=== PATIENT | female | born 1930 | race Caucasian/White ===

== ENCOUNTER 2016-09-30 22:09 | Inpatient (IN) | payer MEDICARE ==
--- NOTE | 2016-09-30 22:26 | ER Document Report ---
ED Fall - General Mode of Arrival: Medic Information source: Relative, Emergency Med Personnel Cannot obtain history due to: Dementia TRAVEL OUTSIDE OF THE [place] IN LAST 30 DAYS: No - HPI Occurred: Just prior to arrival Where: Home Context: Tripped Severity: Severe <LUTHER MADDEN - Last Filed: 09/30/16 22:44> <MANNYJODY - Last Filed: 10/24/16 11:04> - General Stated Complaint: FALL/CHEST AND HIP PAIN Notes: Patient is an 86-year-old female that presents to the emergency department today secondary to a fall that occurred at home. According to EMS and the at bedside, the patient tripped while getting up from the kitchen table falling on her left side. states the patient hit her head, landing on her left hip and left chest. Patient is severely demented which is baseline according to at bedside. EMS reports an oxygen saturation 85% on arrival which raised to 96% on 4L oxygen via nasal cannula. Patient is not on home oxygen according to . states the patient did not lose consciousness during the fall. Patient is on plavix. (LUTHER MADDEN) - Related data Allergies/Adverse Reactions: adhesive tape [Adhesive Tape] Allergy (Verified 09/30/16 23:24) alatrofloxacin mesylate [From Trovan] Allergy (Verified 09/30/16 23:24) aspirin [Aspirin] Allergy (Verified 09/30/16 23:24) codeine [Codeine] Allergy (Verified 09/30/16 23:24) diazepam [From Valium] Allergy (Verified 09/30/16 23:24) morphine [Morphine] Allergy (Verified 09/30/16 23:24) oxycodone [Oxycodone] Allergy (Verified 09/30/16 23:24) Shellfish * [Shellfish] Allergy (Verified 09/30/16 23:24) trovafloxacin mesylate [From Trovan] Allergy (Verified 09/30/16 23:24) darvel Allergy (Uncoded 09/30/16 23:24) dust Allergy (Uncoded 09/30/16 23:24) mold Allergy (Uncoded 09/30/16 23:24) steroids Allergy (Uncoded 09/30/16 23:24) Past Medical History - General Information source: [facility] Records Cannot obtain history due to: Dementia - Social History Smoking Status: Unknown if Ever Smoked Cigarette use (# per day): No Frequency of alcohol use: None Drug Abuse: None Lives with: Spouse/Significant other Family History: Reviewed & Not Pertinent - Past Medical History Cardiac Medical History: Reports: Hx Congestive Heart Failure, Hx Coronary Artery Disease, Hx Hypertension Endocrine Medical History: Reports: Hx Diabetes Mellitus Type 2 GI Medical History: Reports: Hx Gastroesophageal Reflux Disease, Hx Hiatal Hernia Past Surgical History: Reports: Hx Appendectomy, Hx Cardiac Surgery - Cardiac stent placed, Hx Section, Hx Coronary Stent, Hx Orthopedic Surgery - Immunizations Hx Diphtheria, Pertussis, Tetanus Vaccination: Yes <LUTHER MADDEN - Last Filed: 09/30/16 22:44> Review of Systems - Review of Systems -: Yes ROS unobtainable due to patient's medical condition - demented <LUTHER MADDEN - Last Filed: 09/30/16 22:44> Physical Exam <LUTHER MADDEN - Last Filed: 09/30/16 22:44> <JODY BRYANT - Last Filed: 10/24/16 11:04> - Vital signs Vitals: Temp Resp BP Pulse Ox 97.9 F 38 H 170/72 H 100 09/30/16 22:33 09/30/16 22:33 09/30/16 22:33 09/30/16 22:33 - Notes Notes: Physical Exam: General: Alert, confused at baseline according to at bedside. HEENT: Abrasion over left temporal area with surrounding hematoma. PERRL. Extraocular movements intact. Oropharynx clear. Neck: Supple. Non-tender. Respiratory: Tachypneic, equal breath sounds bilaterally. Left sided chest wall tenderness with palpation. Cardiovascular: Regular rate and rhythm. Abdominal: Normal Inspection. Non-tender. No distension. Normal Bowel Sounds. Back: Non-tender. No deformity or step off. Upper extremities: Skin tear over left elbow, bandage in place, bleeding controlled. Lower extremities: Left leg is shortened and externally rotated. Neurological: demented at baseline according to at bedside Psychological: unable to assess secondary to mental status Skin: Hematoma over left temporal area. (LUTHER MADDEN) Course <LUTHER MADDEN - Last Filed: 09/30/16 22:44> - Laboratory Result Diagrams: 10/05/16 04:32 10/05/16 04:32 <JODY BRYANT - Last Filed: 10/24/16 11:04> - Re-evaluation Re-evalutation: 10/01/16 04:39 Patient presents emergency department after fall. states she has a history of dementia medications include thyroid arthritis gastroesophageal reflux disease high blood pressure and jox-yphherl-ytsbdwxtg diabetes she is also on Plavix but he is not sure why. He says that her feet got tangled up she doesn't walk well. He states her foot got caught up underneath the dinner table and she fell onto her left side. On ED arrival the patient is dementia swinging at me unable to get a full history which she says is her baseline. Initially her O2 sat was 85% on room air. I sent her for a CT of the head and cervical spine portable chest x-ray CT of the thoracic spine CT of the chest x-ray of pelvis bilateral hips. She has a left femoral neck fracture as well as a left second third fourth fifth rib fracture. Multiple reassessments she is actually sleeping in no acute respiratory distress not requiring any oxygen. I contacted Dr. Felipe who is on for orthopedics who said he would be on consultation for her. I contacted surgery Dr. Duff for consultation in regards to the rib fractures and concerns for development in the future of ARDS pleural effusion. I then called Dr. Mills the hospitalist who agreed to admit the patient to the hospital full admit telemetry. Updated the . Right now the patient is sleeping she is not in any respiratory distress she is not hypoxic not requiring any pain medication. She's got good pulses and perfusion. Patient also with coincidental urinary tract infection which I gave her Rocephin for. 10/01/16 04:53 10/01/16 04:54 (JODY BRYANT) - Vital Signs Vital signs: Temp Pulse Resp BP Pulse Ox 97.7 F 87 10 L 134/60 H 99 10/06/16 16:00 10/06/16 16:00 10/06/16 16:00 10/06/16 16:00 10/06/16 16:29 - Laboratory Laboratory results interpreted by me: 09/30/16 10/01/16 10/01/16 23:47 01:02 01:02 WBC 19.7 H RBC 3.67 L Hgb 10.6 L Hct 32.4 L Seg Neuts % (Manual) 93 H Lymphocytes % (Manual) 5 L Monocytes % (Manual) 2 L Abs Neuts (Manual) 18.3 H BUN 22 H Glucose 258 H Direct Bilirubin TSH Free T4 Urine Glucose (UA) 50 H Urine Ketones TRACE H Urine Blood MODERATE H Urine Urobilinogen 2.0 H Ur Leukocyte Esterase TRACE H 10/01/16 10/01/16 10/01/16 01:02 01:02 01:02 WBC RBC Hgb Hct Seg Neuts % (Manual) Lymphocytes % (Manual) Monocytes % (Manual) Abs Neuts (Manual) BUN Glucose Direct Bilirubin 0.5 H TSH 0.03 L Free T4 2.33 H Urine Glucose (UA) Urine Ketones Urine Blood Urine Urobilinogen Ur Leukocyte Esterase Discharge <LUTHER MADDEN - Last Filed: 09/30/16 22:44> <JODY BRYANT - Last Filed: 10/24/16 11:04> - Discharge Clinical Impression: acute left femoral neck fracture, multiple left-sided rib fractures, acute urinary tract infection Disposition: ADMITTED INPATIENT Scribe Documentation - Scribe Written by Merarye:: Melanie Westbrook, [id number] 09/30/2016 acting as scribe for :: Manny <LUTHER MADDEN - Last Filed: 09/30/16 22:44>
[2016-10-01 00:44] LABS: APPEARANCE,URINE SLIGHTLY-CLOUDY; BILIRUBIN,URINE NEGATIVE (NEGATIVE); GLUCOSE, URINE 50 mg/dL (NEGATIVE); KETONES,URINE TRACE mg/dL (NEGATIVE); LEUKOCYTE ESTERASE,URINE TRACE (NEGATIVE); NITRITE,URINE NEGATIVE (NEGATIVE); PROTEIN,URINE NEGATIVE (NEGATIVE); URINE SPECIFIC GRAVITY 1.016
[2016-10-01 01:34] LABS: ANION GAP 14 (5-19); BLOOD UREA NITROGEN 22 mg/dL (7-20); CALCIUM 9.9 mg/dL (8.4-10.2); CARBON DIOXIDE 24 mmol/L (22-30); CHLORIDE 104 mmol/L (98-107); CREATINE KINASE 46 U/L (30-135); CREATININE RESULT 0.87 mg/dL (0.52-1.25); GLUCOSE 258 mg/dL (75-110); POTASSIUM 3.9 mmol/L (3.6-5.0); SODIUM 142.3 mmol/L (137-145)
[2016-10-01 01:39] LABS: HEMATOCRIT 32.4 % (36.0-47.0); HEMOGLOBIN 10.6 g/dL (12.0-15.5); HGB HCT DIFFERENCE -0.6; MEAN CORPUSCULAR HEMOGLOBIN 28.9 pg (27.0-33.4); MEAN CORPUSCULAR HGB CONC 32.7 g/dL (32.0-36.0); MEAN CORPUSCULAR VOLUME 88 fl (80-97); RED BLOOD COUNT 3.67 10^6/uL (3.72-5.28); RED CELL DISTRIBUTION WIDTH 12.8 % (11.5-14.0); WHITE BLOOD COUNT 19.7 10^3/uL (4.0-10.5)
[2016-10-01 01:59] LABS: BASOPHILS % (MANUAL) 0 % (0-2); EOSINOPHILS % (MANUAL) 0 % (0-6); LYMPHOCYTES % (MANUAL) 5 % (13-45); TOTAL CELLS COUNTED 100
[2016-10-01 02:00] LABS: ANISOCYTOSIS SLIGHT; BURR CELLS SLIGHT; OVALOCYTES 1+; POIKILOCYTOSIS 1+; TOXIC GRANULATION 1+
[2016-10-01] MEDS ORDERED: CEFTRIAXONE INJ 1000 MG VIAL IM ONE (03:09)
[2016-10-01] MEDS ORDERED: LIDOCAINE 1% INJ-PF (10 MG/ML) 30 ML SDV ONE (05:03)
[2016-10-01] MEDS ORDERED: DEXTROSE 40% GEL 15 GM TUBE PO PRN ×2 (07:37)
[2016-10-01] MEDS ORDERED: DEXTROSE 50%-WATER 25 GM/50 ML DISP.SYRIN IV PRN ×2 (07:37)
[2016-10-01] MEDS ORDERED: GLUCAGON,HUMAN RECOMB 1 MG INJ IM PRN (07:37)
[2016-10-01] MEDS ORDERED: NORMAL SALINE 1000 ML 1,000 ML IV PRN ×2 (07:39→14:49)
[2016-10-01] MEDS ORDERED: ACETAMINOPHEN 650 MG SUPP.RECT PR PRN (07:39)
--- NOTE | 2016-10-01 07:53 | PDOC CONSULTATION ---
Consultation Consult Date: 10/01/16 Attending physician:: JODY BRYANT Consult reason:: Hip fracture History of Present Illness Admission Date/PCP: 10/01/16 05:01 SORAIDA ALANIZ MD History of Present Illness: MINESH TROTTER is a 86 year old female who was a household ambulator with a walker who fell on the day of admission and sustained a left hip fracture as well as rib fractures. She is admitted to the hospital service and orthopedics is consult it for management of the hip fracture. Past Medical History Cardiac Medical History: Reports: Congestive Heart Failure, Coronary Artery Disease, Hypertension Endocrine Medical History: Reports: Diabetes Mellitus Type 2 GI Medical History: Reports: Gastroesophageal Reflux Disease, Hiatal Hernia Psychiatric Medical History: Reports: Dementia Past Surgical History Past Surgical History: Reports: Appendectomy, Section, Coronary Stent, Orthopedic Surgery Denies: Cholecystectomy Social History Lives with: Family, Spouse/Significant other Smoking Status: Unknown if Ever Smoked - Advance Directive Resuscitation Status: Full Code Family History Family History: Reviewed & Not Pertinent Parental Family History Reviewed: No Children Family History Reviewed: No Sibling(s) Family History Reviewed.: No Medication/Allergy Home Medications: Atorvastatin Calcium [Lipitor 40 mg Tablet] 40 mg PO QHS 05/21/13 Clopidogrel Bisulfate [Plavix 75 mg Tablet] 75 mg PO DAILY 05/21/13 Folic Acid/Multivit-Min/Lutein [Centrum Silver Chewable Tablet] 1 each PO DAILY 05/21/13 Isosorbide Dinitrate 60 mg PO DAILY 05/21/13 Levothyroxine Sodium 150 mcg PO DAILY 05/21/13 Memantine HCl [Namenda 10 mg Tablet] 10 mg PO BID 05/21/13 Cholecalciferol (Vitamin D3) [Vitamin D3] 1,000 unit PO DAILY 04/02/15 Metoprolol Tartrate [Lopressor 25 mg Tablet] 12.5 mg pe PO BID 04/02/15 Valsartan/Hydrochlorothiazide [Diovan Hct 160-12.5 mg Tab] 1 each PO DAILY 04/02 Ranitidine HCl [Zantac 75 mg Tablet] 75 mg PO BID #20 tablet 01/28/16 Glyburide [Glyburide] 10/01/16 Meloxicam [Meloxicam] 10/01/16 Omeprazole [Omeprazole] 10/01/16 Solifenacin Succinate [Vesicare] 10/01/16 Tramadol HCl [Tramadol HCl] 50 mg PO 10/01/16 Allergies/Adverse Reactions: adhesive tape [Adhesive Tape] Allergy (Verified 09/30/16 23:24) alatrofloxacin mesylate [From Trovan] Allergy (Verified 09/30/16 23:24) aspirin [Aspirin] Allergy (Verified 09/30/16 23:24) codeine [Codeine] Allergy (Verified 09/30/16 23:24) diazepam [From Valium] Allergy (Verified 09/30/16 23:24) morphine [Morphine] Allergy (Verified 09/30/16 23:24) oxycodone [Oxycodone] Allergy (Verified 09/30/16 23:24) Shellfish * [Shellfish] Allergy (Verified 09/30/16 23:24) trovafloxacin mesylate [From Trovan] Allergy (Verified 09/30/16 23:24) darvel Allergy (Uncoded 09/30/16 23:24) dust Allergy (Uncoded 09/30/16 23:24) mold Allergy (Uncoded 09/30/16 23:24) steroids Allergy (Uncoded 09/30/16 23:24) Review of Systems All systems: as per PMH Physical Exam Vital Signs: Temp Pulse Resp BP Pulse Ox 36.6 C 18 142/59 H 98 09/30/16 22:33 10/01/16 06:01 10/01/16 06:53 10/01/16 06:53 General appearance: PRESENT: no acute distress, thin Head exam: PRESENT: normocephalic Respiratory exam: PRESENT: unlabored Pulses: PRESENT: +1 pedal pulses bilateral Vascular exam: PRESENT: normal capillary refill GI/Abdominal exam: PRESENT: soft Rectal exam: PRESENT: deferred Extremities exam: PRESENT: other - Left lower extremity rotated and shortened Skin exam: PRESENT: dry, intact, warm. ABSENT: cyanosis, rash Results Impressions: Cervical Spine CT 10/01/16 00:00 IMPRESSION: No acute findings. Chest CT 10/01/16 00:00 IMPRESSION: Mildly displaced left 2nd, 3rd, 4th, and 5th rib fractures. Chest X-Ray 10/01/16 00:00 IMPRESSION: No acute cardiopulmonary findings. Head CT 10/01/16 00:00 IMPRESSION: NORMAL BRAIN CT WITHOUT CONTRAST. Hip X-Ray 10/01/16 00:00 IMPRESSION: Impaction deformity/fracture of the left femoral neck. Lumbar Spine X-Ray 10/01/16 00:00 IMPRESSION: No acute findings. Status: Imported from PACS Assessment & Plan - Diagnosis (1) Closed left hip fracture Is this a current diagnosis for this admission?: YesPlan: 86-year-old white female who is a household ambulator prior to a fall in which she sustained a left displaced femoral neck fracture. Tentative plan will be to proceed with a left proximal femoral hemiarthroplasty under choice anesthesia on an inpatient basis pending medical clearance and or availability. Usual last approximately 30 minutes involved 100 mL of blood loss - Time Time Spent: 50 to 70 Minutes Anticipated discharge: SNF Within: Other
--- NOTE | 2016-10-01 07:53 | EKG REPORT ---
SEVERITY:- ABNORMAL ECG - SINUS RHYTHM FIRST DEGREE AV BLOCK PROBABLE ANTEROSEPTAL INFARCT, AGE INDETERM : Confirmed by: Caleb Max MD 01-Oct-2016 07:52:28
--- NOTE | 2016-10-01 08:16 | PDOC H&P ---
History of Present Illness Admission Date/PCP: 10/01/16 05:01 SORAIDA ALANIZ MD Patient complains of: FALL WITH LEFT SIDED PAIN History of Present Illness: MINESH TROTTER is a 86 year old Caucasion female with underlying severe dementia, Along with hypertension, hypothyroidism, qva-fumjdxq-gtrwbliez diabetes mellitus, hyperlipidemia, and known coronary artery disease, status post stent implant, who presents to the emergency room for evaluation of above complaints. Patient has been discussed with emergency room physician who evaluated the patient. Patient is somnolent and is able to provide no history whatsoever in terms of acute or chronic events, review of systems, personal habits, family history, etc. Marekvictor hugoc is present at her side, and while somewhat informative, is not the best historian himself. Old inpatient records are reviewed. While walking in her kitchen, she tripped over the foot of her kitchen table, landing on her left side. Struck her head, but did not lose consciousness. Oxygen saturation of 85% upon EMS arrival, with increase in 96% on 4 L oxygen per nasal cannula. Normally not on home oxygen, according to . Prior to the above events, she was in her usual state of health, with no nausea vomiting, fever chills, headache chest or abdominal pain. Patient was quite agitated upon initial ER arrival, but now is sleeping quietly. No further information available this point in time. . Prior to my being called, emergency room physician did speak with on-call orthopedics and general surgery, who have agreed to see the patient in consultation. Laboratory results are listed in [facility] [employer] and are reviewed. X-ray summary results are listed below, with full report(s) reviewed. . EKG reviewed. And compared to a prior tracing from January 27 of last year. Social history/personal habits: Subsequent information is obtained from history and physical exam from 04/01/2015, when she was admitted for chest pain. Document is reviewed. . 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 Allergies/adverse reactions are listed in [employer] and are reviewed. Home medications Home medications initially autopopulated into [employer] may not accurately reflect patient's true medications, dosages, and/or frequencies. mix technician to reconcile medications. Unfortunately, patient not able to provide any information related to her medications/dosages/frequencies. REVIEW OF SYSTEMS: See history and present illness.No further information available this point in time. PHYSICAL EXAMINATION: 5 feet 8 inches tall. 53.3 kg. 17.9 kg/m BMI. Blood pressure 169/79. Pulse 79 and regular. 93% saturation on room air. Respirations are 17 and unlabored. Patient maintaining her airway nicely. Thin frail elderly female appearing approximately her stated age. Asleep. Does not respond to name. Maintaining airway well. is present at her side. Skin is warm and dry. No grossly obvious evidence of rash in areas of skin examined. No subcutaneous nodules palpated. ENT: Hearing can't be adequately evaluated due to her current status. No Gonzalez sign. Eyes: No scleral icterus. Pupils equal and reactive to light at 4 mm. [place] conjunctivae. No raccoon eyes. Neck is nontender to palpation. Midline trachea. No palpable thyroid nodule mass enlargement or tenderness. Lymphatic: No palpable cervical or clavicular nodes. Neck and lymphatic exams limited by patient body habitus. Psychiatric: Not able to be adequately evaluated due to her current status. See History and Present Illness. Lungs: Auscultation reveals clear and equal breath sounds bilaterally. No use of accessory respiratory muscles. Cardiovascular: Heart regular rate and rhythm, without gallop murmur or rub. No carotid or abdominal aortic bruits. No ankle or pedal edema. palpable dorsalis pedis pulses. Abdomen: soft, , slightly distended nontender with positive bowel sounds. Unable to adequately evaluate abdomen for masses or organomegaly due to her distention. Extremities: Feet are warm and dry. No calf tenderness to compression. No grossly obvious visual evidence of calf swelling. Gentle manipulation of right lower extremity fails to reveal any obvious evidence of injury or instability to knee hip or ankle. Left lower extremity slightly shorter than right; no manipulation, deu to her injury. Neurologic: Right Patellar reflex absent; not checked on left due to her injury. Absent right Babinski; not checked on left due to her injury. Light touch can't be adequately evaluated due to her current status.. Past Medical History Cardiac Medical History: Reports: Congestive Heart Failure, Coronary Artery Disease, Hyperlipidema, Hypertension Denies: DVT, Myocardial Infarction, Pulmonary Embolism Pulmonary Medical History: Denies: Asthma, Chronic Obstructive Pulmonary Disease (COPD), Sleep Apnea EENT Medical History: Reports: Eyes - Glasses Denies: Ears, Throat Neurological Medical History: Denies: Hemorrhagic CVA, Ischemic CVA, Seizures Endocrine Medical History: Reports: Diabetes Mellitus Type 2, Hypothyroidism Denies: Hyperthyroidism Renal/ Medical History: Reports: None Malignancy Medical History: Reports: Skin Cancer - Excised from forehead. GI Medical History: Reports: Gastroesophageal Reflux Disease, Hiatal Hernia Denies: Cirrhosis, Hepatitis, Peptic Ulcer Disease Musculoskeltal Medical History: Reports: Arthritis Psychiatric Medical History: Reports: Dementia, Depression - History of Denies: Alcohol Dependency, Substance Abuse, Tobacco Dependency Hematology: Reports: Other - Easy bruising Infectious Medical History: Denies: Hepatitis B, Hepatitis C Past Surgical History Past Surgical History: Reports: Appendectomy, Section, Coronary Stent, Orthopedic Surgery Denies: Cholecystectomy Social History Information Source: Relative - , Emergency Med Personnel, [facility] Records Lives with: Spouse/Significant other Smoking Status: Unknown if Ever Smoked Frequency of Alcohol Use: None Drugs: None - Advance Directive Resuscitation Status: Full Code Surrogate healthcare decision maker:: Family History Family History: Reviewed & Not Pertinent, Malignancy Parental Family History Reviewed: Yes - father of cancer. Mother of multiple sclerosis. Children Family History Reviewed: Yes - Healthy Sibling(s) Family History Reviewed.: Yes - Healthy Medication/Allergy Home Medications: Atorvastatin Calcium [Lipitor 40 mg Tablet] 40 mg PO QHS 05/21/13 Clopidogrel Bisulfate [Plavix 75 mg Tablet] 75 mg PO Q2D 05/21/13 Folic Acid/Multivit-Min/Lutein [Centrum Silver Chewable Tablet] 1 each PO DAILY 05/21/13 Isosorbide Dinitrate 60 mg PO DAILY 05/21/13 Levothyroxine Sodium 150 mcg PO DAILY 05/21/13 Memantine HCl [Namenda 10 mg Tablet] 10 mg PO BID 05/21/13 Cholecalciferol (Vitamin D3) [Vitamin D3] 1,000 unit PO DAILY 04/02/15 Metoprolol Tartrate [Lopressor 25 mg Tablet] 12.5 mg PO BID 04/02/15 Valsartan/Hydrochlorothiazide [Diovan Hct 160-12.5 mg Tab] 1 each PO DAILY 04/02 Ranitidine HCl [Zantac 75 mg Tablet] 75 mg PO BID #20 tablet 01/28/16 Glipizide [Glipizide ER] 5 mg PO DAILY 10/01/16 Ranitidine HCl [Zantac 75 mg Tablet] 75 mg PO BID 10/01/16 Tramadol HCl [Ultram 50 mg Tablet] 50 mg PO QID 10/01/16 Allergies/Adverse Reactions: adhesive tape [Adhesive Tape] Allergy (Verified 09/30/16 23:24) alatrofloxacin mesylate [From Trovan] Allergy (Verified 09/30/16 23:24) aspirin [Aspirin] Allergy (Verified 09/30/16 23:24) codeine [Codeine] Allergy (Verified 09/30/16 23:24) diazepam [From Valium] Allergy (Verified 09/30/16 23:24) morphine [Morphine] Allergy (Verified 09/30/16 23:24) oxycodone [Oxycodone] Allergy (Verified 09/30/16 23:24) Shellfish * [Shellfish] Allergy (Verified 09/30/16 23:24) trovafloxacin mesylate [From Trovan] Allergy (Verified 09/30/16 23:24) darvel Allergy (Uncoded 09/30/16 23:24) dust Allergy (Uncoded 09/30/16 23:24) mold Allergy (Uncoded 09/30/16 23:24) steroids Allergy (Uncoded 09/30/16 23:24) Physical Exam Vital Signs: Temp Pulse Resp BP Pulse Ox 97.9 F 18 142/59 H 98 09/30/16 22:33 10/01/16 06:01 10/01/16 06:53 10/01/16 06:53 Results Impressions: Cervical Spine CT 10/01/16 00:00 IMPRESSION: No acute findings. Chest CT 10/01/16 00:00 IMPRESSION: Mildly displaced left 2nd, 3rd, 4th, and 5th rib fractures. Chest X-Ray 10/01/16 00:00 IMPRESSION: No acute cardiopulmonary findings. Head CT 10/01/16 00:00 IMPRESSION: NORMAL BRAIN CT WITHOUT CONTRAST. Hip X-Ray 10/01/16 00:00 IMPRESSION: Impaction deformity/fracture of the left femoral neck. Lumbar Spine X-Ray 10/01/16 00:00 IMPRESSION: No acute findings. Assessment & Plan - Diagnosis (1) Abnormal urinalysis Is this a current diagnosis for this admission?: YesPlan: Urine culture. Will forego further antibiotics at this point in time. (2) Closed left hip fracture Qualifiers: Encounter type: initial encounter Qualified Code(s): S72.002A - Fracture of unspecified part of neck of left femur, initial encounter for closed fracture Is this a current diagnosis for this admission?: YesPlan: Has been seen by Dr. Felipe of orthopedics, who will manage her injury. Knee high SCDs for DVT prophylaxis; medical prophylaxis per orthopedics, per usual protocol Impression and plans were discussed with , who concurs. Time spent in evaluation and management of patient: 61 minutes. (3) Fall Is this a current diagnosis for this admission?: Yes (4) Multiple fractures of ribs of left side Qualifiers: Encounter type: initial encounter Fracture type: closed Qualified Code(s): S22.42XA - Multiple fractures of ribs, left side, initial encounter for closed fracture Is this a current diagnosis for this admission?: YesPlan: General surgery aware of consult. (5) CAD (coronary artery disease) Qualifiers: Coronary Disease-Associated Artery/Lesion type: [place] artery [place] vs. transplanted heart: [place] heart Associated angina: without angina Qualified Code(s): I25.10 - Atherosclerotic heart disease of [place] coronary artery without angina pectoris Is this a current diagnosis for this admission?: YesPlan: Resume home medications as appropriate once these have been determined and reviewed. (6) Dementia Qualifiers: Dementia type: unspecified type Dementia behavioral disturbance: with behavioral disturbance Qualified Code(s): F03.91 - Unspecified dementia with behavioral disturbance; F10.97 - Alcohol use, unspecified with alcohol- induced persisting dementia Is this a current diagnosis for this admission?: YesPlan: Resume home medications as appropriate once these have been determined and reviewed. (7) Diabetes mellitus type 2 in nonobese Is this a current diagnosis for this admission?: YesPlan: Accu-Cheks with appropriate sliding scale coverage. Resume home medications as appropriate once these have been determined and reviewed. (8) Hyperlipidemia Qualifiers: Hyperlipidemia type: unspecified Qualified Code(s): E78.5 - Hyperlipidemia, unspecified Is this a current diagnosis for this admission?: YesPlan: Resume home medications as appropriate once these have been determined and reviewed. (9) Hypothyroid Qualifiers: Hypothyroidism type: unspecified Qualified Code(s): E03.9 - Hypothyroidism, unspecified Is this a current diagnosis for this admission?: YesPlan: Resume home medications as appropriate once these have been determined and reviewed. - Inpatient Certification Based on my medical assessment, after consideration of the patient's comorbidities, presenting symptoms, or acuity I expect that the services needed warrant INPATIENT care.: Yes I certify that my determination is in accordance with my understanding of Medicare's requirements for reasonable and necessary INPATIENT services [42 CFR 412.3e].: Yes Medical Necessity: Need Close Monitoring Due to Risk of Patient Decompensation, Need For IV Fluids, Need for Pain Control, Need for Surgery, Risk of Diagnosis Which Will Require Inpatient Eval/Care/Monitoring Post Hospital Care: D/C or Transfer Summary
[2016-10-01 08:32] LABS: ADD ON TESTING BLD IN LAB ACKNOWLEDGE
[2016-10-01 08:49] LABS: ALANINE AMINOTRANSFERASE 34 U/L (9-52); ALBUMIN 3.6 g/dL (3.5-5.0); ALKALINE PHOSPHATASE 118 U/L (38-126); ASPARTATE AMINO TRANSFERASE 26 U/L (14-36); BILIRUBIN,DIRECT 0.5 mg/dL (0.0-0.4); BILIRUBIN,TOTAL 0.8 mg/dL (0.2-1.3); MAGNESIUM 1.8 mg/dL (1.6-2.3); TOTAL PROTEIN 6.8 g/dL (6.3-8.2)
[2016-10-01] MEDS ORDERED: METOPROLOL TARTRATE 25 MG TABLET PO SCH (10:00)
[2016-10-01] MEDS ORDERED: (PENDING PHARMACY ID) (Cholecalciferol (Vitamin D3) [Vitamin D3] 1,000 UNIT) PO SCH (10:00)
[2016-10-01] MEDS ORDERED: LEVOTHYROXINE SODIUM 0.075 MG TABLET PO SCH (10:00)
[2016-10-01] MEDS ORDERED: LEVOTHYROXINE SODIUM 0.05 MG TABLET PO SCH (10:00)
[2016-10-01] MEDS ORDERED: (PENDING PHARMACY ID) (Folic Acid/Multivit-Min/Lutein [Centrum Silver Chewable Tablet] 1 E PO SCH (10:00)
--- NOTE | 2016-10-01 11:38 | CONSULTATION REPORT E ---
Consultation Report NAME: MINESH TROTTER : 1930 AGE: 86Y DATE: 10/01/2016 ROOM: [id number] A TO: MARIO HERNANDEZ M.D. FROM: YARIEL HARTMAN M.D. Requesting Physician REASON FOR CONSULTATION: This is a consultation note from hospitalist for evaluation and management of some pain in the left side of the chest area from a fractured ribs. HISTORY OF PRESENT ILLNESS: The patient is an 86-year-old female patient with a history of dementia. She fell, sustained injuries, fell apparently at home, injured from the kitchen table, sustained a laceration and bruising on the left side of the face and then subsequent imaging studies revealed a left upper rib 3rd, 4th, 5th rib area fractures on x-ray analysis. She has a history of also sustaining a fracture of the left femoral neck. For these multiple injuries, she is being admitted to the hospitalist service for pain management and also orthopedic management. Surgical consultation is for the rib fractures. The patient admitted to the hospital, no neurological event. The patient apparently has not had any shortness of breath, complaining of minimal pain. PAST MEDICAL HISTORY: Per past medical problems are multiple includin. A history of congestive cardiac failure. 2. Coronary artery disease. 3. Hyperlipidemia. 4. Hypertension. PAST SURGICAL HISTORY 1. She has a history of appendectomy. 2. section. 3. Coronary artery stent. REVIEW OF SYSTEMS: Review of further symptoms as per examination. PHYSICAL EXAMINATION: GENERAL: Elderly female patient. At this point, she is awake, alert, arousable, appears to not be in any distress, afebrile. HEENT: On the left side of the face, there is some bruising, but no lacerations. No scalp lacerations. No deformities on the scalp. Normocephalic. No ecchymosis in the eyes. NECK: Soft. Spine nontender. No deformities of the C spine. CHEST: Both lungs - good air entry. Bilateral equal air entry in both lungs. There is mild tenderness in the left side upper chest area. ABDOMEN: Examination soft and nontender. PELVIC: Pelvis is stable. EXTREMITIES: Warm and perfused. DIAGNOSTIC DATA: Reviewing imaging studies. CT of the head revealed no evidence of any neurological trauma or brain injuries. X-rays of the hip area: Left femoral fracture. Chest imaging: Chest CT revealed fractures of the left 2nd, 3rd, 4th, and 5th ribs with mild displacement, but no significant pulmonary contusion or hemo- or pneumothorax. CT of the C spine: No acute findings. IMPRESSION AND PLAN: Overall, fall on the kitchen table area and sustained a fracture of the left hip and for that, she is being managed with orthopedics. Fractures of the left ribs, no pulmonary contusion signs, no pneumo or hemothorax. Mainly for that, pain management and incentive spirometry. No other surgical intervention required as of this moment. Thank you for allowing us to participate in the care of this pleasant patient. DICTATING PHYSICIAN: MARIO HERNANDEZ M.D. [id number] PHY#: [id number] ID: [id number] JOB#: [id number] ACCT: [id number] cc:MARIO HERNANDEZ M.D. >
[2016-10-01] MEDS: MEMANTINE HCL 10 MG TABLET PO SCH ×2 (11:39→17:09)
[2016-10-01] MEDS: METOPROLOL TARTRATE 25 MG TABLET PO SCH ×2 (11:39→20:34)
[2016-10-01] MEDS: CHOLECALCIFEROL (D3) 1,000 UNIT TABLET PO SCH (11:39)
[2016-10-01] MEDS: TRAMADOL HCL 50 MG TABLET PO PRN ×2 (14:25→20:33)
--- NOTE | 2016-10-01 15:08 | PDOC PROGRESS REPORT ---
Subjective Progress Note for:: 10/01/16 - . Subjective:: The patient was seen earlier today on rounds. The patient was asleep when making rounds but did awaken to stimuli. The patient is unable to provide any history. Patient's is present at the bedside and active in the patient' s care however he is significantly hard of hearing. There have been no reported episodes of vomiting nor diarrhea. The patient has remained afebrile. Blood pressures have been in a good range. When prompted the patient voices no other concerns at this time. Discussed CODE STATUS with the patient's . Given the patient's multiple comorbidities as well as her dementia would like to proceed with DO NOT RESUSCITATE DO NOT INTUBATE status. Physical Exam Vital Signs: Temp Pulse Resp BP Pulse Ox 98.0 F 65 20 147/59 H 100 10/01/16 11:55 10/01/16 11:55 10/01/16 11:55 10/01/16 11:55 10/01/16 11:55 Intake & Output 09/29/16 09/30/16 10/01/16 23:59 23:59 23:59 Weight 52.3 kg General appearance: PRESENT: no acute distress, thin Exam: Frail-appearing Head exam: PRESENT: atraumatic, normocephalic Eye exam: PRESENT: conjunctiva pink, EOMI, PERRLA. ABSENT: scleral icterus Ear exam: PRESENT: normal external ear exam Mouth exam: PRESENT: moist, tongue midline Neck exam: ABSENT: carotid bruit, JVD, lymphadenopathy, thyromegaly, tracheal deviation Respiratory exam: PRESENT: clear to auscultation george, symmetrical, unlabored, other - Tenderness noted on both lateral chest estes.. ABSENT: rales, rhonchi, tachypnea, wheezes Cardiovascular exam: PRESENT: RRR. ABSENT: diastolic murmur, rubs, systolic murmur Pulses: PRESENT: normal dorsalis pedis pul Vascular exam: PRESENT: pallor GI/Abdominal exam: PRESENT: normal bowel sounds, soft. ABSENT: distended, guarding, mass, organolmegaly, rebound, tenderness Rectal exam: PRESENT: deferred Extremities exam: PRESENT: full ROM. ABSENT: calf tenderness, clubbing, pedal edema Neurological exam: PRESENT: alert, awake, oriented to person. ABSENT: motor sensory deficit, normal gait Psychiatric exam: PRESENT: flat affect Skin exam: PRESENT: dry, intact, pallor, warm. ABSENT: cyanosis, rash Results Laboratory Results: Labs- Last Values WBC 19.7 10^3/uL (4.0-10.5) H 10/01/16 01:02 RBC 3.67 10^6/uL (3.72-5.28) L 10/01/16 01:02 Hgb 10.6 g/dL (12.0-15.5) L 10/01/16 01:02 Hct 32.4 % (36.0-47.0) L 10/01/16 01:02 MCV 88 fl (80-97) 10/01/16 01:02 MCH 28.9 pg (27.0-33.4) 10/01/16 01:02 MCHC 32.7 g/dL (32.0-36.0) 10/01/16 01:02 RDW 12.8 % (11.5-14.0) 10/01/16 01:02 Plt Count 330 10^3/uL (150-450) 10/01/16 01:02 Total Counted 100 10/01/16 01:02 Seg Neutrophils % Not Reportable 10/01/16 01:02 Seg Neuts % (Manual) 93 % (42-78) H 10/01/16 01:02 Lymphocytes % Not Reportable 10/01/16 01:02 Lymphocytes % (Manual) 5 % (13-45) L 10/01/16 01:02 Monocytes % Not Reportable 10/01/16 01:02 Monocytes % (Manual) 2 % (3-13) L 10/01/16 01:02 Eosinophils % Not Reportable 10/01/16 01:02 Eosinophils % (Manual) 0 % (0-6) 10/01/16 01:02 Basophils % Not Reportable 10/01/16 01:02 Basophils % (Manual) 0 % (0-2) 10/01/16 01:02 Absolute Neutrophils Not Reportable 10/01/16 01:02 Abs Neuts (Manual) 18.3 10^3/uL (1.7-8.2) H 10/01/16 01:02 Absolute Lymphocytes Not Reportable 10/01/16 01:02 Abs Lymphs (Manual) 1.0 10^3/uL (0.5-4.7) 10/01/16 01:02 Absolute Monocytes Not Reportable 10/01/16 01:02 Abs Monocytes (Manual) 0.4 10^3/uL (0.1-1.4) 10/01/16 01:02 Absolute Eosinophils Not Reportable 10/01/16 01:02 Absolute Eos (Manual) 0.0 10^3/uL (0.0-0.6) 10/01/16 01:02 Absolute Basophils Not Reportable 10/01/16 01:02 Abs Basophils (Manual) 0.0 10^3/uL (0.0-0.2) 10/01/16 01:02 Toxic Granulation 1+ 10/01/16 01:02 Platelet Estimate Cancelled 09/30/16 23:15 Platelet Comment ADEQUATE 10/01/16 01:02 Poikilocytosis 1+ 10/01/16 01:02 Anisocytosis SLIGHT 10/01/16 01:02 Ovalocytes 1+ 10/01/16 01:02 Duyen Cells SLIGHT 10/01/16 01:02 Sodium 142.3 mmol/L (137-145) 10/01/16 01:02 Potassium 3.9 mmol/L (3.6-5.0) 10/01/16 01:02 Chloride 104 mmol/L (98-107) 10/01/16 01:02 Carbon Dioxide 24 mmol/L (22-30) 10/01/16 01:02 Anion Gap 14 (5-19) 10/01/16 01:02 BUN 22 mg/dL (7-20) H 10/01/16 01:02 Creatinine 0.87 mg/dL (0.52-1.25) 10/01/16 01:02 Est GFR ( Amer) > 60 (>60) 10/01/16 01:02 Est GFR (Non-Af Amer) > 60 (>60) 10/01/16 01:02 Glucose 258 mg/dL (75-110) H 10/01/16 01:02 POC Glucose 168 mg/dL (70-110) H 10/01/16 11:58 Calcium 9.9 mg/dL (8.4-10.2) 10/01/16 01:02 Magnesium 1.8 mg/dL (1.6-2.3) 10/01/16 01:02 Total Bilirubin 0.8 mg/dL (0.2-1.3) 10/01/16 01:02 Direct Bilirubin 0.5 mg/dL (0.0-0.4) H 10/01/16 01:02 Indirect Bilirubin Not Reportable 10/01/16 01:02 Neonat Total Bilirubin Not Reportable 10/01/16 01:02 AST 26 U/L (14-36) 10/01/16 01:02 ALT 34 U/L (9-52) 10/01/16 01:02 Alkaline Phosphatase 118 U/L (38-126) 10/01/16 01:02 Creatine Kinase 46 U/L (30-135) 10/01/16 01:02 Troponin I 0.013 ng/mL 10/01/16 00:09 Total Protein 6.8 g/dL (6.3-8.2) 10/01/16 01:02 Albumin 3.6 g/dL (3.5-5.0) 10/01/16 01:02 TSH 0.03 uIU/mL (0.47-4.68) L 10/01/16 01:02 Urine Color YELLOW 09/30/16 23:47 Urine Appearance SLIGHTLY-CLOUDY 09/30/16 23:47 Urine pH 5.0 (5.0-9.0) 09/30/16 23:47 Ur Specific [place] 1.016 09/30/16 23:47 Urine Protein NEGATIVE mg/dL (NEGATIVE) 09/30/16 23:47 Urine Glucose (UA) 50 mg/dL (NEGATIVE) H 09/30/16 23:47 Urine Ketones TRACE mg/dL (NEGATIVE) H 09/30/16 23:47 Urine Blood MODERATE (NEGATIVE) H 09/30/16 23:47 Urine Nitrite NEGATIVE (NEGATIVE) 09/30/16 23:47 Urine Bilirubin NEGATIVE (NEGATIVE) 09/30/16 23:47 Urine Urobilinogen 2.0 mg/dL (<2.0) H 09/30/16 23:47 Ur Leukocyte Esterase TRACE (NEGATIVE) H 09/30/16 23:47 Urine WBC (Auto) 7 /HPF 09/30/16 23:47 Urine RBC (Auto) 12 /HPF 09/30/16 23:47 Urine Mucus (Auto) RARE /LPF 09/30/16 23:47 Urine Ascorbic Acid NEGATIVE (NEGATIVE) 09/30/16 23:47 Slides for Path Review Cancelled 09/30/16 23:15 Impressions: Cervical Spine CT 10/01/16 00:00 IMPRESSION: No acute findings. Chest CT 10/01/16 00:00 IMPRESSION: Mildly displaced left 2nd, 3rd, 4th, and 5th rib fractures. Chest X-Ray 10/01/16 00:00 IMPRESSION: No acute cardiopulmonary findings. Head CT 10/01/16 00:00 IMPRESSION: NORMAL BRAIN CT WITHOUT CONTRAST. Hip X-Ray 10/01/16 00:00 IMPRESSION: Impaction deformity/fracture of the left femoral neck. Lumbar Spine X-Ray 10/01/16 00:00 IMPRESSION: No acute findings. Assessment & Plan - Diagnosis (1) Urinary tract infection Qualifiers: Urinary tract infection type: site unspecified Is this a current diagnosis for this admission?: YesPlan: Will continue antibiotic coverage and await culture and sensitivity. (2) Closed left hip fracture Qualifiers: Encounter type: initial encounter Qualified Code(s): S72.002A - Fracture of unspecified part of neck of left femur, initial encounter for closed fracture Is this a current diagnosis for this admission?: YesPlan: The patient is to go to the OR in the a.m. with Dr. Felipe. (3) Multiple fractures of ribs of left side Qualifiers: Encounter type: initial encounter Fracture type: closed Qualified Code(s): S22.42XA - Multiple fractures of ribs, left side, initial encounter for closed fracture Is this a current diagnosis for this admission?: YesPlan: Do appreciate surgical's input with this. Will encourage incentive spirometry. (4) CAD (coronary artery disease) Qualifiers: Coronary Disease-Associated Artery/Lesion type: [place] artery [place] vs. transplanted heart: [place] heart Associated angina: without angina Qualified Code(s): I25.10 - Atherosclerotic heart disease of [place] coronary artery without angina pectoris Is this a current diagnosis for this admission?: YesPlan: Will hold Plavix for the patient had OR. (5) Dementia Qualifiers: Dementia type: unspecified type Dementia behavioral disturbance: with behavioral disturbance Qualified Code(s): F03.91 - Unspecified dementia with behavioral disturbance; F10.97 - Alcohol use, unspecified with alcohol- induced persisting dementia Is this a current diagnosis for this admission?: Yes (6) Diabetes mellitus type 2 in nonobese Is this a current diagnosis for this admission?: YesPlan: Will continue sliding scale coverage (7) Hyperlipidemia Qualifiers: Hyperlipidemia type: unspecified Qualified Code(s): E78.5 - Hyperlipidemia, unspecified Is this a current diagnosis for this admission?: YesPlan: Will hold statin given the patient's recent fall. (8) Hypothyroid Qualifiers: Hypothyroidism type: unspecified Qualified Code(s): E03.9 - Hypothyroidism, unspecified Is this a current diagnosis for this admission?: YesPlan: TSH does appear low. Will obtain T4. - Time Time Spent with patient: on this visit including assessment, plan, physical examination, family meeting, specialty collaboration, and attempted patient education is 35 minutes. Time Spent with patient: 35 or more minutes Medications reviewed and adjusted accordingly: Yes Anticipated discharge: SNF Disposition: The patient is a DO NOT RESUSCITATE DO NOT INTUBATE. Pending patient's symptomatology and diagnostic findings will reevaluate as needed.
[2016-10-01] MEDS: INSULIN LISPRO 100 UNIT/ML 3 ML VIAL SUBCUT PRN (17:09)
[2016-10-01] MEDS: QUETIAPINE FUMARATE 25 MG TABLET PO SCH (20:33)
[2016-10-02 05:06] LABS: HEMATOCRIT 30.7 % (36.0-47.0); HEMOGLOBIN 10.3 g/dL (12.0-15.5); HGB HCT DIFFERENCE 0.2; MEAN CORPUSCULAR HEMOGLOBIN 29.1 pg (27.0-33.4); MEAN CORPUSCULAR HGB CONC 33.6 g/dL (32.0-36.0); MEAN CORPUSCULAR VOLUME 86 fl (80-97); RED BLOOD COUNT 3.55 10^6/uL (3.72-5.28); RED CELL DISTRIBUTION WIDTH 12.7 % (11.5-14.0); WHITE BLOOD COUNT 12.3 10^3/uL (4.0-10.5)
[2016-10-02 05:27] LABS: ANION GAP 12 (5-19); BLOOD UREA NITROGEN 20 mg/dL (7-20); CALCIUM 9.6 mg/dL (8.4-10.2); CARBON DIOXIDE 23 mmol/L (22-30); CHLORIDE 105 mmol/L (98-107); CREATININE RESULT 0.85 mg/dL (0.52-1.25); GLUCOSE 151 mg/dL (75-110); MAGNESIUM 1.8 mg/dL (1.6-2.3); POTASSIUM 3.6 mmol/L (3.6-5.0); SODIUM 140.3 mmol/L (137-145)
[2016-10-02] MEDS ORDERED: THROMBIN (BOVINE) TOPICAL 20000 UNIT VIAL ONE (07:30)
[2016-10-02] MEDS ORDERED: THROMBIN (BOVINE) 5000 UNIT EPITAXIS KIT ONE (07:30)
[2016-10-02] MEDS ORDERED: BUPIVACAINE INJ/PF LIPOSOME/PF 266 MG/20 ML SDV ONE (07:31)
[2016-10-02] MEDS ORDERED: MIDAZOLAM 2 MG/2 ML INJ ONE (07:33)
[2016-10-02] MEDS ORDERED: DEXMEDETOMIDINE INJ 80 MCG/20 ML VIAL IV ONE (07:33)
[2016-10-02] MEDS ORDERED: PROPOFOL INJ 200 MG/20 ML VIAL IV ONE (07:33)
[2016-10-02] MEDS ORDERED: CEFAZOLIN INJ 1 GM VIAL ONE (08:24)
[2016-10-02] MEDS ORDERED: MORPHINE SULFATE 10 MG/ML INJ IV PRN ×2 (08:59)
[2016-10-02] MEDS ORDERED: RINGERS SOLUTION,LACTATED 1,000 ML IV PRN (08:59)
[2016-10-02] MEDS ORDERED: MAG HYDROX/AL HYDROX/SIMETH SUSP 30 ML UDCUP PO PRN (08:59)
[2016-10-02] MEDS ORDERED: MORPHINE SULFATE 10 MG/ML INJ IM PRN (08:59)
[2016-10-02] MEDS ORDERED: ONDANSETRON HCL INJ/PF 4 MG/2 ML SDV IV PRN (08:59)
[2016-10-02] MEDS ORDERED: OXYCODONE HCL IR 5 MG TABLET PO PRN (08:59)
[2016-10-02] MEDS ORDERED: ONDANSETRON 4 MG TAB.RAPDIS PO PRN (08:59)
[2016-10-02] MEDS ORDERED: ACETAMINOPHEN 325 MG TABLET PO PRN (08:59)
[2016-10-02] MEDS ORDERED: ZOLPIDEM TARTRATE 5 MG TABLET PO PRN (08:59)
[2016-10-02] MEDS ORDERED: DIPHENHYDRAMINE HCL 50 MG/ML VIAL IV PRN ×2 (08:59→09:20)
[2016-10-02] MEDS ORDERED: CLOPIDOGREL BISULFATE 75 MG TABLET PO SCH (09:00)
--- NOTE | 2016-10-02 09:06 | Operative Report ---
Operative Report DATE OF SURGERY: 10/02/16 PREOPERATIVE DIAGNOSIS: Left femoral neck fracture OPERATION: Left hemiarthroplasty SURGEON: BONI TIERNEY ANESTHESIA: Spinal TISSUE REMOVED OR ALTERED: Femoral head to pathology ESTIMATED BLOOD LOSS: 25 PROCEDURE: With the patient in a right lateral decubitus position the left lower extremity hindquarter prepped and draped in a sterile fashion. A curvilinear incision made over the greater trochanter a posterior approach the hip was taken. The femur was retracted anteriorly and underlying femoral neck and head are retrieved using a corkscrew. The femoral head was measured and noted to be 46 millimeters. Attention is now turned to the femur. Access is gained to the femoral canal using a box osteotome to the piriformis fossa. The femur is then prepared using a series of tapered broaches until a number 5 broach is seated. A trial reduction was now performed using a 46 head and standard neck. Leg length was restored and there is excellent anterior posterior stability. A decision was made to proceed with this construct. All trial implants were removed. The final number 5 femoral stem is impacted into the canal. The standard neck is impacted onto the trunnion. Final unipolar head 46 millimeters is impacted onto the neck. The hip was reduced. The wound is copiously irrigated with pulsed lavage. A subsequent closed in layers using Vicryl and rubina. A sterile dressing is applied. The patient was returned to the recovery room in satisfactory condition. Implants used [place] accolade 2 #5 stem 46 mm unipolar head Standard neck
[2016-10-02] MEDS ORDERED: FENTANYL CITRATE INJ/PF 100 MCG/2 ML AMPUL IV PRN ×2 (09:20)
[2016-10-02] MEDS ORDERED: MEPERIDINE HCL/PF INJ 25 MG/1 ML DISP.SYRIN IV PRN (09:20)
[2016-10-02] MEDS ORDERED: TRANEXAMIC ACID INJ/PF 1,000 MG/10 ML SDV IV ONE (09:43)
[2016-10-02] MEDS ORDERED: ISOSORBIDE DINITRATE 60 MG PO SCH (10:00)
[2016-10-02] MEDS ORDERED: RANITIDINE HCL 75 MG PO SCH (10:00)
[2016-10-02] MEDS: MEMANTINE HCL 10 MG TABLET PO SCH ×2 (10:51→17:00)
[2016-10-02] MEDS: METOPROLOL TARTRATE 25 MG TABLET PO SCH ×2 (10:51→21:32)
[2016-10-02] MEDS: CHOLECALCIFEROL (D3) 1,000 UNIT TABLET PO SCH (10:51)
[2016-10-02] MEDS: MORPHINE SULFATE 10 MG/ML INJ IV PRN ×2 (13:03→23:23)
[2016-10-02] MEDS: GLIPIZIDE XL 5 MG TAB.ER.24 PO SCH (13:04)
[2016-10-02] MEDS: CLOPIDOGREL BISULFATE 75 MG TABLET PO SCH (13:04)
--- NOTE | 2016-10-02 13:36 | PDOC PROGRESS REPORT ---
Subjective Progress Note for:: 10/02/16 Subjective:: The patient was seen earlier today on rounds. The patient surrounded by her family. The patient is returned from the OR. Patient is unable to provide any history at this time. Patient is still groggy from anesthesia. Physical Exam Vital Signs: Temp Pulse Resp BP Pulse Ox 98.1 F 62 18 155/59 H 100 10/02/16 12:20 10/02/16 12:20 10/02/16 12:20 10/02/16 12:20 10/02/16 12:20 Intake & Output 09/30/16 10/01/16 10/02/16 23:59 23:59 23:59 Intake Total 1000 3000 Output Total 400 2325 Balance 600 675 Weight 52.3 kg neral appearance: PRESENT: no acute distress, thin Exam: Frail-appearing, postoperative Head exam: PRESENT: atraumatic, normocephalic Eye exam: PRESENT: conjunctiva pink, EOMI, PERRLA. ABSENT: scleral icterus Ear exam: PRESENT: normal external ear exam Mouth exam: PRESENT: moist, tongue midline Neck exam: ABSENT: carotid bruit, JVD, lymphadenopathy, thyromegaly, tracheal deviation Respiratory exam: PRESENT: clear to auscultation george, symmetrical, unlabored, other - Tenderness noted on both lateral chest estes.. ABSENT: rales, rhonchi, tachypnea, wheezes Cardiovascular exam: PRESENT: RRR. ABSENT: diastolic murmur, rubs, systolic murmur Pulses: PRESENT: normal dorsalis pedis pul Vascular exam: PRESENT: pallor GI/Abdominal exam: PRESENT: normal bowel sounds, soft. ABSENT: distended, guarding, mass, organolmegaly, rebound, tenderness Rectal exam: PRESENT: deferred Extremities exam: PRESENT: full ROM. ABSENT: calf tenderness, clubbing, pedal edema Neurological exam: PRESENT: Groggy. ABSENT: motor sensory deficit, normal gait Psychiatric exam: PRESENT: flat affect Skin exam: PRESENT: dry, intact, pallor, warm. ABSENT: cyanosis, rash Results Laboratory Results: 10/02/16 04:21 10/02/16 04:21 10/02/16 10/02/16 04:21 04:21 WBC 12.3 H RBC 3.55 L Hgb 10.3 L Hct 30.7 L MCV 86 MCH 29.1 MCHC 33.6 RDW 12.7 Plt Count 320 Sodium 140.3 Potassium 3.6 Chloride 105 Carbon Dioxide 23 Anion Gap 12 BUN 20 Creatinine 0.85 Est GFR ( Amer) > 60 Est GFR (Non-Af Amer) > 60 Glucose 151 H Calcium 9.6 Magnesium 1.8 Impressions: Cervical Spine CT 10/01/16 00:00 IMPRESSION: No acute findings. Chest CT 10/01/16 00:00 IMPRESSION: Mildly displaced left 2nd, 3rd, 4th, and 5th rib fractures. Chest X-Ray 10/01/16 00:00 IMPRESSION: No acute cardiopulmonary findings. Head CT 10/01/16 00:00 IMPRESSION: NORMAL BRAIN CT WITHOUT CONTRAST. Hip X-Ray 10/01/16 00:00 IMPRESSION: Impaction deformity/fracture of the left femoral neck. Lumbar Spine X-Ray 10/01/16 00:00 IMPRESSION: No acute findings. Pelvis X-Ray 10/02/16 09:01 IMPRESSION: SATISFACTORY POSTOPERATIVE PELVIS. Assessment & Plan - Diagnosis (1) Urinary tract infection Qualifiers: Urinary tract infection type: site unspecified Is this a current diagnosis for this admission?: YesPlan: Will continue antibiotic coverage and await culture and sensitivity. (2) Closed left hip fracture Qualifiers: Encounter type: initial encounter Qualified Code(s): S72.002A - Fracture of unspecified part of neck of left femur, initial encounter for closed fracture Is this a current diagnosis for this admission?: YesPlan: Postop. Do appreciate Dr. Felipe's input with this. (3) Multiple fractures of ribs of left side Qualifiers: Encounter type: initial encounter Fracture type: closed Qualified Code(s): S22.42XA - Multiple fractures of ribs, left side, initial encounter for closed fracture Is this a current diagnosis for this admission?: YesPlan: Do appreciate surgical's input with this. Will encourage incentive spirometry. (4) CAD (coronary artery disease) Qualifiers: Coronary Disease-Associated Artery/Lesion type: [place] artery [place] vs. transplanted heart: [place] heart Associated angina: without angina Qualified Code(s): I25.10 - Atherosclerotic heart disease of [place] coronary artery without angina pectoris Is this a current diagnosis for this admission?: YesPlan: Will hold Plavix for the patient had OR. (5) Dementia Qualifiers: Dementia type: unspecified type Dementia behavioral disturbance: with behavioral disturbance Qualified Code(s): F03.91 - Unspecified dementia with behavioral disturbance; F10.97 - Alcohol use, unspecified with alcohol- induced persisting dementia Is this a current diagnosis for this admission?: Yes (6) Diabetes mellitus type 2 in nonobese Is this a current diagnosis for this admission?: YesPlan: Will continue sliding scale coverage (7) Hyperlipidemia Qualifiers: Hyperlipidemia type: unspecified Qualified Code(s): E78.5 - Hyperlipidemia, unspecified Is this a current diagnosis for this admission?: YesPlan: Will hold statin given the patient's recent fall. (8) Hypothyroid Qualifiers: Hypothyroidism type: unspecified Qualified Code(s): E03.9 - Hypothyroidism, unspecified Is this a current diagnosis for this admission?: YesPlan: TSH is low T4 is high will hold levothyroxine - Time Time Spent with patient: 25-34 minutes Medications reviewed and adjusted accordingly: Yes Anticipated discharge: SNF Within: when bed available Disposition: The patient is a DO NOT RESUSCITATE DO NOT INTUBATE. Pending patient's symptomatology and diagnostic findings will reevaluate as needed.
[2016-10-02] MEDS: IBUPROFEN 800 MG in NORMAL SALINE 250 ML IV SCH ×2 (13:54→21:32)
[2016-10-02] MEDS ORDERED: ISOSORBIDE DINITRATE 20 MG TABLET PO ONE (15:30)
--- NOTE | 2016-10-02 16:49 | PDOC PROGRESS REPORT ---
Subjective Progress Note for:: 10/02/16 Physical Exam Vital Signs: Temp Pulse Resp BP Pulse Ox 97.5 F 94 18 159/73 H 95 10/02/16 14:20 10/02/16 14:20 10/02/16 14:20 10/02/16 14:20 10/02/16 14:20 Intake & Output 10/01/16 10/02/16 10/03/16 06:59 06:59 06:59 Intake Total 1000 3000 Output Total 625 2100 Balance 375 900 Weight 52.3 kg Results Laboratory Results: 10/02/16 04:21 10/02/16 04:21 10/02/16 10/02/16 04:21 04:21 WBC 12.3 H RBC 3.55 L Hgb 10.3 L Hct 30.7 L MCV 86 MCH 29.1 MCHC 33.6 RDW 12.7 Plt Count 320 Sodium 140.3 Potassium 3.6 Chloride 105 Carbon Dioxide 23 Anion Gap 12 BUN 20 Creatinine 0.85 Est GFR ( Amer) > 60 Est GFR (Non-Af Amer) > 60 Glucose 151 H Calcium 9.6 Magnesium 1.8 Impressions: Cervical Spine CT 10/01/16 00:00 IMPRESSION: No acute findings. Chest CT 10/01/16 00:00 IMPRESSION: Mildly displaced left 2nd, 3rd, 4th, and 5th rib fractures. Chest X-Ray 10/01/16 00:00 IMPRESSION: No acute cardiopulmonary findings. Head CT 10/01/16 00:00 IMPRESSION: NORMAL BRAIN CT WITHOUT CONTRAST. Hip X-Ray 10/01/16 00:00 IMPRESSION: Impaction deformity/fracture of the left femoral neck. Lumbar Spine X-Ray 10/01/16 00:00 IMPRESSION: No acute findings. Pelvis X-Ray 10/02/16 09:01 IMPRESSION: SATISFACTORY POSTOPERATIVE PELVIS. Assessment & Plan - Plan Summary Plan Summary: fALL WITH RIB FRACTURES No pulmonary injury Conservative management Will follow in Surgery clinic as out patient
[2016-10-02] MEDS: SENNOSIDES/DOCUSATE 8.6-50 MG 1 EACH TABLET PO SCH (17:00)
[2016-10-02] MEDS: FAMOTIDINE 20 MG TABLET PO SCH (17:00)
[2016-10-02] MEDS ORDERED: VANCOMYCIN HCL 1,000 MG in DEXTROSE 5%-WATER 250 ML IV ONE (21:00)
[2016-10-02] MEDS: QUETIAPINE FUMARATE 25 MG TABLET PO SCH (21:32)
[2016-10-02] MEDS: ATORVASTATIN CALCIUM 40 MG TABLET PO SCH (21:32)
[2016-10-02] MEDS: INSULIN LISPRO 100 UNIT/ML 3 ML VIAL SUBCUT PRN (23:23)
[2016-10-03 04:44] LABS: HEMATOCRIT 25.5 % (36.0-47.0); HEMOGLOBIN 8.8 g/dL (12.0-15.5); HGB HCT DIFFERENCE 0.9; MEAN CORPUSCULAR HEMOGLOBIN 29.3 pg (27.0-33.4); MEAN CORPUSCULAR HGB CONC 34.4 g/dL (32.0-36.0); MEAN CORPUSCULAR VOLUME 85 fl (80-97); RED BLOOD COUNT 2.99 10^6/uL (3.72-5.28); RED CELL DISTRIBUTION WIDTH 12.8 % (11.5-14.0); WHITE BLOOD COUNT 10.5 10^3/uL (4.0-10.5)
[2016-10-03 04:59] LABS: ANION GAP 9 (5-19); BLOOD UREA NITROGEN 23 mg/dL (7-20); CALCIUM 9.1 mg/dL (8.4-10.2); CARBON DIOXIDE 24 mmol/L (22-30); CHLORIDE 107 mmol/L (98-107); CREATININE RESULT 0.97 mg/dL (0.52-1.25); GLUCOSE 107 mg/dL (75-110); POTASSIUM 3.7 mmol/L (3.6-5.0); SODIUM 140.4 mmol/L (137-145)
[2016-10-03] MEDS: IBUPROFEN 800 MG in NORMAL SALINE 250 ML IV SCH ×3 (05:11→21:23)
[2016-10-03] MEDS: FAMOTIDINE 20 MG TABLET PO SCH ×2 (05:12→18:19)
[2016-10-03] MEDS ORDERED: MULTIVITAMIN TABLET PO SCH (10:00)
[2016-10-03] MEDS: METOPROLOL TARTRATE 25 MG TABLET PO SCH ×2 (12:21→21:23)
[2016-10-03] MEDS: CHOLECALCIFEROL (D3) 1,000 UNIT TABLET PO SCH (12:21)
[2016-10-03] MEDS: MEMANTINE HCL 10 MG TABLET PO SCH ×2 (12:21→18:19)
[2016-10-03] MEDS: ISOSORBIDE DINITRATE 20 MG TABLET PO SCH (12:22)
[2016-10-03] MEDS: SENNOSIDES/DOCUSATE 8.6-50 MG 1 EACH TABLET PO SCH ×2 (12:22→18:19)
[2016-10-03] MEDS: PRENATAL VITAMIN W-O CA NO5/FE FUMARATE/FA CAPSULE PO SCH (12:22)
[2016-10-03] MEDS: GLIPIZIDE XL 5 MG TAB.ER.24 PO SCH (12:23)
--- NOTE | 2016-10-03 12:23 | PDOC PROGRESS REPORT ---
Subjective Progress Note for:: 10/03/16 Subjective:: The patient was seen earlier today on rounds. Patient's is at bedside and active in the patient's care. Also spoke with the patient's son who is at the bedside. Patient has been quite restless and confused. Constantly fidgeting. Will deny pain. There've been no reported episodes of vomiting nor diarrhea. Brief history: The patient who has a past medical history of dementia presented to the emergency department after sustaining a fall at home. The patient was found to have left femoral neck fracture as well as numerous left-sided rib fractures. The patient seen and evaluated by both orthopedics and surgery. The patient underwent ORIF on 10/02/[address] Felipe. The patient's postoperative course has been complicated by sundowning and delirium. Initially the patient had responded nicely to Seroquel however she still remains quite active and fidgety. Unfortunately the patient has numerous allergies including which benzodiazepines. Physical Exam Vital Signs: Temp Pulse Resp BP Pulse Ox 97.7 F 73 14 138/57 H 95 10/03/16 07:43 10/03/16 07:43 10/03/16 07:43 10/03/16 07:43 10/03/16 07:43 Intake & Output 10/01/16 10/02/16 10/03/16 23:59 23:59 23:59 Intake Total 1000 4210 500 Output Total 400 2475 500 Balance 600 1735 0 Weight 52.3 kg General appearance: PRESENT: no acute distress, thin Exam: Frail-appearing, persistently fidgeting. Head exam: PRESENT: atraumatic, normocephalic Eye exam: PRESENT: conjunctiva pink, EOMI, PERRLA. ABSENT: scleral icterus Ear exam: PRESENT: normal external ear exam Mouth exam: PRESENT: moist, tongue midline Neck exam: ABSENT: carotid bruit, JVD, lymphadenopathy, thyromegaly, tracheal deviation Respiratory exam: PRESENT: clear to auscultation george, symmetrical, unlabored, other - Tenderness noted on both lateral chest estes.. ABSENT: rales, rhonchi, tachypnea, wheezes Cardiovascular exam: PRESENT: RRR. ABSENT: diastolic murmur, rubs, systolic murmur Pulses: PRESENT: normal dorsalis pedis pul Vascular exam: PRESENT: pallor GI/Abdominal exam: PRESENT: normal bowel sounds, soft. ABSENT: distended, guarding, mass, organolmegaly, rebound, tenderness Rectal exam: PRESENT: deferred Extremities exam: PRESENT: full ROM. ABSENT: calf tenderness, clubbing, pedal edema Neurological exam: PRESENT: Awake and alert recognizes her family. ABSENT: motor sensory deficit, normal gait Psychiatric exam: PRESENT: flat affect Skin exam: PRESENT: dry, intact, pallor, warm. ABSENT: cyanosis, rash Results Laboratory Results: 10/03/16 04:36 10/03/16 04:36 10/03/16 10/03/16 04:36 04:36 WBC 10.5 RBC 2.99 L Hgb 8.8 L Hct 25.5 L MCV 85 MCH 29.3 MCHC 34.4 RDW 12.8 Plt Count 278 Sodium 140.4 Potassium 3.7 Chloride 107 Carbon Dioxide 24 Anion Gap 9 BUN 23 H Creatinine 0.97 Est GFR ( Amer) > 60 Est GFR (Non-Af Amer) 55 L Glucose 107 Calcium 9.1 Impressions: Cervical Spine CT 10/01/16 00:00 IMPRESSION: No acute findings. Chest CT 10/01/16 00:00 IMPRESSION: Mildly displaced left 2nd, 3rd, 4th, and 5th rib fractures. Chest X-Ray 10/01/16 00:00 IMPRESSION: No acute cardiopulmonary findings. Head CT 10/01/16 00:00 IMPRESSION: NORMAL BRAIN CT WITHOUT CONTRAST. Hip X-Ray 10/01/16 00:00 IMPRESSION: Impaction deformity/fracture of the left femoral neck. Lumbar Spine X-Ray 10/01/16 00:00 IMPRESSION: No acute findings. Pelvis X-Ray 10/02/16 09:01 IMPRESSION: SATISFACTORY POSTOPERATIVE PELVIS. Assessment & Plan - Diagnosis (1) Closed left hip fracture Qualifiers: Encounter type: initial encounter Qualified Code(s): S72.002A - Fracture of unspecified part of neck of left femur, initial encounter for closed fracture Is this a current diagnosis for this admission?: YesPlan: Postop. Do appreciate Dr. Felipe's input with this. (2) Multiple fractures of ribs of left side Qualifiers: Encounter type: initial encounter Fracture type: closed Qualified Code(s): S22.42XA - Multiple fractures of ribs, left side, initial encounter for closed fracture Is this a current diagnosis for this admission?: YesPlan: Do appreciate surgical's input with this. Will encourage incentive spirometry. (3) CAD (coronary artery disease) Qualifiers: Coronary Disease-Associated Artery/Lesion type: [place] artery [place] vs. transplanted heart: [place] heart Associated angina: without angina Qualified Code(s): I25.10 - Atherosclerotic heart disease of [place] coronary artery without angina pectoris Is this a current diagnosis for this admission?: YesPlan: Resume the patient's home medications (4) Dementia Qualifiers: Dementia type: unspecified type Dementia behavioral disturbance: with behavioral disturbance Qualified Code(s): F03.91 - Unspecified dementia with behavioral disturbance; F10.97 - Alcohol use, unspecified with alcohol- induced persisting dementia Is this a current diagnosis for this admission?: Yes (5) Diabetes mellitus type 2 in nonobese Is this a current diagnosis for this admission?: YesPlan: Will continue sliding scale coverage (6) Hyperlipidemia Qualifiers: Hyperlipidemia type: unspecified Qualified Code(s): E78.5 - Hyperlipidemia, unspecified Is this a current diagnosis for this admission?: YesPlan: Will hold statin given the patient's recent fall. (7) Hypothyroid Qualifiers: Hypothyroidism type: unspecified Qualified Code(s): E03.9 - Hypothyroidism, unspecified Is this a current diagnosis for this admission?: YesPlan: TSH is low T4 is high will hold levothyroxine (8) Postoperative delirium Is this a current diagnosis for this admission?: YesPlan: Most likely compounded by the patient's dementia. He does have Benadryl when necessary. No evidence of UTI or other process. Will continue supportive care. - Time Time Spent with patient: 25-34 minutes Medications reviewed and adjusted accordingly: Yes Anticipated discharge: SNF Within: when bed available Disposition: The patient is a DO NOT RESUSCITATE DO NOT INTUBATE. Pending patient's symptomatology and diagnostic findings will reevaluate as needed.
[2016-10-03] MEDS: ATORVASTATIN CALCIUM 40 MG TABLET PO SCH (21:23)
[2016-10-03] MEDS: QUETIAPINE FUMARATE 25 MG TABLET PO SCH (21:23)
[2016-10-04] MEDS: TRAMADOL HCL 50 MG TABLET PO PRN (00:15)
[2016-10-04 05:09] LABS: ANION GAP 12 (5-19); BLOOD UREA NITROGEN 25 mg/dL (7-20); CALCIUM 8.8 mg/dL (8.4-10.2); CARBON DIOXIDE 23 mmol/L (22-30); CHLORIDE 109 mmol/L (98-107); CREATININE RESULT 1.36 mg/dL (0.52-1.25); GLUCOSE 136 mg/dL (75-110); MAGNESIUM 1.8 mg/dL (1.6-2.3); SODIUM 143.5 mmol/L (137-145)
[2016-10-04 05:10] LABS: HEMATOCRIT 22.8 % (36.0-47.0); HGB HCT DIFFERENCE 0.9; MEAN CORPUSCULAR HEMOGLOBIN 29.5 pg (27.0-33.4); MEAN CORPUSCULAR HGB CONC 34.6 g/dL (32.0-36.0); MEAN CORPUSCULAR VOLUME 85 fl (80-97); RED BLOOD COUNT 2.68 10^6/uL (3.72-5.28); RED CELL DISTRIBUTION WIDTH 12.8 % (11.5-14.0)
[2016-10-04 05:12] LABS: HEMOGLOBIN 7.9 g/dL (12.0-15.5)
[2016-10-04] MEDS ORDERED: POTASSIUM CHLORIDE 20 MEQ/15 ML UDCUP PO ONE (05:45)
[2016-10-04] MEDS: FAMOTIDINE 20 MG TABLET PO SCH ×2 (06:08→17:01)
--- NOTE | 2016-10-04 07:04 | PDOC PROGRESS REPORT ---
Subjective Progress Note for:: 10/04/16 Subjective:: Patient is disoriented Physical Exam Vital Signs: Temp Pulse Resp BP Pulse Ox 36.6 C 84 18 136/60 H 100 10/03/16 23:35 10/03/16 23:35 10/03/16 23:35 10/03/16 23:35 10/03/16 23:35 Intake & Output 10/03/16 10/04/16 10/05/16 06:59 06:59 06:59 Intake Total 4710 2896 Output Total 2750 300 Balance 1960 2596 General appearance: PRESENT: no acute distress Head exam: PRESENT: normocephalic Pulses: PRESENT: +1 pedal pulses bilateral Rectal exam: PRESENT: deferred Extremities exam: PRESENT: other - Leg lengths are equal. Left hip dressing was changed, yesterday because the patient disrupted the suction tube. Results Laboratory Results: 10/04/16 04:11 10/04/16 04:11 10/04/16 10/04/16 04:11 04:11 WBC 10.0 RBC 2.68 L Hgb 7.9 L Hct 22.8 L MCV 85 MCH 29.5 MCHC 34.6 RDW 12.8 Plt Count 279 Sodium 143.5 Potassium 3.0 L* Chloride 109 H Carbon Dioxide 23 Anion Gap 12 BUN 25 H Creatinine 1.36 H Est GFR ( Amer) 45 L Est GFR (Non-Af Amer) 37 L Glucose 136 H Calcium 8.8 Magnesium 1.8 Impressions: Cervical Spine CT 10/01/16 00:00 IMPRESSION: No acute findings. Chest CT 10/01/16 00:00 IMPRESSION: Mildly displaced left 2nd, 3rd, 4th, and 5th rib fractures. Chest X-Ray 10/01/16 00:00 IMPRESSION: No acute cardiopulmonary findings. Head CT 10/01/16 00:00 IMPRESSION: NORMAL BRAIN CT WITHOUT CONTRAST. Hip X-Ray 10/01/16 00:00 IMPRESSION: Impaction deformity/fracture of the left femoral neck. Lumbar Spine X-Ray 10/01/16 00:00 IMPRESSION: No acute findings. Pelvis X-Ray 10/02/16 09:01 IMPRESSION: SATISFACTORY POSTOPERATIVE PELVIS. Status: Imported from PACS Assessment & Plan - Diagnosis (1) Closed left hip fracture Qualifiers: Encounter type: initial encounter Qualified Code(s): S72.002A - Fracture of unspecified part of neck of left femur, initial encounter for closed fracture Is this a current diagnosis for this admission?: YesPlan: Limited progress with physical therapy - Time Time Spent with patient: 15-24 minutes Anticipated discharge: SNF Within: Other
[2016-10-04] MEDS ORDERED: POTASSIUM CHLORIDE 10 MEQ TABLET.SA PO ONE (08:30)
--- NOTE | 2016-10-04 08:39 | PDOC PROGRESS REPORT ---
Subjective Progress Note for:: 10/04/16 Subjective:: Patient seen on morning rounds. She is presently sleeping soundly in bed. She does awaken to verbal stimuli. She is disoriented 3. There is presently no family at bedside. Review of systems is unobtainable due to patient's mentation. Nursing reports no issues overnight. Physical Exam Vital Signs: Temp Pulse Resp BP Pulse Ox 98.1 F 78 18 150/59 H 100 10/04/16 07:43 10/04/16 07:43 10/04/16 07:43 10/04/16 07:43 10/04/16 07:43 Intake & Output 10/03/16 10/04/16 10/05/16 06:59 06:59 06:59 Intake Total 4710 2896 Output Total 2750 300 Balance 1960 2596 General appearance: PRESENT: no acute distress, thin, well-developed Head exam: PRESENT: atraumatic, normocephalic Eye exam: PRESENT: conjunctiva pale, EOMI, PERRLA. ABSENT: scleral icterus Ear exam: PRESENT: normal external ear exam Mouth exam: PRESENT: moist, tongue midline Teeth exam: PRESENT: dental tenderness Neck exam: ABSENT: carotid bruit, JVD, lymphadenopathy, thyromegaly Respiratory exam: PRESENT: clear to auscultation george. ABSENT: rales, rhonchi, wheezes Cardiovascular exam: PRESENT: RRR. ABSENT: diastolic murmur, rubs, systolic murmur Pulses: PRESENT: normal dorsalis pedis pul Vascular exam: PRESENT: normal capillary refill GI/Abdominal exam: PRESENT: normal bowel sounds, soft. ABSENT: distended, guarding, mass, organolmegaly, rebound, tenderness Rectal exam: PRESENT: deferred Extremities exam: PRESENT: tenderness - left hip Musculoskeletal exam: PRESENT: normal inspection, tenderness - left hip Neurological exam: PRESENT: alert, CN II-XII grossly intact Psychiatric exam: PRESENT: flat affect Skin exam: PRESENT: dry, intact, warm. ABSENT: cyanosis, rash Results Laboratory Results: 10/04/16 04:11 10/04/16 04:11 10/04/16 10/04/16 04:11 04:11 WBC 10.0 RBC 2.68 L Hgb 7.9 L Hct 22.8 L MCV 85 MCH 29.5 MCHC 34.6 RDW 12.8 Plt Count 279 Sodium 143.5 Potassium 3.0 L* Chloride 109 H Carbon Dioxide 23 Anion Gap 12 BUN 25 H Creatinine 1.36 H Est GFR ( Amer) 45 L Est GFR (Non-Af Amer) 37 L Glucose 136 H Calcium 8.8 Magnesium 1.8 Impressions: Cervical Spine CT 10/01/16 00:00 IMPRESSION: No acute findings. Chest CT 10/01/16 00:00 IMPRESSION: Mildly displaced left 2nd, 3rd, 4th, and 5th rib fractures. Chest X-Ray 10/01/16 00:00 IMPRESSION: No acute cardiopulmonary findings. Head CT 10/01/16 00:00 IMPRESSION: NORMAL BRAIN CT WITHOUT CONTRAST. Hip X-Ray 10/01/16 00:00 IMPRESSION: Impaction deformity/fracture of the left femoral neck. Lumbar Spine X-Ray 10/01/16 00:00 IMPRESSION: No acute findings. Pelvis X-Ray 10/02/16 09:01 IMPRESSION: SATISFACTORY POSTOPERATIVE PELVIS. Assessment & Plan - Diagnosis (1) Closed left hip fracture Qualifiers: Encounter type: initial encounter Qualified Code(s): S72.002A - Fracture of unspecified part of neck of left femur, initial encounter for closed fracture Is this a current diagnosis for this admission?: YesPlan: Patient is postop day #2 ORIF of left hip fracture. Due to her confusion she's had difficulty participating in physical therapy. She will need rehabilitation placement prior to returning to assisted living environment. (2) Multiple fractures of ribs of left side Qualifiers: Encounter type: initial encounter Fracture type: closed Qualified Code(s): S22.42XA - Multiple fractures of ribs, left side, initial encounter for closed fracture Is this a current diagnosis for this admission?: YesPlan: Patient will be at risk for pneumonia due to rib fractures. She has difficulty following respiratory's instructions for incentive spirometry. Will follow with chest xray if symptoms warrant (3) Postoperative delirium Is this a current diagnosis for this admission?: YesPlan: She's not had any narcotic analgesics. Delirium is somewhat improved. (4) Diabetes mellitus type 2 in nonobese Is this a current diagnosis for this admission?: YesPlan: continue current medications and sliding scale coverage. (5) Hypokalemia Is this a current diagnosis for this admission?: YesPlan: We'll replete and monitor (6) CAD (coronary artery disease) Qualifiers: Coronary Disease-Associated Artery/Lesion type: [place] artery [place] vs. transplanted heart: [place] heart Associated angina: without angina Qualified Code(s): I25.10 - Atherosclerotic heart disease of [place] coronary artery without angina pectoris Is this a current diagnosis for this admission?: YesPlan: Continue current medications. (7) Dementia Qualifiers: Dementia type: unspecified type Dementia behavioral disturbance: with behavioral disturbance Qualified Code(s): F03.91 - Unspecified dementia with behavioral disturbance; F10.97 - Alcohol use, unspecified with alcohol- induced persisting dementia Is this a current diagnosis for this admission?: YesPlan: Chronic, worsened by anesthesia and narcotic analgesics. She will have difficulty participating in physical therapy for rehabilitation of her hip. (8) Hyperlipidemia Qualifiers: Hyperlipidemia type: unspecified Qualified Code(s): E78.5 - Hyperlipidemia, unspecified Is this a current diagnosis for this admission?: YesPlan: Continue statin (9) Hypothyroid Qualifiers: Hypothyroidism type: unspecified Qualified Code(s): E03.9 - Hypothyroidism, unspecified Is this a current diagnosis for this admission?: YesPlan: Continue Synthroid (10) Acute blood loss as cause of postoperative anemia Is this a current diagnosis for this admission?: YesPlan: Hemoglobin dropped 7.9 we'll continue to monitor. - Time Time Spent with patient: 25-34 minutes Critical Time spent with patient: 15-24 minutes Medications reviewed and adjusted accordingly: Yes Anticipated discharge: Acute Rehab Within: when bed available
[2016-10-04] MEDS: PRENATAL VITAMIN W-O CA NO5/FE FUMARATE/FA CAPSULE PO SCH (09:53)
[2016-10-04] MEDS: ISOSORBIDE DINITRATE 20 MG TABLET PO SCH (09:53)
[2016-10-04] MEDS: METOPROLOL TARTRATE 25 MG TABLET PO SCH ×2 (09:54→22:08)
[2016-10-04] MEDS: SENNOSIDES/DOCUSATE 8.6-50 MG 1 EACH TABLET PO SCH ×2 (09:56→17:01)
[2016-10-04] MEDS: CHOLECALCIFEROL (D3) 1,000 UNIT TABLET PO SCH (09:56)
[2016-10-04] MEDS: MEMANTINE HCL 10 MG TABLET PO SCH ×2 (09:56→17:01)
[2016-10-04] MEDS: CLOPIDOGREL BISULFATE 75 MG TABLET PO SCH (14:04)
[2016-10-04] MEDS: INSULIN LISPRO 100 UNIT/ML 3 ML VIAL SUBCUT PRN ×2 (16:59→22:39)
[2016-10-04] MEDS ORDERED: DIAZEPAM INJ 10 MG/2 ML DISP.SYRIN IV ONE (20:30)
[2016-10-04] MEDS: QUETIAPINE FUMARATE 25 MG TABLET PO SCH (22:08)
[2016-10-04] MEDS: ATORVASTATIN CALCIUM 40 MG TABLET PO SCH (22:08)
[2016-10-05 04:58] LABS: HEMATOCRIT 25.3 % (36.0-47.0); HEMOGLOBIN 8.7 g/dL (12.0-15.5); HGB HCT DIFFERENCE 0.8; MEAN CORPUSCULAR HEMOGLOBIN 29.3 pg (27.0-33.4); MEAN CORPUSCULAR HGB CONC 34.5 g/dL (32.0-36.0); MEAN CORPUSCULAR VOLUME 85 fl (80-97); RED BLOOD COUNT 2.97 10^6/uL (3.72-5.28); RED CELL DISTRIBUTION WIDTH 12.9 % (11.5-14.0); WHITE BLOOD COUNT 11.1 10^3/uL (4.0-10.5)
[2016-10-05 05:12] LABS: ANION GAP 13 (5-19); BLOOD UREA NITROGEN 26 mg/dL (7-20); CALCIUM 9.3 mg/dL (8.4-10.2); CARBON DIOXIDE 22 mmol/L (22-30); CHLORIDE 110 mmol/L (98-107); CREATININE RESULT 1.37 mg/dL (0.52-1.25); GLUCOSE 168 mg/dL (75-110); POTASSIUM 3.5 mmol/L (3.6-5.0); SODIUM 144.9 mmol/L (137-145)
[2016-10-05] MEDS: FAMOTIDINE 20 MG TABLET PO SCH ×2 (06:00→17:38)
[2016-10-05] MEDS ORDERED: DIAZEPAM INJ 10 MG/2 ML DISP.SYRIN IV PRN (09:20)
--- NOTE | 2016-10-05 09:24 | PDOC PROGRESS REPORT ---
Subjective Progress Note for:: 10/05/16 Subjective:: Patient seen on morning rounds. She is presently sleeping soundly in bed. She does awaken to verbal stimuli. She is disoriented 3. There is presently no family at bedside. Review of systems is unobtainable due to patient's mentation. Nursing reports period of increased agitation overnight Physical Exam Vital Signs: Temp Pulse Resp BP Pulse Ox 98.0 F 92 20 152/76 H 97 10/05/16 07:54 10/05/16 07:54 10/05/16 07:54 10/05/16 07:54 10/05/16 07:54 Intake & Output 10/04/16 10/05/16 10/06/16 06:59 06:59 06:59 Intake Total 2896 410 Output Total 300 Balance 2596 410 General appearance: PRESENT: no acute distress, thin, well-developed Head exam: PRESENT: atraumatic, normocephalic Eye exam: PRESENT: conjunctiva pink, EOMI, PERRLA. ABSENT: scleral icterus Ear exam: PRESENT: normal external ear exam Mouth exam: PRESENT: moist, tongue midline Neck exam: ABSENT: carotid bruit, JVD, lymphadenopathy, thyromegaly Respiratory exam: PRESENT: clear to auscultation george. ABSENT: rales, rhonchi, wheezes Cardiovascular exam: PRESENT: RRR. ABSENT: diastolic murmur, rubs, systolic murmur Pulses: PRESENT: normal dorsalis pedis pul Vascular exam: PRESENT: normal capillary refill GI/Abdominal exam: PRESENT: normal bowel sounds, soft. ABSENT: distended, guarding, mass, organolmegaly, rebound, tenderness Rectal exam: PRESENT: deferred Extremities exam: PRESENT: tenderness - left hip Musculoskeletal exam: PRESENT: full ROM, normal inspection, tenderness Neurological exam: PRESENT: alert, altered, CN II-XII grossly intact Psychiatric exam: PRESENT: agitated, flat affect Skin exam: PRESENT: dry, intact, warm. ABSENT: cyanosis, rash Results Laboratory Results: 10/05/16 04:32 10/05/16 04:32 10/05/16 10/05/16 04:32 04:32 WBC 11.1 H RBC 2.97 L Hgb 8.7 L Hct 25.3 L MCV 85 MCH 29.3 MCHC 34.5 RDW 12.9 Plt Count 389 Sodium 144.9 Potassium 3.5 L Chloride 110 H Carbon Dioxide 22 Anion Gap 13 BUN 26 H Creatinine 1.37 H Est GFR ( Amer) 44 L Est GFR (Non-Af Amer) 37 L Glucose 168 H Calcium 9.3 Impressions: Cervical Spine CT 10/01/16 00:00 IMPRESSION: No acute findings. Chest CT 10/01/16 00:00 IMPRESSION: Mildly displaced left 2nd, 3rd, 4th, and 5th rib fractures. Chest X-Ray 10/01/16 00:00 IMPRESSION: No acute cardiopulmonary findings. Head CT 10/01/16 00:00 IMPRESSION: NORMAL BRAIN CT WITHOUT CONTRAST. Hip X-Ray 10/01/16 00:00 IMPRESSION: Impaction deformity/fracture of the left femoral neck. Lumbar Spine X-Ray 10/01/16 00:00 IMPRESSION: No acute findings. Pelvis X-Ray 10/02/16 09:01 IMPRESSION: SATISFACTORY POSTOPERATIVE PELVIS. Assessment & Plan - Diagnosis (1) Closed left hip fracture Qualifiers: Encounter type: initial encounter Qualified Code(s): S72.002A - Fracture of unspecified part of neck of left femur, initial encounter for closed fracture Is this a current diagnosis for this admission?: YesPlan: Patient is postop day #2 ORIF of left hip fracture. Due to her confusion she's had difficulty participating in physical therapy. She will need rehabilitation placement prior to returning to assisted living environment. (2) Multiple fractures of ribs of left side Qualifiers: Encounter type: initial encounter Fracture type: closed Qualified Code(s): S22.42XA - Multiple fractures of ribs, left side, initial encounter for closed fracture Is this a current diagnosis for this admission?: YesPlan: Patient will be at risk for pneumonia due to rib fractures. She has difficulty following respiratory's instructions for incentive spirometry. Will follow with chest xray if symptoms warrant (3) Postoperative delirium Is this a current diagnosis for this admission?: YesPlan: She's not had any narcotic analgesics. Delirium is somewhat improved. (4) Diabetes mellitus type 2 in nonobese Is this a current diagnosis for this admission?: YesPlan: continue current medications and sliding scale coverage. (5) Hypokalemia Is this a current diagnosis for this admission?: YesPlan: We'll replete and monitor (6) CAD (coronary artery disease) Qualifiers: Coronary Disease-Associated Artery/Lesion type: [place] artery [place] vs. transplanted heart: [place] heart Associated angina: without angina Qualified Code(s): I25.10 - Atherosclerotic heart disease of [place] coronary artery without angina pectoris Is this a current diagnosis for this admission?: YesPlan: Continue current medications. (7) Dementia Qualifiers: Dementia type: unspecified type Dementia behavioral disturbance: with behavioral disturbance Qualified Code(s): F03.91 - Unspecified dementia with behavioral disturbance; F10.97 - Alcohol use, unspecified with alcohol- induced persisting dementia Is this a current diagnosis for this admission?: YesPlan: Chronic, worsened by anesthesia and narcotic analgesics. She will have difficulty participating in physical therapy for rehabilitation of her hip. (8) Hyperlipidemia Qualifiers: Hyperlipidemia type: unspecified Qualified Code(s): E78.5 - Hyperlipidemia, unspecified Is this a current diagnosis for this admission?: YesPlan: Continue statin (9) Hypothyroid Qualifiers: Hypothyroidism type: unspecified Qualified Code(s): E03.9 - Hypothyroidism, unspecified Is this a current diagnosis for this admission?: YesPlan: Continue Synthroid (10) Acute blood loss as cause of postoperative anemia Is this a current diagnosis for this admission?: YesPlan: Hemoglobin dropped 7.9 we'll continue to monitor. - Time Time Spent with patient: 25-34 minutes Critical Time spent with patient: 15-24 minutes Medications reviewed and adjusted accordingly: Yes Within: when bed available
--- NOTE | 2016-10-05 10:41 | PDOC TRANSFER SUMMARY ---
General - Admit/Disc Date/PCP Admission Date/Primary Care Provider: 10/01/16 07:39 SORAIDA ALANIZ MD Discharge Date: 10/05/16 - Discharge Diagnosis (1) Closed left hip fracture Is this a current diagnosis for this admission?: YesSummary: Continue physical therapy. Follow up in 10 days with orthopedics (2) Multiple fractures of ribs of left side Is this a current diagnosis for this admission?: Yes (3) Postoperative delirium Is this a current diagnosis for this admission?: YesSummary: Improved, Underlying dementia (4) Diabetes mellitus type 2 in nonobese Is this a current diagnosis for this admission?: YesSummary: Continue currrent medications and sliding scale coverage (5) Hypokalemia Is this a current diagnosis for this admission?: YesSummary: Repleted (6) CAD (coronary artery disease) Is this a current diagnosis for this admission?: Yes (7) Dementia Is this a current diagnosis for this admission?: YesSummary: Risperadol two times daily (8) Hyperlipidemia Is this a current diagnosis for this admission?: Yes (9) Hypothyroid Is this a current diagnosis for this admission?: YesSummary: Continue levoxyl (10) Acute blood loss as cause of postoperative anemia Is this a current diagnosis for this admission?: YesSummary: Stable - Additional Information Resuscitation Status: Do Not Resuscitate Discharge Diet: Cardiac Discharge Activity: Activity As Tolerated Home Medications: Atorvastatin Calcium [Lipitor 40 mg Tablet] 40 mg PO QHS 05/21/13 Clopidogrel Bisulfate [Plavix 75 mg Tablet] 75 mg PO Q2D 05/21/13 Folic Acid/Multivit-Min/Lutein [Centrum Silver Chewable Tablet] 1 each PO DAILY 05/21/13 Isosorbide Dinitrate 60 mg PO DAILY 05/21/13 Levothyroxine Sodium 150 mcg PO DAILY 05/21/13 Memantine HCl [Namenda 10 mg Tablet] 10 mg PO BID 05/21/13 Cholecalciferol (Vitamin D3) [Vitamin D3] 1,000 unit PO DAILY 04/02/15 Metoprolol Tartrate [Lopressor 25 mg Tablet] 12.5 mg PO BID 04/02/15 Valsartan/Hydrochlorothiazide [Diovan Hct 160-12.5 mg Tab] 1 each PO DAILY 04/02 Ranitidine HCl [Zantac 75 mg Tablet] 75 mg PO BID #20 tablet 01/28/16 Glipizide [Glipizide ER] 5 mg PO DAILY 10/01/16 Ranitidine HCl [Zantac 75 mg Tablet] 75 mg PO BID 10/01/16 Tramadol HCl [Ultram 50 mg Tablet] 50 mg PO QID 10/01/16 History of Present Illness Admission Date/PCP: 10/01/16 07:39 SORAIDA ALANIZ MD Patient complains of: Fall with left sided pain History of Present Illness: MINESH TROTTER is a 86 year old Caucasion female with underlying severe dementia, Along with hypertension, hypothyroidism, mrf-cuxzjrs-orqerbalu diabetes mellitus, hyperlipidemia, and known coronary artery disease, status post stent implant, who presents to the emergency room for evaluation of above complaints. Patient has been discussed with emergency room physician who evaluated the patient. Patient is somnolent and is able to provide no history whatsoever in terms of acute or chronic events, review of systems, personal habits, family history, etc. Rafa is present at her side, and while somewhat informative, is not the best historian himself. Old inpatient records are reviewed. While walking in her kitchen, she tripped over the foot of her kitchen table, landing on her left side. Struck her head, but did not lose consciousness. Oxygen saturation of 85% upon EMS arrival, with increase in 96% on 4 L oxygen per nasal cannula. Normally not on home oxygen, according to . Prior to the above events, she was in her usual state of health, with no nausea vomiting, fever chills, headache chest or abdominal pain. Patient was quite agitated upon initial ER arrival, but now is sleeping quietly. No further information available this point in time. . Prior to my being called, emergency room physician did speak with on-call orthopedics and general surgery, who have agreed to see the patient in consultation. Laboratory results are listed in [employer] and are reviewed. X-ray summary results are listed below, with full report(s) reviewed. . EKG reviewed. And compared to a prior tracing from January 27 of last year. Social history/personal habits: Subsequent information is obtained from history and physical exam from 04/01/2015, when she was admitted for chest pain. Document is reviewed. . 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 Allergies/adverse reactions are listed in [employer] and are reviewed. Home medications Home medications initially autopopulated into [employer] may not accurately reflect patient's true medications, dosages, and/or frequencies. train control technician to reconcile medications. Unfortunately, patient not able to provide any information related to her medications/dosages/frequencies. REVIEW OF SYSTEMS: See history and present illness.No further information available this point in time. PHYSICAL EXAMINATION: 5 feet 8 inches tall. 53.3 kg. 17.9 kg/m BMI. Blood pressure 169/79. Pulse 79 and regular. 93% saturation on room air. Respirations are 17 and unlabored. Patient maintaining her airway nicely. Thin frail elderly female appearing approximately her stated age. Asleep. Does not respond to name. Maintaining airway well. is present at her side. Skin is warm and dry. No grossly obvious evidence of rash in areas of skin examined. No subcutaneous nodules palpated. ENT: Hearing can't be adequately evaluated due to her current status. No Gonzalez sign. Eyes: No scleral icterus. Pupils equal and reactive to light at 4 mm. Renfrow conjunctivae. No raccoon eyes. Neck is nontender to palpation. Midline trachea. No palpable thyroid nodule mass enlargement or tenderness. Lymphatic: No palpable cervical or clavicular nodes. Neck and lymphatic exams limited by patient body habitus. Psychiatric: Not able to be adequately evaluated due to her current status. See History and Present Illness. Lungs: Auscultation reveals clear and equal breath sounds bilaterally. No use of accessory respiratory muscles. Cardiovascular: Heart regular rate and rhythm, without gallop murmur or rub. No carotid or abdominal aortic bruits. No ankle or pedal edema. palpable dorsalis pedis pulses. Abdomen: soft, , slightly distended nontender with positive bowel sounds. Unable to adequately evaluate abdomen for masses or organomegaly due to her distention. Extremities: Feet are warm and dry. No calf tenderness to compression. No grossly obvious visual evidence of calf swelling. Gentle manipulation of right lower extremity fails to reveal any obvious evidence of injury or instability to knee hip or ankle. Left lower extremity slightly shorter than right; no manipulation, deu to her injury. Neurologic: Right Patellar reflex absent; not checked on left due to her injury. Absent right Babinski; not checked on left due to her injury. Light touch can't be adequately evaluated due to her current status.. Hospital Course Hospital Course: Patient was admitted to telemetry floor. Orthopedics was consulted, Dr Felipe saw the patient in consult. The patient was medically cleared for surgery and was taken for an ORIF of the left hip on 10/02/[address] Felipe. The patient has underlying dementia which was exacerbated by anesthesia and pain medication. She had increased delirium overnight. Patient was found to have mildly displaced left 2nd, 3rd, 4th and 5th rib fractures. General surgery was consulted. Dr Sapp, saw the patient in consult. The patient had no pulmonary contusions or injury. Physical therapy was consulted post operatively. Patient has had difficulty participating in treatment due to dementia. She had mild drop in hemoglobin post operatively. She did not require transfusion. Physical Exam Vital Signs: Temp Pulse Resp BP Pulse Ox 98.0 F 92 20 152/76 H 97 10/05/16 07:54 10/05/16 07:54 10/05/16 07:54 10/05/16 07:54 10/05/16 07:54 Intake & Output 10/04/16 10/05/16 10/06/16 06:59 06:59 06:59 Intake Total 2896 410 Output Total 300 Balance 2596 410 General appearance: PRESENT: no acute distress, thin, well-developed Head exam: PRESENT: atraumatic, normocephalic Eye exam: PRESENT: conjunctiva pink, EOMI, PERRLA. ABSENT: scleral icterus Ear exam: PRESENT: normal external ear exam Mouth exam: PRESENT: moist, tongue midline Neck exam: ABSENT: carotid bruit, JVD, lymphadenopathy, thyromegaly Respiratory exam: PRESENT: clear to auscultation george, decreased breath sounds. ABSENT: rales, rhonchi, wheezes Cardiovascular exam: PRESENT: RRR. ABSENT: diastolic murmur, rubs, systolic murmur Pulses: PRESENT: normal dorsalis pedis pul Vascular exam: PRESENT: normal capillary refill GI/Abdominal exam: PRESENT: normal bowel sounds, soft. ABSENT: distended, guarding, mass, organolmegaly, rebound, tenderness Rectal exam: PRESENT: deferred Extremities exam: PRESENT: full ROM. ABSENT: calf tenderness, clubbing, pedal edema Neurological exam: PRESENT: alert, altered Psychiatric exam: PRESENT: agitated, flat affect Skin exam: PRESENT: dry, intact, warm. ABSENT: cyanosis, rash Results Laboratory Results: 10/05/16 04:32 10/05/16 04:32 10/05/16 10/05/16 04:32 04:32 WBC 11.1 H RBC 2.97 L Hgb 8.7 L Hct 25.3 L MCV 85 MCH 29.3 MCHC 34.5 RDW 12.9 Plt Count 389 Sodium 144.9 Potassium 3.5 L Chloride 110 H Carbon Dioxide 22 Anion Gap 13 BUN 26 H Creatinine 1.37 H Est GFR ( Amer) 44 L Est GFR (Non-Af Amer) 37 L Glucose 168 H Calcium 9.3 Impressions: Cervical Spine CT 10/01/16 00:00 IMPRESSION: No acute findings. Chest CT 10/01/16 00:00 IMPRESSION: Mildly displaced left 2nd, 3rd, 4th, and 5th rib fractures. Chest X-Ray 10/01/16 00:00 IMPRESSION: No acute cardiopulmonary findings. Head CT 10/01/16 00:00 IMPRESSION: NORMAL BRAIN CT WITHOUT CONTRAST. Hip X-Ray 10/01/16 00:00 IMPRESSION: Impaction deformity/fracture of the left femoral neck. Lumbar Spine X-Ray 10/01/16 00:00 IMPRESSION: No acute findings. Pelvis X-Ray 10/02/16 09:01 IMPRESSION: SATISFACTORY POSTOPERATIVE PELVIS. Transfer Plan - Disposition Transfer Plan: Transfer to [facility] - Time Spent with Patient Time spent with patient: Less than 30 Minutes Qualifiers PATEINT BEING DISCHARGED WITH ANY OF THE FOLLOWING DIAGNOSIS?: No
[2016-10-05] MEDS: METOPROLOL TARTRATE 25 MG TABLET PO SCH ×2 (10:59→23:04)
[2016-10-05] MEDS: ISOSORBIDE DINITRATE 20 MG TABLET PO SCH (10:59)
[2016-10-05] MEDS: RISPERIDONE 1 MG TABLET PO SCH ×2 (10:59→17:39)
[2016-10-05] MEDS: MEMANTINE HCL 10 MG TABLET PO SCH ×2 (10:59→17:38)
[2016-10-05] MEDS: SENNOSIDES/DOCUSATE 8.6-50 MG 1 EACH TABLET PO SCH ×2 (10:59→17:39)
[2016-10-05] MEDS: CHOLECALCIFEROL (D3) 1,000 UNIT TABLET PO SCH (10:59)
[2016-10-05] MEDS: PRENATAL VITAMIN W-O CA NO5/FE FUMARATE/FA CAPSULE PO SCH (11:00)
[2016-10-05] MEDS: TRAMADOL HCL 50 MG TABLET PO PRN (13:41)
[2016-10-05] MEDS: ATORVASTATIN CALCIUM 40 MG TABLET PO SCH (23:05)
[2016-10-05] MEDS: QUETIAPINE FUMARATE 25 MG TABLET PO SCH (23:05)
[2016-10-06] MEDS: TRAMADOL HCL 50 MG TABLET PO PRN ×2 (00:31→17:40)
[2016-10-06] MEDS: FAMOTIDINE 20 MG TABLET PO SCH ×2 (05:09→17:41)
--- NOTE | 2016-10-06 08:24 | PDOC PROGRESS REPORT ---
Subjective Progress Note for:: 10/05/16 Subjective:: Patient seen on morning rounds. She is presently sleeping soundly in bed. She does awaken to verbal stimuli. She is disoriented 3. There is presently no family at bedside. Review of systems is unobtainable due to patient's mentation. Nursing reports period of increased agitation overnight Physical Exam Vital Signs: Temp Pulse Resp BP Pulse Ox 98.0 F 91 17 158/73 H 97 10/05/16 23:25 10/05/16 23:25 10/05/16 23:25 10/05/16 23:25 10/05/16 23:25 Intake & Output 10/05/16 10/06/16 10/07/16 06:59 06:59 06:59 Intake Total 410 728 Balance 410 728 General appearance: PRESENT: no acute distress, thin, well-developed Head exam: PRESENT: atraumatic, normocephalic Eye exam: PRESENT: conjunctiva pink, EOMI, PERRLA. ABSENT: scleral icterus Ear exam: PRESENT: bleeding Mouth exam: PRESENT: moist, tongue midline Neck exam: ABSENT: carotid bruit, JVD, lymphadenopathy, thyromegaly Respiratory exam: PRESENT: clear to auscultation george. ABSENT: rales, rhonchi, wheezes Cardiovascular exam: PRESENT: RRR. ABSENT: diastolic murmur, rubs, systolic murmur Pulses: PRESENT: normal dorsalis pedis pul Vascular exam: PRESENT: normal capillary refill GI/Abdominal exam: PRESENT: normal bowel sounds, soft. ABSENT: distended, guarding, mass, organolmegaly, rebound, tenderness Rectal exam: PRESENT: deferred Extremities exam: PRESENT: full ROM. ABSENT: calf tenderness, clubbing, pedal edema Musculoskeletal exam: PRESENT: full ROM, normal inspection, tenderness - left hip area Neurological exam: PRESENT: alert, altered, CN II-XII grossly intact Psychiatric exam: PRESENT: agitated, flat affect Skin exam: PRESENT: dry, intact, warm. ABSENT: cyanosis, rash Results Laboratory Results: 10/05/16 04:32 10/05/16 04:32 Impressions: Cervical Spine CT 10/01/16 00:00 IMPRESSION: No acute findings. Chest CT 10/01/16 00:00 IMPRESSION: Mildly displaced left 2nd, 3rd, 4th, and 5th rib fractures. Chest X-Ray 10/01/16 00:00 IMPRESSION: No acute cardiopulmonary findings. Head CT 10/01/16 00:00 IMPRESSION: NORMAL BRAIN CT WITHOUT CONTRAST. Hip X-Ray 10/01/16 00:00 IMPRESSION: Impaction deformity/fracture of the left femoral neck. Lumbar Spine X-Ray 10/01/16 00:00 IMPRESSION: No acute findings. Pelvis X-Ray 10/02/16 09:01 IMPRESSION: SATISFACTORY POSTOPERATIVE PELVIS. Assessment & Plan - Diagnosis (1) Closed left hip fracture Qualifiers: Encounter type: initial encounter Qualified Code(s): S72.002A - Fracture of unspecified part of neck of left femur, initial encounter for closed fracture Is this a current diagnosis for this admission?: YesPlan: Patient is postop day #2 ORIF of left hip fracture. Due to her confusion she's had difficulty participating in physical therapy. She will need rehabilitation placement prior to returning to assisted living environment. (2) Multiple fractures of ribs of left side Qualifiers: Encounter type: initial encounter Fracture type: closed Qualified Code(s): S22.42XA - Multiple fractures of ribs, left side, initial encounter for closed fracture Is this a current diagnosis for this admission?: YesPlan: Patient will be at risk for pneumonia due to rib fractures. She has difficulty following respiratory's instructions for incentive spirometry. Will follow with chest xray if symptoms warrant (3) Postoperative delirium Is this a current diagnosis for this admission?: YesPlan: She's not had any narcotic analgesics. Delirium is somewhat improved. (4) Diabetes mellitus type 2 in nonobese Is this a current diagnosis for this admission?: YesPlan: continue current medications and sliding scale coverage. (5) Hypokalemia Is this a current diagnosis for this admission?: YesPlan: We'll replete and monitor (6) CAD (coronary artery disease) Qualifiers: Coronary Disease-Associated Artery/Lesion type: [place] artery [place] vs. transplanted heart: [place] heart Associated angina: without angina Qualified Code(s): I25.10 - Atherosclerotic heart disease of [place] coronary artery without angina pectoris Is this a current diagnosis for this admission?: YesPlan: Continue current medications. (7) Dementia Qualifiers: Dementia type: unspecified type Dementia behavioral disturbance: with behavioral disturbance Qualified Code(s): F03.91 - Unspecified dementia with behavioral disturbance; F10.97 - Alcohol use, unspecified with alcohol- induced persisting dementia Is this a current diagnosis for this admission?: YesPlan: Chronic, worsened by anesthesia and narcotic analgesics. She will have difficulty participating in physical therapy for rehabilitation of her hip. (8) Hyperlipidemia Qualifiers: Hyperlipidemia type: unspecified Qualified Code(s): E78.5 - Hyperlipidemia, unspecified Is this a current diagnosis for this admission?: YesPlan: Continue statin (9) Hypothyroid Qualifiers: Hypothyroidism type: unspecified Qualified Code(s): E03.9 - Hypothyroidism, unspecified Is this a current diagnosis for this admission?: YesPlan: Continue Synthroid (10) Acute blood loss as cause of postoperative anemia Is this a current diagnosis for this admission?: YesPlan: Hemoglobin dropped 7.9 we'll continue to monitor. - Time Time Spent with patient: 25-34 minutes Critical Time spent with patient: 15-24 minutes Medications reviewed and adjusted accordingly: Yes Anticipated discharge: SNF Within: when bed available
[2016-10-06] MEDS: METOPROLOL TARTRATE 25 MG TABLET PO SCH (10:09)
[2016-10-06] MEDS: ISOSORBIDE DINITRATE 20 MG TABLET PO SCH (10:09)
[2016-10-06] MEDS: RISPERIDONE 1 MG TABLET PO SCH ×2 (10:09→17:41)
[2016-10-06] MEDS: SENNOSIDES/DOCUSATE 8.6-50 MG 1 EACH TABLET PO SCH ×2 (10:10→17:41)
[2016-10-06] MEDS: CHOLECALCIFEROL (D3) 1,000 UNIT TABLET PO SCH (10:11)
[2016-10-06] MEDS: MEMANTINE HCL 10 MG TABLET PO SCH ×2 (10:11→17:41)
[2016-10-06] MEDS: PRENATAL VITAMIN W-O CA NO5/FE FUMARATE/FA CAPSULE PO SCH (10:11)
[2016-10-06] MEDS: INSULIN LISPRO 100 UNIT/ML 3 ML VIAL SUBCUT PRN (13:03)
[2016-10-06] MEDS: CLOPIDOGREL BISULFATE 75 MG TABLET PO SCH (13:04)
[2016-10-06 17:06] VITALS: BP 134/60
== END 2016-10-06 19:28 | DRG 470 ==
LOC: ER 22:09 → UNDOADMIN 10-01 05:01 → EH 10-01 05:01 → 4N 10-01 07:39 → EH 10-01 07:44
PROVIDERS: ADMIT Family Medicine; ATTEND Family Medicine
PROC: 0SRS01A Replacement of Left Hip Joint, Femoral Surface with Metal Synthetic Substitute, Uncemented, Open Approach (ICD-10-PCS; principal; 2016-10-02 08:00)
DX: S72.002A Fracture of unspecified part of neck of left femur, initial encounter for closed fracture (principal); N39.0 Urinary tract infection, site not specified; S22.42XA Multiple fractures of ribs, left side, initial encounter for closed fracture; F03.91 Unspecified dementia, unspecified severity, with behavioral disturbance; F05 Delirium due to known physiological condition; D62 Acute posthemorrhagic anemia; I11.0 Hypertensive heart disease with heart failure; W01.0XXA Fall on same level from slipping, tripping and stumbling without subsequent striking against object, initial encounter; E11.9 Type 2 diabetes mellitus without complications; I50.9 Heart failure, unspecified; Y92.000 Kitchen of unspecified non-institutional (private) residence as the place of occurrence of the external cause; F03.90 Unspecified dementia, unspecified severity, without behavioral disturbance, psychotic disturbance, mood disturbance, and anxiety; E03.9 Hypothyroidism, unspecified; E78.5 Hyperlipidemia, unspecified; I25.10 Atherosclerotic heart disease of native coronary artery without angina pectoris; E87.6 Hypokalemia; K21.9 Gastro-esophageal reflux disease without esophagitis; K44.9 Diaphragmatic hernia without obstruction or gangrene; F32.9 Major depressive disorder, single episode, unspecified; Z66 Do not resuscitate; M19.90 Unspecified osteoarthritis, unspecified site; Z95.5 Presence of coronary angioplasty implant and graft; Z85.828 Personal history of other malignant neoplasm of skin; Z90.49 Acquired absence of other specified parts of digestive tract; Z88.6 Allergy status to analgesic agent; Z91.013 Allergy to seafood; Z88.8 Allergy status to other drugs, medicaments and biological substances; Z91.09 Other allergy status, other than to drugs and biological substances
CPT/HCPCS: 01230; 36415; 51702; 70450; 71010; 71260; 72110; 72125; 72170; 80048; 80076; 81001; 82550; 82962; 83735; 84439; 84443; 84484; 85025; 85027; 87086; 88304; 88311; 93005; 93010; 99285; C9290; G8978-GP; G8979-GP; J0690; J0696; J1741; J1815; J2250; J2270; J2704; J3370; J3490; J7030; J7050; J7060; J7120

== ENCOUNTER 2016-10-16 21:38 | Inpatient (IN) | payer MEDICARE ==
--- NOTE | 2016-10-16 22:33 | ER Document Report ---
ED General - General Chief Complaint: Fever Stated Complaint: FEVER Time Seen by Provider: 10/16/16 22:00 Notes: Patient is a 86-year-old female who was sent in from a long term due to a fever. She has a history of dementia and therefore history is difficult to obtain. I have no idea how long the fevers ongoing for. Patient denies any pain currently. She does admit to some coughing. She denies feeling nauseous or having to vomit. Remainder of history is unobtainable due to patient's dementia. The patient's previous records she did have a hip surgery on October 02. A femoral neck fracture. Surgery was preformed by Dr. Felipe TRAVEL OUTSIDE OF THE [place] IN LAST 30 DAYS: No - Related Data Allergies/Adverse Reactions: adhesive tape [Adhesive Tape] Allergy (Verified 09/30/16 23:24) alatrofloxacin mesylate [From Trovan] Allergy (Verified 09/30/16 23:24) aspirin [Aspirin] Allergy (Verified 09/30/16 23:24) codeine [Codeine] Allergy (Verified 09/30/16 23:24) diazepam [From Valium] Allergy (Verified 09/30/16 23:24) morphine [Morphine] Allergy (Verified 09/30/16 23:24) oxycodone [Oxycodone] Allergy (Verified 09/30/16 23:24) Shellfish * [Shellfish] Allergy (Verified 09/30/16 23:24) trovafloxacin mesylate [From Trovan] Allergy (Verified 09/30/16 23:24) darvel Allergy (Uncoded 09/30/16 23:24) dust Allergy (Uncoded 09/30/16 23:24) mold Allergy (Uncoded 09/30/16 23:24) steroids Allergy (Uncoded 09/30/16 23:24) Past Medical History - Social History Smoking Status: Never Smoker Frequency of alcohol use: None Drug Abuse: None Family History: Reviewed & Not Pertinent, Malignancy - Past Medical History Cardiac Medical History: Reports: Hx Congestive Heart Failure, Hx Coronary Artery Disease, Hx Hypercholesterolemia, Hx Hypertension Denies: Hx DVT, Hx Heart Attack, Hx Pulmonary Embolism Pulmonary Medical History: Denies: Hx Asthma, Hx COPD, Hx Sleep Apnea Neurological Medical History: Denies: Hx Seizures Endocrine Medical History: Reports: Hx Diabetes Mellitus Type 2, Hx Hypothyroidism. Denies: Hx Hyperthyroidism Malignancy Medical History: Reports: Hx Skin Cancer - Excised from forehead. GI Medical History: Reports: Hx Gastroesophageal Reflux Disease, Hx Hiatal Hernia. Denies: Hx Cirrhosis, Hx Hepatitis Musculoskeltal Medical History: Reports Hx Arthritis Psychiatric Medical History: Reports: Hx Dementia, Hx Depression - History of Infectious Medical History: Denies: Hx Hepatitis Past Surgical History: Reports: Hx Appendectomy, Hx Cardiac Surgery - Cardiac stent placed, Hx Section, Hx Coronary Stent, Hx Orthopedic Surgery. Denies: Hx Cholecystectomy - Immunizations Hx Diphtheria, Pertussis, Tetanus Vaccination: Yes Hx Pneumococcal Vaccination: 02/27/16 Review of Systems - Review of Systems -: Yes ROS unobtainable due to patient's medical condition - Patient has dementia Physical Exam - Vital signs Vitals: Temp Pulse Resp BP Pulse Ox 100.2 F 103 H 16 113/53 L 93 10/16/16 22:25 10/16/16 22:25 10/16/16 22:25 10/16/16 22:25 10/16/16 22:25 - Notes Notes: General Appearance: Well nourished, alert, cooperative, no acute distress, no obvious discomfort. Vitals: reviewed, See vital signs table. Head: no swelling or tenderness to the head Eyes: PERRL, EOMI, Conjuctiva clear Mouth: No decreasd moisture Neck: Supple, no neck tenderness, No thyromegaly Lungs: No wheezing, No rales, No rhonci, No accessory muscle use, good air exchange bilaterally. Heart: Normal rate, Regular rythm, No murmur, no rub Abdomen: Normal BS, soft, No rigidity, No abdominal tenderness, No guarding, no rebound, no abdominal masses, no organomegaly Extremities: strength 5/5 in all extremities, good pulses in all extremities, no swelling or tenderness in the extremities, no edema. Skin: left hip has closed surgical incision with rubina. Area is erythematous and fluctuant consistent with post operative abscess. Neuro: Some speech is clear while Some speech is garbled, oriented x 1, normal affect, responds appropriately to few questions. Course - Vital Signs Vital signs: Temp Pulse Resp BP Pulse Ox 99.8 F 103 H 16 113/53 L 93 10/17/16 00:20 10/16/16 22:25 10/16/16 22:25 10/16/16 22:25 10/16/16 22:25 - Laboratory Result Diagrams: 10/16/16 23:15 10/16/16 23:15 Laboratory results interpreted by me: 10/16/16 10/16/16 10/16/16 23:15 23:15 23:15 RBC 2.60 L Hgb 7.9 L Hct 22.4 L Plt Count 483 H Seg Neutrophils % 82.6 H Lymphocytes % 7.8 L VBG pH 7.51 H VBG pCO2 32.5 L Sodium 135.7 L BUN 32 H Est GFR ( Amer) 50 L Est GFR (Non-Af Amer) 41 L Glucose 147 H Calcium 8.3 L AST 43 H Total Protein 5.1 L Albumin 2.5 L - Transfer of Care Notes: 10/17/16 00:26 I suspect that the patient's infection is way to what appears to be an incisional abscess over the left hip. I have spoken with Dr. carlisle, orthopedist covering for Dr. Felipe, who requested patient be admitted to the hospitalist service and they would see her first thing in the morning. I did speak with Dr. Mills, hospitalist, who agrees to admit the patient. Dictation of this chart was performed using voice recognition software; therefore, there may be some unintended grammatical errors. Discharge - Discharge Clinical Impression: Fever Qualifiers: Fever type: unspecified Qualified Code(s): R50.9 - Fever, unspecified Post op infection Qualifiers: Encounter type: initial encounter Qualified Code(s): T81.4XXA - Infection following a procedure, initial encounter Admitting Provider: Hospitalist Unit Admitted: Telemetry Referrals: SORAIDA ALANIZ MD [Primary Care Provider] - Follow up as needed
[2016-10-16 23:27] LABS: ABSOLUTE BASOPHILS # (AUTO) 0.1 10^3/uL (0.0-0.2); ABSOLUTE LYMPHOCYTES (AUTO) 0.7 10^3/uL (0.5-4.7); ABSOLUTE MONOCYTES (AUTO) 0.8 10^3/uL (0.1-1.4); ABSOLUTE NEUT (AUTO) 7.3 10^3/uL (1.7-8.2); BASOPHILS % (AUTO) 0.8 % (0-2); EOSINOPHILS % (AUTO) 0.1 % (0-6); HEMATOCRIT 22.4 % (36.0-47.0); HGB HCT DIFFERENCE 1.3; LYMPHOCYTES % (AUTO) 7.8 % (13-45); MEAN CORPUSCULAR HEMOGLOBIN 30.2 pg (27.0-33.4); MEAN CORPUSCULAR HGB CONC 35.1 g/dL (32.0-36.0); MEAN CORPUSCULAR VOLUME 86 fl (80-97); MONOCYTES % (AUTO) 8.7 % (3-13); RED CELL DISTRIBUTION WIDTH 13.8 % (11.5-14.0); SEGMENTED NEUTROPHILS % (AUTO) 82.6 % (42-78); WHITE BLOOD COUNT 8.8 10^3/uL (4.0-10.5)
[2016-10-16 23:29] LABS: VENOUS BLOOD BASE EXCESS 2.8 mmol/L; VENOUS BLOOD HCO3 25.4 mmol/L (20-32); VENOUS BLOOD PCO2 32.5 mmHg (35-63); VENOUS BLOOD PH 7.51 (7.30-7.42)
[2016-10-16 23:34] LABS: HEMOGLOBIN 7.9 g/dL (12.0-15.5)
[2016-10-16 23:43] LABS: ALANINE AMINOTRANSFERASE 36 U/L (9-52); ALBUMIN 2.5 g/dL (3.5-5.0); ALKALINE PHOSPHATASE 89 U/L (38-126); ANION GAP 11 (5-19); ASPARTATE AMINO TRANSFERASE 43 U/L (14-36); BILIRUBIN,DIRECT 0.2 mg/dL (0.0-0.4); BILIRUBIN,TOTAL 0.3 mg/dL (0.2-1.3); BLOOD UREA NITROGEN 32 mg/dL (7-20); CALCIUM 8.3 mg/dL (8.4-10.2); CARBON DIOXIDE 22 mmol/L (22-30); CHLORIDE 103 mmol/L (98-107); CREATININE RESULT 1.24 mg/dL (0.52-1.25); GLUCOSE 147 mg/dL (75-110); POTASSIUM 3.9 mmol/L (3.6-5.0); SODIUM 135.7 mmol/L (137-145); TOTAL PROTEIN 5.1 g/dL (6.3-8.2)
[2016-10-16] MEDS ORDERED: VANCOMYCIN HCL INJ 1000 MG VIAL IV ONE (23:47)
[2016-10-17 00:48] LABS: APPEARANCE,URINE SLIGHTLY-CLOUDY; BILIRUBIN,URINE NEGATIVE (NEGATIVE); GLUCOSE, URINE NEGATIVE (NEGATIVE); KETONES,URINE NEGATIVE (NEGATIVE); LEUKOCYTE ESTERASE,URINE SMALL (NEGATIVE); NITRITE,URINE NEGATIVE (NEGATIVE); PROTEIN,URINE NEGATIVE (NEGATIVE); URINE SPECIFIC GRAVITY 1.018; UROBILINOGEN,URINE NEGATIVE mg/dL (<2.0)
[2016-10-17] MEDS ORDERED: DEXTROSE 50%-WATER 25 GM/50 ML DISP.SYRIN IV PRN ×2 (01:42)
[2016-10-17] MEDS ORDERED: GLUCAGON,HUMAN RECOMB 1 MG INJ IM PRN (01:42)
[2016-10-17] MEDS ORDERED: DEXTROSE 40% GEL 15 GM TUBE PO PRN ×2 (01:42)
[2016-10-17] MEDS ORDERED: PHARMACY COMMUNICATION ORDER MC SCH (01:45)
[2016-10-17] MEDS ORDERED: VANCOMYCIN HCL 0 MG in DEXTROSE 5%-WATER 250 ML IV NR (01:45)
[2016-10-17] MEDS ORDERED: ACETAMINOPHEN 650 MG SUPP.RECT PR PRN (01:47)
--- NOTE | 2016-10-17 02:11 | PDOC H&P ---
History of Present Illness Admission Date/PCP: 10/17/16 00:33 SORAIDA ALANIZ MD Patient complains of: FEVER History of Present Illness: MINESH TROTTER is a 86 year old female, status post surgical repair of a left femoral neck fracture the seventh of this month, who presents from [facility] for evaluation of above complaint. Patient has been discussed with emergency room physician who evaluated the patient. Patient has underlying severe dementia, and at this point in time, is basically nonverbal, and is able to provide no history whatsoever in terms of acute or chronic events, review of systems, personal habits, family history, etc. and son are present at her side. Old inpatient records are reviewed. Temperature 103.3. Uncertain duration of the fever. Per emergency room physician notes, patient denied any pain. Occasional cough. No nausea vomiting. No further information available this point in time. Hospitalized on our service the sixth through the 11th of this month for left hip fracture, undergoing above-noted surgery. History and physical and transfer summary have been reviewed.. Laboratory results are listed in [employer] and are reviewed. X-ray summary results are listed below, with full report(s) reviewed. . Social history/personal habits: . Normally lives at home, but is at [facility] in rehab from her recent surgery. One son. 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 Allergies/adverse reactions are listed in [employer] and are reviewed. Home medications initially autopopulated into [employer] may not accurately reflect patient's true medications, dosages, and/or frequencies. physical science technician to reconcile medications. Unfortunately, patient not able to provide any information relating to her medications/dosages/frequencies. REVIEW OF SYSTEMS: See history and present illness. No further information available this point in time. PHYSICAL EXAMINATION: Neither height nor weight are recorded on the chart.Temperature 99.8; 100.2 upon presentation to the emergency room. Pulse 103 and regular. Blood pressure 113/53. Respirations are 16 and unlabored. 93% saturation on room air. Thin otherwise well-developed elderly female appearing approximately her stated age. Drowsy, but maintaining her airway well. Does open eyes slightly when her name is called, but otherwise is not interactive with her surroundings. Son and are present at her side. Skin is warm and dry. No grossly obvious evidence of rash in areas of skin examined. No subcutaneous nodules palpated. ENT: Hearing difficult to adequately evaluate due to her current status. Tongue midline on protrusion pink and slightly moist. Eyes: No scleral icterus. Pupils equal and reactive to light at 3 mm. [place] conjunctivae. No raccoon eyes Neck is nontender to palpation. Midline trachea. No palpable thyroid nodule mass enlargement or tenderness. Lymphatic: No palpable cervical or clavicular nodes. Psychiatric: Cannot be adequately evaluated due to her current status. See history and present illness. Lungs: Auscultation reveals clear and equal breath sounds bilaterally. No use of accessory respiratory muscles. Cardiovascular: Heart regular rate and rhythm, without gallop murmur or rub. No carotid or abdominal aortic bruits. No ankle or pedal edema. Faintly palpable posterior tibial pulses. Abdomen:soft nontender with positive bowel sounds. No upper abdominal mass or organomegaly palpated. Extremities: Feet are warm and dry. No calf tenderness to compression. No grossly obvious visual evidence of calf swelling. Gentle manipulation of right lower extremity fails to reveal any obvious evidence of injury or instability to knee hip or ankle. No evidence of decubitus formation on heels or malleoli. Clean dry and intact gauze dressing is in place over her left hip. This is left in place. Emergency room physician notes related to her left hip incision are reviewed. Neurologic: Right patellar reflex absent. Absent Babinski. Light touch cannot be determined due to her current status. Past Medical History Past Medical History: For information related to past medical history, please refer to history and physical from the sixth of this month, which is reviewed. Patient not able to provide any further information. Cardiac Medical History: Reports: Congestive Heart Failure, Coronary Artery Disease, Hyperlipidema, Hypertension Denies: DVT, Myocardial Infarction, Pulmonary Embolism Pulmonary Medical History: Denies: Asthma, Chronic Obstructive Pulmonary Disease (COPD), Sleep Apnea Neurological Medical History: Denies: Seizures Endocrine Medical History: Reports: Diabetes Mellitus Type 2, Hypothyroidism Denies: Hyperthyroidism Malignancy Medical History: Reports: Skin Cancer - Excised from forehead. GI Medical History: Reports: Gastroesophageal Reflux Disease, Hiatal Hernia Denies: Cirrhosis, Hepatitis Musculoskeltal Medical History: Reports: Arthritis Psychiatric Medical History: Reports: Dementia, Depression - History of Past Surgical History Past Surgical History: Reports: Appendectomy, Section, Coronary Stent, Orthopedic Surgery - Left hip fracture repair, October 02, 2016 Social History Information Source: Emergency Med Personnel, [facility] Records Lives with: [facility] Smoking Status: Never Smoker Frequency of Alcohol Use: None Hx Recreational Drug Use: No Drugs: None Hx Prescription Drug Abuse: No - Advance Directive Resuscitation Status: Do Not Resuscitate Surrogate healthcare decision maker:: Son and Family History Family History: Reviewed & Not Pertinent, Malignancy Parental Family History Reviewed: No - Above old records reviewed. Patient can provide no further information. Children Family History Reviewed: No - Above old records reviewed. Patient can provide no further information. Sibling(s) Family History Reviewed.: No - Above old records reviewed. Patient can provide no further information. Medication/Allergy Home Medications: Atorvastatin Calcium [Lipitor 40 mg Tablet] 40 mg PO QHS 10/17/16 Centrum Silver Multivitamin 1 ea PO DAILY 10/17/16 Cholecalciferol (Vitamin D3) [Vitamin D3 1000 Unit Tablet] 1,000 unit PO DAILY 10/17/16 Clopidogrel Bisulfate [Plavix 75 mg Tablet] 75 mg PO Q2D 10/17/16 Glipizide [Glocotrol 5 Mg Tablet] 5 mg PO QAM 10/17/16 Insulin Lispro [Humalog Insulin 100 Unit/1 ml 3 ml Vial] 0 unit SUBCUT ACHS Isosorbide Mononitrate [Imdur 60 mg Tablet.er] 60 mg PO DAILY 10/17/16 Levothyroxine Sodium [Synthroid 0.15 mg Tablet] 0.15 mg PO DAILY 10/17/16 Losartan/Hydrochlorothiazide [Hyzaar 100-12.5 Tablet] 1 each PO DAILY 10/17/16 Memantine HCl [Namenda 10 mg Tablet] 10 mg PO Q12 10/17/16 Metoprolol Tartrate [Lopressor 25 mg Tablet] 12.5 mg PO Q12 10/17/16 Quetiapine Fumarate [Seroquel 25 mg Tablet] 25 mg PO QHS 10/17/16 Ranitidine HCl [Zantac 75 mg Tablet] 75 mg PO BID 10/17/16 Risperidone [Risperdal 1 mg Tablet] 1 mg PO Q12 10/17/16 Sennosides/Docusate 8.6-50 mg [Senna Plus Tablet] 1 tab PO DAILY 10/17/16 Tramadol HCl [Ultram] 50 mg PO Q6HP PRN 10/17/16 Allergies/Adverse Reactions: adhesive tape [Adhesive Tape] Allergy (Verified 09/30/16 23:24) alatrofloxacin mesylate [From Trovan] Allergy (Verified 09/30/16 23:24) aspirin [Aspirin] Allergy (Verified 09/30/16 23:24) codeine [Codeine] Allergy (Verified 09/30/16 23:24) diazepam [From Valium] Allergy (Verified 09/30/16 23:24) morphine [Morphine] Allergy (Verified 09/30/16 23:24) oxycodone [Oxycodone] Allergy (Verified 09/30/16 23:24) Shellfish * [Shellfish] Allergy (Verified 09/30/16 23:24) trovafloxacin mesylate [From Trovan] Allergy (Verified 09/30/16 23:24) darvel Allergy (Uncoded 09/30/16 23:24) dust Allergy (Uncoded 09/30/16 23:24) mold Allergy (Uncoded 09/30/16 23:24) steroids Allergy (Uncoded 09/30/16 23:24) Physical Exam Vital Signs: Temp Pulse Resp BP Pulse Ox 99.8 F 103 H 16 113/53 L 93 10/17/16 00:20 10/16/16 22:25 10/16/16 22:25 10/16/16 22:25 10/16/16 22:25 Results Impressions: Chest X-Ray 10/16/16 22:11 IMPRESSION: NO ACUTE RADIOGRAPHIC FINDING IN THE CHEST. Assessment & Plan - Diagnosis (1) ARF (acute renal failure) Qualifiers: Acute renal failure type: unspecified Qualified Code(s): N17.9 - Acute kidney failure, unspecified Is this a current diagnosis for this admission?: YesPlan: Likely due at least in part to an element of dehydration. Gentle IV fluid. Follow-up chemistry. (2) Abnormal urinalysis Is this a current diagnosis for this admission?: YesPlan: Urine culture. (3) Acute blood loss as cause of postoperative anemia Is this a current diagnosis for this admission?: YesPlan: Follow-up CBC with differential. No need for transfusion at present time. (4) Elevated LFTs Is this a current diagnosis for this admission?: YesPlan: Mild elevation of transaminase. Follow-up chemistry. (5) Postoperative wound infection of left hip Qualifiers: Encounter type: initial encounter Qualified Code(s): T81.4XXA - Infection following a procedure, initial encounter; B99.9 - Unspecified infectious disease Is this a current diagnosis for this admission?: YesPlan: On-call orthopedist is aware patient will be admitted to the hospital. He will notify primary surgeon later this morning. Blood cultures. Ancef and intravenous vancomycin. Pharmacy to assist with dosing. Knee high SCD, right lower extremity only, due to infection, for DVT prophylaxis , along with subcutaneous heparin. Impression and plans were discussed with and son, both of whom concur. Time spent in evaluation and management of patient: 62 minutes. (6) DNR (do not resuscitate) Is this a current diagnosis for this admission?: YesPlan: Implications of DO NOT RESUSCITATE/DO NOT INTUBATE status discussed with son and . Discussed in layperson's terms. Implications understood. son and are the health care decision makers. Their conversation is lucid and appropriate. They desire DO NOT RESUSCITATE/DO NOT INTUBATE status, as has been the case in the past. Will honor Their wishes. (7) Diabetes mellitus type 2 in nonobese Is this a current diagnosis for this admission?: YesPlan: Accu-Cheks with appropriate sliding scale coverage. Resume home medications as appropriate once these have been determined and reviewed. (8) Hyperlipidemia Qualifiers: Hyperlipidemia type: unspecified Qualified Code(s): E78.5 - Hyperlipidemia, unspecified Is this a current diagnosis for this admission?: YesPlan: Resume home medications as appropriate once these have been determined and reviewed. (9) Hypothyroid Qualifiers: Hypothyroidism type: unspecified Qualified Code(s): E03.9 - Hypothyroidism, unspecified Is this a current diagnosis for this admission?: YesPlan: Resume home medications as appropriate once these have been determined and reviewed. (10) Stented coronary artery Is this a current diagnosis for this admission?: YesPlan: Resume home medications as appropriate once these have been determined and reviewed. - Inpatient Certification Based on my medical assessment, after consideration of the patient's comorbidities, presenting symptoms, or acuity I expect that the services needed warrant INPATIENT care.: Yes I certify that my determination is in accordance with my understanding of Medicare's requirements for reasonable and necessary INPATIENT services [42 CFR 412.3e].: Yes Medical Necessity: Need Close Monitoring Due to Risk of Patient Decompensation, Need For IV Fluids, Need For Continuous Telemetry Monitoring, Need for IV Antibiotics, Risk of Complication if Not Cared For in Hospital Post Hospital Care: D/C or Transfer Summary
[2016-10-17 02:12] LABS: ADD ON TESTING BLD IN LAB ACKNOWLEDGE
[2016-10-17 02:52] LABS: MAGNESIUM 1.9 mg/dL (1.6-2.3)
[2016-10-17] MEDS ORDERED: CEFAZOLIN 1 GM/D5W RTU 1 GM/50 ML RTUPB IV ONE (03:00)
[2016-10-17] MEDS: NORMAL SALINE 1000 ML 1,000 ML IV PRN ×2 (05:38→18:04)
[2016-10-17 06:46] LABS: ABSOLUTE LYMPHOCYTES (AUTO) 0.7 10^3/uL (0.5-4.7); ABSOLUTE MONOCYTES (AUTO) 0.7 10^3/uL (0.1-1.4); ABSOLUTE NEUT (AUTO) 6.8 10^3/uL (1.7-8.2); BASOPHILS % (AUTO) 0.6 % (0-2); EOSINOPHILS % (AUTO) 0.3 % (0-6); HEMATOCRIT 21.9 % (36.0-47.0); HGB HCT DIFFERENCE 0.9; LYMPHOCYTES % (AUTO) 8.3 % (13-45); MEAN CORPUSCULAR HGB CONC 34.6 g/dL (32.0-36.0); MEAN CORPUSCULAR VOLUME 87 fl (80-97); MONOCYTES % (AUTO) 8.2 % (3-13); RED BLOOD COUNT 2.53 10^6/uL (3.72-5.28); RED CELL DISTRIBUTION WIDTH 13.6 % (11.5-14.0); SEGMENTED NEUTROPHILS % (AUTO) 82.6 % (42-78); WHITE BLOOD COUNT 8.2 10^3/uL (4.0-10.5)
[2016-10-17 06:50] LABS: HEMOGLOBIN 7.6 g/dL (12.0-15.5)
[2016-10-17 07:02] LABS: ALANINE AMINOTRANSFERASE 36 U/L (9-52); ALBUMIN 2.2 g/dL (3.5-5.0); ALKALINE PHOSPHATASE 83 U/L (38-126); ANION GAP 7 (5-19); ASPARTATE AMINO TRANSFERASE 39 U/L (14-36); BILIRUBIN,DIRECT 0.3 mg/dL (0.0-0.4); BILIRUBIN,TOTAL 0.5 mg/dL (0.2-1.3); BLOOD UREA NITROGEN 31 mg/dL (7-20); CALCIUM 7.9 mg/dL (8.4-10.2); CARBON DIOXIDE 23 mmol/L (22-30); CHLORIDE 102 mmol/L (98-107); CREATININE RESULT 0.99 mg/dL (0.52-1.25); GLUCOSE 202 mg/dL (75-110); POTASSIUM 3.7 mmol/L (3.6-5.0); SODIUM 131.6 mmol/L (137-145)
[2016-10-17] MEDS: DOCUSATE SODIUM 100 MG CAPSULE PO SCH ×2 (11:27→18:02)
[2016-10-17 15:23] LABS: ABSOLUTE EOSINOPHILS # (AUTO) 0.1 10^3/uL (0.0-0.6); ABSOLUTE LYMPHOCYTES (AUTO) 0.7 10^3/uL (0.5-4.7); ABSOLUTE MONOCYTES (AUTO) 0.5 10^3/uL (0.1-1.4); ABSOLUTE NEUT (AUTO) 7.5 10^3/uL (1.7-8.2); BASOPHILS % (AUTO) 0.5 % (0-2); EOSINOPHILS % (AUTO) 0.7 % (0-6); HEMATOCRIT 24.2 % (36.0-47.0); HEMOGLOBIN 8.1 g/dL (12.0-15.5); HGB HCT DIFFERENCE 0.1; MEAN CORPUSCULAR HGB CONC 33.4 g/dL (32.0-36.0); MEAN CORPUSCULAR VOLUME 87 fl (80-97); RED BLOOD COUNT 2.79 10^6/uL (3.72-5.28); RED CELL DISTRIBUTION WIDTH 13.8 % (11.5-14.0); SEGMENTED NEUTROPHILS % (AUTO) 84.8 % (42-78); WHITE BLOOD COUNT 8.9 10^3/uL (4.0-10.5)
[2016-10-17] MEDS ORDERED: CLOPIDOGREL BISULFATE 75 MG TABLET PO ONE (15:30)
[2016-10-17 15:48] LABS: ANION GAP 7 (5-19); BLOOD UREA NITROGEN 25 mg/dL (7-20); CALCIUM 8.4 mg/dL (8.4-10.2); CARBON DIOXIDE 25 mmol/L (22-30); CHLORIDE 103 mmol/L (98-107); GLUCOSE 157 mg/dL (75-110); POTASSIUM 3.9 mmol/L (3.6-5.0); SODIUM 134.5 mmol/L (137-145)
[2016-10-17 16:02] LABS: ERYTHROCYTE SEDIMENTATION RATE 75 mm/hr (0-30)
[2016-10-17 16:23] LABS: C-REACTIVE PROTEIN 151.5 mg/L (<10.0)
[2016-10-17] MEDS: HEPARIN SOD (PORCINE) 5,000 UNIT/ML 1 ML SYRINGE SUBCUT SCH ×2 (16:35→22:28)
[2016-10-17] MEDS ORDERED: RANITIDINE HCL 75 MG PO SCH (18:00)
[2016-10-17] MEDS: CEFAZOLIN 1 GM/D5W RTU 1 GM/50 ML RTUPB IV SCH (18:03)
[2016-10-17] MEDS: QUETIAPINE FUMARATE 25 MG TABLET PO SCH (22:27)
[2016-10-17] MEDS: VANCOMYCIN HCL 750 MG in DEXTROSE 5%-WATER 250 ML IV SCH (22:27)
[2016-10-17] MEDS: FAMOTIDINE 20 MG TABLET PO SCH (22:27)
[2016-10-17] MEDS: METOPROLOL TARTRATE 25 MG TABLET PO SCH (22:27)
[2016-10-17] MEDS: RISPERIDONE 1 MG TABLET PO SCH (22:27)
[2016-10-17] MEDS: ATORVASTATIN CALCIUM 40 MG TABLET PO SCH (22:28)
[2016-10-17] MEDS: MEMANTINE HCL 10 MG TABLET PO SCH (22:28)
[2016-10-18] MEDS: CEFAZOLIN 1 GM/D5W RTU 1 GM/50 ML RTUPB IV SCH ×3 (02:54→18:22)
[2016-10-18] MEDS: TRAMADOL HCL 50 MG TABLET PO PRN (04:00)
--- NOTE | 2016-10-18 06:54 | PDOC PROGRESS REPORT ---
Subjective Progress Note for:: 10/18/16 Subjective:: Nonresponsive Physical Exam Vital Signs: Temp Pulse Resp BP Pulse Ox 37.6 C 88 16 152/58 H 100 10/17/16 23:46 10/17/16 23:46 10/17/16 23:46 10/17/16 23:46 10/17/16 23:46 Intake & Output 10/16/16 10/17/16 10/18/16 06:59 06:59 06:59 Intake Total 50 1215 Balance 50 1215 Weight 52.8 kg General appearance: PRESENT: no acute distress Head exam: PRESENT: normocephalic Respiratory exam: PRESENT: unlabored Pulses: PRESENT: +1 pedal pulses bilateral Vascular exam: PRESENT: normal capillary refill GI/Abdominal exam: PRESENT: soft Rectal exam: PRESENT: deferred Extremities exam: PRESENT: other - When I saw the patient yesterday afternoon the staple line was intact and there was a very small amount of erythema along the incision. There was no drainage. There was a subcutaneous ballotable fluid collection. Approximately 3 AM there began spontaneous drainage of purulent material Results Laboratory Results: 10/17/16 14:56 10/17/16 14:56 10/17/16 10/17/16 10/17/16 06:23 07:23 14:56 WBC 8.9 RBC 2.79 L Hgb 8.1 L Hct 24.2 L MCV 87 MCH 29.0 MCHC 33.4 RDW 13.8 Plt Count 490 H Seg Neutrophils % 84.8 H Lymphocytes % 8.0 L Monocytes % 6.0 Eosinophils % 0.7 Basophils % 0.5 Absolute Neutrophils 7.5 Absolute Lymphocytes 0.7 Absolute Monocytes 0.5 Absolute Eosinophils 0.1 Absolute Basophils 0.0 Sodium 131.6 L Potassium 3.7 Chloride 102 Carbon Dioxide 23 Anion Gap 7 BUN 31 H Creatinine 0.99 Est GFR ( Amer) > 60 Est GFR (Non-Af Amer) 53 L Glucose 202 H Calcium 7.9 L Total Bilirubin 0.5 AST 39 H ALT 36 Alkaline Phosphatase 83 C-Reactive Protein Total Protein 5.0 L Albumin 2.2 L Blood Type O POSITIVE Antibody Screen POSITIVE 10/17/16 14:56 WBC RBC Hgb Hct MCV MCH MCHC RDW Plt Count Seg Neutrophils % Lymphocytes % Monocytes % Eosinophils % Basophils % Absolute Neutrophils Absolute Lymphocytes Absolute Monocytes Absolute Eosinophils Absolute Basophils Sodium 134.5 L Potassium 3.9 Chloride 103 Carbon Dioxide 25 Anion Gap 7 BUN 25 H Creatinine 0.90 Est GFR ( Amer) > 60 Est GFR (Non-Af Amer) > 60 Glucose 157 H Calcium 8.4 Total Bilirubin AST ALT Alkaline Phosphatase C-Reactive Protein 151.5 H Total Protein Albumin Blood Type Antibody Screen Impressions: Chest X-Ray 10/16/16 22:11 IMPRESSION: NO ACUTE RADIOGRAPHIC FINDING IN THE CHEST. Status: Imported from PACS Assessment & Plan - Diagnosis (1) Postoperative wound infection of left hip Qualifiers: Encounter type: initial encounter Qualified Code(s): T81.4XXA - Infection following a procedure, initial encounter; B99.9 - Unspecified infectious disease Is this a current diagnosis for this admission?: YesPlan: To be obtained of the purulent drainage this morning. Plan for surgical I&D tomorrow. - Time Time Spent with patient: 15-24 minutes Within: Other
[2016-10-18] MEDS ORDERED: CENTRUM SILVER MULTIVITAMIN PO SCH (10:00)
[2016-10-18] MEDS: SENNOSIDES/DOCUSATE 8.6-50 MG 1 EACH TABLET PO SCH (10:18)
[2016-10-18] MEDS: METOPROLOL TARTRATE 25 MG TABLET PO SCH ×2 (10:18→21:39)
[2016-10-18] MEDS: HEPARIN SOD (PORCINE) 5,000 UNIT/ML 1 ML SYRINGE SUBCUT SCH ×2 (10:19→21:39)
[2016-10-18] MEDS: CHOLECALCIFEROL (D3) 1,000 UNIT TABLET PO SCH (10:19)
[2016-10-18] MEDS: MULTIVITAMIN TABLET PO SCH (10:19)
[2016-10-18] MEDS: FAMOTIDINE 20 MG TABLET PO SCH ×2 (10:19→21:39)
[2016-10-18] MEDS: DOCUSATE SODIUM 100 MG CAPSULE PO SCH ×2 (10:19→16:53)
[2016-10-18] MEDS: MEMANTINE HCL 10 MG TABLET PO SCH ×2 (10:19→21:39)
[2016-10-18] MEDS: ISOSORBIDE MONONITRATE 60 MG TAB.ER.24H PO SCH (10:19)
[2016-10-18] MEDS: RISPERIDONE 1 MG TABLET PO SCH ×2 (10:20→21:39)
[2016-10-18] MEDS: GLIPIZIDE 5 MG TABLET PO SCH (10:20)
[2016-10-18 10:32] LABS: ANION GAP 6 (5-19); BLOOD UREA NITROGEN 19 mg/dL (7-20); CALCIUM 8.1 mg/dL (8.4-10.2); CARBON DIOXIDE 24 mmol/L (22-30); CHLORIDE 102 mmol/L (98-107); CREATININE RESULT 0.79 mg/dL (0.52-1.25); GLUCOSE 208 mg/dL (75-110); POTASSIUM 3.9 mmol/L (3.6-5.0); SODIUM 131.7 mmol/L (137-145)
[2016-10-18] MEDS ORDERED: NORMAL SALINE 250 ML IV PRN ×2 (11:56)
[2016-10-18] MEDS: LEVOTHYROXINE SODIUM 0.15 MG TABLET PO SCH (13:44)
[2016-10-18] MEDS: NORMAL SALINE 1000 ML 1,000 ML IV PRN (15:14)
[2016-10-18 20:29] LABS: ABSOLUTE EOSINOPHILS # (AUTO) 0.3 10^3/uL (0.0-0.6); ABSOLUTE LYMPHOCYTES (AUTO) 0.7 10^3/uL (0.5-4.7); ABSOLUTE MONOCYTES (AUTO) 0.5 10^3/uL (0.1-1.4); ABSOLUTE NEUT (AUTO) 8.4 10^3/uL (1.7-8.2); BASOPHILS % (AUTO) 0.3 % (0-2); EOSINOPHILS % (AUTO) 2.7 % (0-6); HEMATOCRIT 26.8 % (36.0-47.0); HEMOGLOBIN 9.1 g/dL (12.0-15.5); HGB HCT DIFFERENCE 0.5; LYMPHOCYTES % (AUTO) 7.3 % (13-45); MEAN CORPUSCULAR HEMOGLOBIN 28.9 pg (27.0-33.4); MEAN CORPUSCULAR VOLUME 85 fl (80-97); MONOCYTES % (AUTO) 4.9 % (3-13); RED BLOOD COUNT 3.15 10^6/uL (3.72-5.28); RED CELL DISTRIBUTION WIDTH 13.9 % (11.5-14.0); SEGMENTED NEUTROPHILS % (AUTO) 84.8 % (42-78); WHITE BLOOD COUNT 9.9 10^3/uL (4.0-10.5)
[2016-10-18] MEDS: QUETIAPINE FUMARATE 25 MG TABLET PO SCH (21:39)
[2016-10-18] MEDS: VANCOMYCIN HCL 750 MG in DEXTROSE 5%-WATER 250 ML IV SCH (21:40)
[2016-10-18] MEDS: ATORVASTATIN CALCIUM 40 MG TABLET PO SCH (21:40)
[2016-10-19] MEDS: TRAMADOL HCL 50 MG TABLET PO PRN ×2 (00:47→22:33)
[2016-10-19] MEDS: CEFAZOLIN 1 GM/D5W RTU 1 GM/50 ML RTUPB IV SCH ×3 (01:53→18:47)
[2016-10-19] MEDS: LEVOTHYROXINE SODIUM 0.15 MG TABLET PO SCH (05:31)
[2016-10-19] MEDS ORDERED: RINGERS SOLUTION,LACTATED 1,000 ML IV PRN (07:05)
--- NOTE | 2016-10-19 07:06 | PDOC PROGRESS REPORT ---
Subjective Progress Note for:: 10/19/16 Subjective:: Patient nonresponsive Physical Exam Vital Signs: Temp Pulse Resp BP Pulse Ox 36.9 C 85 14 157/93 H 96 10/19/16 03:00 10/19/16 03:00 10/19/16 03:00 10/19/16 03:00 10/19/16 03:00 Intake & Output 10/18/16 10/19/16 10/20/16 06:59 06:59 06:59 Intake Total 2215 3017 Balance 2215 3017 Weight 59.5 kg General appearance: PRESENT: no acute distress Head exam: PRESENT: normocephalic Respiratory exam: PRESENT: unlabored Cardiovascular exam: PRESENT: RRR Pulses: PRESENT: +1 pedal pulses bilateral Vascular exam: PRESENT: normal capillary refill GI/Abdominal exam: PRESENT: soft Rectal exam: PRESENT: deferred Extremities exam: PRESENT: other - Left hip dressing with purulent drainage Skin exam: PRESENT: dry, intact, warm. ABSENT: cyanosis, rash Results Laboratory Results: 10/18/16 20:00 10/18/16 10:05 10/17/16 10/18/16 10/18/16 07:23 10:05 20:00 WBC 9.9 RBC 3.15 L Hgb 9.1 L Hct 26.8 L MCV 85 MCH 28.9 MCHC 34.0 RDW 13.9 Plt Count 505 H Seg Neutrophils % 84.8 H Lymphocytes % 7.3 L Monocytes % 4.9 Eosinophils % 2.7 Basophils % 0.3 Absolute Neutrophils 8.4 H Absolute Lymphocytes 0.7 Absolute Monocytes 0.5 Absolute Eosinophils 0.3 Absolute Basophils 0.0 Sodium 131.7 L Potassium 3.9 Chloride 102 Carbon Dioxide 24 Anion Gap 6 BUN 19 Creatinine 0.79 Est GFR ( Amer) > 60 Est GFR (Non-Af Amer) > 60 Glucose 208 H Calcium 8.1 L Blood Type O POSITIVE Antibody Screen POSITIVE Impressions: Chest X-Ray 10/16/16 22:11 IMPRESSION: NO ACUTE RADIOGRAPHIC FINDING IN THE CHEST. Status: Imported from PACS Assessment & Plan - Diagnosis (1) Postoperative wound infection of left hip Qualifiers: Encounter type: initial encounter Qualified Code(s): T81.4XXA - Infection following a procedure, initial encounter; B99.9 - Unspecified infectious disease Is this a current diagnosis for this admission?: YesPlan: 86 year-old white female approximately 2 weeks status post left hemiarthroplasty for femoral neck fracture now with drainage containing gram- positive cocci. For I&D later today under choice anesthesia - Time Time Spent with patient: 15-24 minutes Anticipated discharge: SNF Within: Other
[2016-10-19] MEDS: CLOPIDOGREL BISULFATE 75 MG TABLET PO SCH (11:23)
[2016-10-19] MEDS: CHOLECALCIFEROL (D3) 1,000 UNIT TABLET PO SCH (11:23)
[2016-10-19] MEDS: ISOSORBIDE MONONITRATE 60 MG TAB.ER.24H PO SCH (11:23)
[2016-10-19] MEDS: RISPERIDONE 1 MG TABLET PO SCH ×2 (11:24→22:21)
[2016-10-19] MEDS: SENNOSIDES/DOCUSATE 8.6-50 MG 1 EACH TABLET PO SCH (11:24)
[2016-10-19] MEDS: FAMOTIDINE 20 MG TABLET PO SCH ×2 (11:24→22:21)
[2016-10-19] MEDS: GLIPIZIDE 5 MG TABLET PO SCH (11:24)
[2016-10-19] MEDS: LACTOBACILLUS ACIDOPHILUS 250 MG TAB PO SCH ×2 (11:24→18:46)
[2016-10-19] MEDS: MULTIVITAMIN TABLET PO SCH (11:24)
[2016-10-19] MEDS: MEMANTINE HCL 10 MG TABLET PO SCH ×2 (11:25→22:21)
[2016-10-19] MEDS: DOCUSATE SODIUM 100 MG CAPSULE PO SCH ×2 (11:25→18:46)
[2016-10-19] MEDS: METOPROLOL TARTRATE 25 MG TABLET PO SCH ×2 (11:25→22:21)
[2016-10-19] MEDS: HEPARIN SOD (PORCINE) 5,000 UNIT/ML 1 ML SYRINGE SUBCUT SCH ×2 (11:26→22:21)
[2016-10-19] MEDS ORDERED: THROMBIN (BOVINE) 5000 UNIT EPITAXIS KIT ONE (14:52)
[2016-10-19] MEDS ORDERED: BACITRACIN INJ 50,000 UNIT VIAL ONE (14:52)
[2016-10-19] MEDS ORDERED: THROMBIN (BOVINE) TOPICAL 20000 UNIT VIAL ONE (14:52)
[2016-10-19] MEDS ORDERED: PROPOFOL INJ 200 MG/20 ML VIAL IV ONE (15:49)
[2016-10-19] MEDS ORDERED: CEFAZOLIN INJ 1 GM VIAL ONE (17:17)
--- NOTE | 2016-10-19 17:34 | Operative Report ---
Operative Report DATE OF SURGERY: 10/19/16 PREOPERATIVE DIAGNOSIS: Left hip periprosthetic infection OPERATION: Irrigation and debridement SURGEON: BONI TIERNEY ANESTHESIA: Spinal TISSUE REMOVED OR ALTERED: Cultures to microbiology ESTIMATED BLOOD LOSS: Minimal PROCEDURE: The patient in a right lateral decubitus position on the operating table left lower extremities prepped and draped in a sterile fashion. The existing rubina are removed. The existing wound is open. Underneath this there is a large amount of turbid yellow fluid which was aspirated and sent to microbiology. The wound is then to take also debrided. It is irrigated with 3 L normal strength and a bacitracin followed by 3 L of normal saline. The wound was then again inspected and repeat debrided. It is closed in layers with interrupted PDS followed by rubina. A sterile compressive dressing was applied and the patient's return to the PACU in satisfactory condition.
[2016-10-19] MEDS ORDERED: DIPHENHYDRAMINE HCL 50 MG/ML VIAL IV PRN (17:55)
[2016-10-19] MEDS ORDERED: MEPERIDINE HCL/PF INJ 25 MG/1 ML DISP.SYRIN IV PRN (17:55)
[2016-10-19] MEDS ORDERED: ONDANSETRON HCL INJ/PF 4 MG/2 ML SDV IV PRN (17:55)
[2016-10-19 22:13] LABS: CREATININE RESULT 0.69 mg/dL (0.52-1.25)
[2016-10-19] MEDS: QUETIAPINE FUMARATE 25 MG TABLET PO SCH (22:21)
[2016-10-19] MEDS: VANCOMYCIN HCL 750 MG in DEXTROSE 5%-WATER 250 ML IV SCH (22:21)
[2016-10-19] MEDS: ATORVASTATIN CALCIUM 40 MG TABLET PO SCH (22:21)
[2016-10-20] MEDS: CEFAZOLIN 1 GM/D5W RTU 1 GM/50 ML RTUPB IV SCH ×2 (02:12→10:13)
[2016-10-20] MEDS: LEVOTHYROXINE SODIUM 0.15 MG TABLET PO SCH (05:40)
[2016-10-20 05:59] LABS: ABSOLUTE EOSINOPHILS # (AUTO) 0.2 10^3/uL (0.0-0.6); ABSOLUTE LYMPHOCYTES (AUTO) 0.8 10^3/uL (0.5-4.7); ABSOLUTE MONOCYTES (AUTO) 0.5 10^3/uL (0.1-1.4); ABSOLUTE NEUT (AUTO) 6.3 10^3/uL (1.7-8.2); BASOPHILS % (AUTO) 0.5 % (0-2); EOSINOPHILS % (AUTO) 2.1 % (0-6); HEMATOCRIT 24.6 % (36.0-47.0); HEMOGLOBIN 8.4 g/dL (12.0-15.5); HGB HCT DIFFERENCE 0.6; MEAN CORPUSCULAR HEMOGLOBIN 29.1 pg (27.0-33.4); MEAN CORPUSCULAR HGB CONC 34.2 g/dL (32.0-36.0); MEAN CORPUSCULAR VOLUME 85 fl (80-97); MONOCYTES % (AUTO) 6.7 % (3-13); RED BLOOD COUNT 2.89 10^6/uL (3.72-5.28); RED CELL DISTRIBUTION WIDTH 13.9 % (11.5-14.0); SEGMENTED NEUTROPHILS % (AUTO) 80.7 % (42-78); WHITE BLOOD COUNT 7.8 10^3/uL (4.0-10.5)
[2016-10-20 06:07] LABS: ANION GAP 8 (5-19); BLOOD UREA NITROGEN 16 mg/dL (7-20); CALCIUM 9.3 mg/dL (8.4-10.2); CARBON DIOXIDE 25 mmol/L (22-30); CHLORIDE 104 mmol/L (98-107); CREATININE RESULT 0.72 mg/dL (0.52-1.25); GLUCOSE 158 mg/dL (75-110); POTASSIUM 3.9 mmol/L (3.6-5.0); SODIUM 136.6 mmol/L (137-145)
[2016-10-20] MEDS: GLIPIZIDE 5 MG TABLET PO SCH (08:11)
[2016-10-20] MEDS: METOPROLOL TARTRATE 25 MG TABLET PO SCH ×2 (10:16→21:50)
[2016-10-20] MEDS: DOCUSATE SODIUM 100 MG CAPSULE PO SCH ×2 (10:17→18:19)
[2016-10-20] MEDS: MULTIVITAMIN TABLET PO SCH (10:17)
[2016-10-20] MEDS: SENNOSIDES/DOCUSATE 8.6-50 MG 1 EACH TABLET PO SCH (10:19)
[2016-10-20] MEDS: FAMOTIDINE 20 MG TABLET PO SCH ×2 (10:19→21:58)
[2016-10-20] MEDS: LACTOBACILLUS ACIDOPHILUS 250 MG TAB PO SCH ×2 (10:19→18:19)
[2016-10-20] MEDS: MEMANTINE HCL 10 MG TABLET PO SCH ×2 (10:19→21:58)
[2016-10-20] MEDS: RISPERIDONE 1 MG TABLET PO SCH ×2 (10:19→21:58)
[2016-10-20] MEDS: CHOLECALCIFEROL (D3) 1,000 UNIT TABLET PO SCH (10:19)
[2016-10-20] MEDS: ISOSORBIDE MONONITRATE 60 MG TAB.ER.24H PO SCH (10:20)
[2016-10-20] MEDS: HEPARIN SOD (PORCINE) 5,000 UNIT/ML 1 ML SYRINGE SUBCUT SCH ×2 (10:20→21:58)
[2016-10-20] MEDS ORDERED: LEVOFLOXACIN 750 MG/D5W RTU 750 MG/150 ML RTUPB IV ONE (11:00)
--- NOTE | 2016-10-20 17:04 | PDOC PROGRESS REPORT ---
Subjective Progress Note for:: 10/20/16 Subjective:: Patient seen on morning rounds. She is resting quietly in bed. She is confused to place, time and situation. She does recognize her when he is in the room. She denies any pain at the present time. She denies any shortness of breath or dyspnea. She denies any nausea, vomiting or abdominal pain. is not present in the room at this time. She had an uneventful post operative evening after wash out of infected left hip. Physical Exam Vital Signs: Temp Pulse Resp BP Pulse Ox 98.2 F 63 12 113/54 L 98 10/20/16 12:00 10/20/16 12:00 10/20/16 12:00 10/20/16 12:00 10/20/16 12:00 Intake & Output 10/19/16 10/20/16 10/21/16 06:59 06:59 06:59 Intake Total 3017 90251 Output Total 6910 Balance 3017 5927 Weight 59.5 kg General appearance: PRESENT: no acute distress, thin, well-developed Head exam: PRESENT: atraumatic, normocephalic Eye exam: PRESENT: conjunctiva pale Ear exam: PRESENT: normal external ear exam Mouth exam: PRESENT: moist, tongue midline Neck exam: ABSENT: carotid bruit, JVD, lymphadenopathy, thyromegaly Respiratory exam: PRESENT: clear to auscultation george. ABSENT: rales, rhonchi, wheezes Cardiovascular exam: PRESENT: RRR. ABSENT: diastolic murmur, rubs, systolic murmur Pulses: PRESENT: normal carotid pulses, normal radial pulses Vascular exam: PRESENT: pallor GI/Abdominal exam: PRESENT: normal bowel sounds, soft. ABSENT: distended, guarding, mass, organolmegaly, rebound, tenderness Rectal exam: PRESENT: deferred Extremities exam: PRESENT: full ROM. ABSENT: calf tenderness, clubbing, pedal edema Neurological exam: PRESENT: alert, altered, awake, oriented to person, CN II- XII grossly intact. ABSENT: motor sensory deficit Psychiatric exam: PRESENT: flat affect Focused psych exam: PRESENT: flight of ideas Skin exam: PRESENT: dry, warm Results Laboratory Results: 10/20/16 05:30 10/20/16 05:30 10/19/16 10/20/16 10/20/16 21:35 05:30 05:30 WBC 7.8 RBC 2.89 L Hgb 8.4 L Hct 24.6 L MCV 85 MCH 29.1 MCHC 34.2 RDW 13.9 Plt Count 476 H Seg Neutrophils % 80.7 H Lymphocytes % 10.0 L Monocytes % 6.7 Eosinophils % 2.1 Basophils % 0.5 Absolute Neutrophils 6.3 Absolute Lymphocytes 0.8 Absolute Monocytes 0.5 Absolute Eosinophils 0.2 Absolute Basophils 0.0 Sodium 136.6 L Potassium 3.9 Chloride 104 Carbon Dioxide 25 Anion Gap 8 BUN 16 Creatinine 0.69 0.72 Est GFR ( Amer) > 60 > 60 Est GFR (Non-Af Amer) > 60 > 60 Glucose 158 H Calcium 9.3 10/18/16 06:40 Hip - Left Gram Stain - Final Impressions: Chest X-Ray 10/16/16 22:11 IMPRESSION: NO ACUTE RADIOGRAPHIC FINDING IN THE CHEST. Assessment & Plan - Diagnosis (1) Postoperative wound infection of left hip Qualifiers: Encounter type: initial encounter Qualified Code(s): T81.4XXA - Infection following a procedure, initial encounter; B99.9 - Unspecified infectious disease Is this a current diagnosis for this admission?: YesPlan: Patient had wash out of left hip yesterday afternoon. Wound culture positive for staph, and pseudomonas (2) Bacteremia Is this a current diagnosis for this admission?: YesPlan: 2 blood cultures positive for staph aureus. Antibiotics descalated (3) Diabetes mellitus type 2 in nonobese Is this a current diagnosis for this admission?: YesPlan: Continue current medications and sliding scale coverage (4) Fever Qualifiers: Fever type: unspecified Qualified Code(s): R50.9 - Fever, unspecified Is this a current diagnosis for this admission?: Yes - Time Time Spent with patient: 25-34 minutes Critical Time spent with patient: 15-24 minutes Medications reviewed and adjusted accordingly: Yes Anticipated discharge: SNF
[2016-10-20] MEDS: TRAMADOL HCL 50 MG TABLET PO PRN (18:19)
[2016-10-20] MEDS: ATORVASTATIN CALCIUM 40 MG TABLET PO SCH (21:58)
[2016-10-20] MEDS: QUETIAPINE FUMARATE 25 MG TABLET PO SCH (21:58)
[2016-10-21 04:23] LABS: ABSOLUTE EOSINOPHILS # (AUTO) 0.2 10^3/uL (0.0-0.6); ABSOLUTE LYMPHOCYTES (AUTO) 0.9 10^3/uL (0.5-4.7); ABSOLUTE MONOCYTES (AUTO) 0.5 10^3/uL (0.1-1.4); ABSOLUTE NEUT (AUTO) 5.1 10^3/uL (1.7-8.2); BASOPHILS % (AUTO) 0.3 % (0-2); EOSINOPHILS % (AUTO) 3.1 % (0-6); HEMATOCRIT 25.4 % (36.0-47.0); HEMOGLOBIN 8.6 g/dL (12.0-15.5); HGB HCT DIFFERENCE 0.4; MEAN CORPUSCULAR HEMOGLOBIN 28.7 pg (27.0-33.4); MEAN CORPUSCULAR HGB CONC 33.7 g/dL (32.0-36.0); MEAN CORPUSCULAR VOLUME 85 fl (80-97); MONOCYTES % (AUTO) 7.1 % (3-13); RED BLOOD COUNT 2.99 10^6/uL (3.72-5.28); RED CELL DISTRIBUTION WIDTH 13.7 % (11.5-14.0); SEGMENTED NEUTROPHILS % (AUTO) 75.5 % (42-78); WHITE BLOOD COUNT 6.7 10^3/uL (4.0-10.5)
[2016-10-21 04:34] LABS: ANION GAP 7 (5-19); BLOOD UREA NITROGEN 15 mg/dL (7-20); CALCIUM 8.7 mg/dL (8.4-10.2); CARBON DIOXIDE 24 mmol/L (22-30); CHLORIDE 106 mmol/L (98-107); CREATININE RESULT 0.69 mg/dL (0.52-1.25); GLUCOSE 130 mg/dL (75-110); POTASSIUM 3.9 mmol/L (3.6-5.0); SODIUM 137.2 mmol/L (137-145)
[2016-10-21] MEDS: LEVOTHYROXINE SODIUM 0.15 MG TABLET PO SCH (05:13)
--- NOTE | 2016-10-21 06:40 | PDOC PROGRESS REPORT ---
Subjective Progress Note for:: 10/21/16 Subjective:: Patient resting comfortably Physical Exam Vital Signs: Temp Pulse Resp BP Pulse Ox 36.9 C 79 16 152/72 H 99 10/21/16 03:44 10/21/16 03:44 10/21/16 03:44 10/21/16 03:44 10/21/16 03:44 Intake & Output 10/19/16 10/20/16 10/21/16 06:59 06:59 06:59 Intake Total 3017 49151 850 Output Total 6910 Balance 3017 5927 850 Weight 59.5 kg Extremities exam: PRESENT: other - Scant amount of drainage at the proximal aspect of the picot dressing leg lengths are equal. Results Laboratory Results: 10/21/16 04:00 10/21/16 04:00 10/21/16 10/21/16 04:00 04:00 WBC 6.7 RBC 2.99 L Hgb 8.6 L Hct 25.4 L MCV 85 MCH 28.7 MCHC 33.7 RDW 13.7 Plt Count 440 Seg Neutrophils % 75.5 Lymphocytes % 14.0 Monocytes % 7.1 Eosinophils % 3.1 Basophils % 0.3 Absolute Neutrophils 5.1 Absolute Lymphocytes 0.9 Absolute Monocytes 0.5 Absolute Eosinophils 0.2 Absolute Basophils 0.0 Sodium 137.2 Potassium 3.9 Chloride 106 Carbon Dioxide 24 Anion Gap 7 BUN 15 Creatinine 0.69 Est GFR ( Amer) > 60 Est GFR (Non-Af Amer) > 60 Glucose 130 H Calcium 8.7 10/18/16 06:40 Hip - Left Gram Stain - Final Impressions: Chest X-Ray 10/16/16 22:11 IMPRESSION: NO ACUTE RADIOGRAPHIC FINDING IN THE CHEST. Status: Imported from PACS Assessment & Plan - Diagnosis (1) Postoperative wound infection of left hip Qualifiers: Encounter type: initial encounter Qualified Code(s): T81.4XXA - Infection following a procedure, initial encounter; B99.9 - Unspecified infectious disease Is this a current diagnosis for this admission?: YesPlan: -year-old white female status post left hemiarthroplasty for femoral neck fracture now with perioperative infection growing staph and Pseudomonas. She is now being treated with Levaquin. Patient with physical therapy is relatively slow. [facility] - Time Time Spent with patient: 15-24 minutes Anticipated discharge: SNF Within: Other
[2016-10-21] MEDS: GLIPIZIDE 5 MG TABLET PO SCH (08:32)
[2016-10-21] MEDS: TRAMADOL HCL 50 MG TABLET PO PRN (08:48)
[2016-10-21] MEDS ORDERED: LEVOFLOXACIN 750 MG/D5W RTU 150 ML IV SCH (10:00)
[2016-10-21] MEDS: HEPARIN SOD (PORCINE) 5,000 UNIT/ML 1 ML SYRINGE SUBCUT SCH ×2 (10:09→21:13)
[2016-10-21] MEDS: METOPROLOL TARTRATE 25 MG TABLET PO SCH ×2 (10:30→21:12)
[2016-10-21] MEDS: FAMOTIDINE 20 MG TABLET PO SCH ×2 (10:30→21:13)
[2016-10-21] MEDS: MULTIVITAMIN TABLET PO SCH (10:30)
[2016-10-21] MEDS: SENNOSIDES/DOCUSATE 8.6-50 MG 1 EACH TABLET PO SCH (10:30)
[2016-10-21] MEDS: ISOSORBIDE MONONITRATE 60 MG TAB.ER.24H PO SCH (10:30)
[2016-10-21] MEDS: CLOPIDOGREL BISULFATE 75 MG TABLET PO SCH (10:30)
[2016-10-21] MEDS: MEMANTINE HCL 10 MG TABLET PO SCH ×2 (10:30→21:13)
[2016-10-21] MEDS: CHOLECALCIFEROL (D3) 1,000 UNIT TABLET PO SCH (10:30)
[2016-10-21] MEDS: DOCUSATE SODIUM 100 MG CAPSULE PO SCH ×2 (10:30→19:32)
[2016-10-21] MEDS: LACTOBACILLUS ACIDOPHILUS 250 MG TAB PO SCH ×2 (10:31→19:32)
[2016-10-21] MEDS ORDERED: DEXTROSE 50%-WATER 25 GM/50 ML DISP.SYRIN IV PRN ×2 (10:47)
[2016-10-21] MEDS ORDERED: DEXTROSE 40% GEL 15 GM TUBE PO PRN ×2 (10:47)
[2016-10-21] MEDS ORDERED: GLUCAGON,HUMAN RECOMB 1 MG INJ IM PRN (10:47)
[2016-10-21] MEDS: RISPERIDONE 1 MG TABLET PO SCH ×2 (10:48→21:16)
[2016-10-21] MEDS ORDERED: RISPERIDONE 1 MG TABLET PO SCH (11:00)
[2016-10-21] MEDS ORDERED: RISPERIDONE 1 MG TABLET PO ONE (12:00)
[2016-10-21] MEDS: INSULIN LISPRO 100 UNIT/ML 3 ML VIAL SUBCUT PRN (12:05)
--- NOTE | 2016-10-21 13:17 | PDOC PROGRESS REPORT ---
Subjective Progress Note for:: 10/21/16 Subjective:: Patient seen on morning rounds. She is resting quietly in bed. She is confused to place, time and situation. She does recognize her when he is in the room. She denies any pain at the present time. She denies any shortness of breath or dyspnea. She denies any nausea, vomiting or abdominal pain. is not present in the room at this time. Nursing report moderate- large amount of yellow drainage from the left hip incision and 3 pustules along the incision. Physical Exam Vital Signs: Temp Pulse Resp BP Pulse Ox 98.0 F 75 20 138/63 H 99 10/21/16 11:38 10/21/16 11:38 10/21/16 11:38 10/21/16 11:38 10/21/16 11:38 Intake & Output 10/20/16 10/21/16 10/22/16 06:59 06:59 06:59 Intake Total 53964 850 Output Total 6910 Balance 5927 850 General appearance: PRESENT: no acute distress, thin, well-developed, other - pale Head exam: PRESENT: atraumatic, normocephalic Eye exam: PRESENT: conjunctiva pink, EOMI, PERRLA. ABSENT: scleral icterus Ear exam: PRESENT: normal external ear exam Mouth exam: PRESENT: moist, tongue midline Teeth exam: PRESENT: edentulous Neck exam: ABSENT: carotid bruit, JVD, lymphadenopathy, thyromegaly Respiratory exam: PRESENT: decreased breath sounds, symmetrical, unlabored Cardiovascular exam: PRESENT: RRR. ABSENT: diastolic murmur, rubs, systolic murmur Pulses: PRESENT: normal dorsalis pedis pul Vascular exam: PRESENT: normal capillary refill GI/Abdominal exam: PRESENT: normal bowel sounds, soft. ABSENT: distended, guarding, mass, organolmegaly, rebound, tenderness Rectal exam: PRESENT: deferred Extremities exam: PRESENT: full ROM. ABSENT: calf tenderness, clubbing, pedal edema Musculoskeletal exam: PRESENT: tenderness, other - left hip dressing dry and intact Neurological exam: PRESENT: altered, oriented to person, CN II-XII grossly intact Psychiatric exam: PRESENT: flat affect Skin exam: PRESENT: other - left hip incision Results Laboratory Results: 10/21/16 04:00 10/21/16 04:00 10/21/16 10/21/16 04:00 04:00 WBC 6.7 RBC 2.99 L Hgb 8.6 L Hct 25.4 L MCV 85 MCH 28.7 MCHC 33.7 RDW 13.7 Plt Count 440 Seg Neutrophils % 75.5 Lymphocytes % 14.0 Monocytes % 7.1 Eosinophils % 3.1 Basophils % 0.3 Absolute Neutrophils 5.1 Absolute Lymphocytes 0.9 Absolute Monocytes 0.5 Absolute Eosinophils 0.2 Absolute Basophils 0.0 Sodium 137.2 Potassium 3.9 Chloride 106 Carbon Dioxide 24 Anion Gap 7 BUN 15 Creatinine 0.69 Est GFR ( Amer) > 60 Est GFR (Non-Af Amer) > 60 Glucose 130 H Calcium 8.7 10/18/16 06:40 Hip - Left Gram Stain - Final Impressions: Chest X-Ray 10/16/16 22:11 IMPRESSION: NO ACUTE RADIOGRAPHIC FINDING IN THE CHEST. Assessment & Plan - Diagnosis (1) Postoperative wound infection of left hip Qualifiers: Encounter type: initial encounter Qualified Code(s): T81.4XXA - Infection following a procedure, initial encounter; B99.9 - Unspecified infectious disease Is this a current diagnosis for this admission?: YesPlan: Patient had wash out of left hip on 10/19. Incision is still draining moderate amount yellow drainage. Wound culture positive for staph, and pseudomonas. Spoke to Kareem Hidalgo who recommends of hardware is infectious disease, left in patient will need 6 weeks of IV antibiotic coverage for MSSA. She recommends Zosyn, and they would need suppressive therapy afterwards. Hardware is removed she will need 2 weeks of IV antibiotic coverage for MSSA bacteremia. (2) Bacteremia Is this a current diagnosis for this admission?: YesPlan: As above (3) Diabetes mellitus type 2 in nonobese Is this a current diagnosis for this admission?: YesPlan: Continue current medications and sliding scale coverage (4) Fever Qualifiers: Fever type: unspecified Qualified Code(s): R50.9 - Fever, unspecified Is this a current diagnosis for this admission?: YesPlan: Time IM he called me - Time Time Spent with patient: 25-34 minutes Critical Time spent with patient: 15-24 minutes Medications reviewed and adjusted accordingly: Yes Anticipated discharge: SNF
[2016-10-21] MEDS: PIPERACILLIN SODIUM/TAZOBACTAM 3.375 GM in NORMAL SALINE 100 ML IV SCH ×2 (16:38→20:50)
--- NOTE | 2016-10-21 17:59 | XCELERA REPORT ---
[address] [address] Transthoracic Echocardiogram Report Name: MINESH TROTTER Age: 86 yrs Gender: Female : 1930 Patient Status: Inpatient Patient Location: 5\S\529\S\A Study Date: 10/21/2016 03:02 PM Height: 67 in Weight: 131 lb BSA: 1.7 m2 Procedure: A complete two-dimensional transthoracic echocardiogram was performed (2D, M-mode, spectral and color flow Doppler). The study was technically difficult with many images being suboptimal in quality. Reason For Study: Patient with staph bactermia Ordering Physician: SY PAGAN Performed By: Radha Cervantes Interpretation Summary The study was technically difficult with many images being suboptimal in quality. The left ventricular ejection fraction is normal. There is borderline concentric left ventricular hypertrophy. The left ventricle is grossly normal size. Doppler measurements suggest pseudonormalized left ventricular relaxation, which is associated with grade II/IV or mild to moderate diastolic dysfunction Wall motion cannot be accurately commented on, but no definite regional wall motion abnormalities noted. The right ventricular systolic function is normal. Borderline left atrial enlargement. The right atrium is normal in size There is a moderate amount of mitral regurgitation There is no mitral valve stenosis. No aortic regurgitation is present. There is no aortic valve stenosis There is a trace or physiologic amount of tricuspid regurgitation Tricuspid regurgitation jet envelope not well defined to measure RV systolic pressure accurately. The aortic root is not well visualized but is probably normal size. The inferior vena cava appeared normal and decreased < 50% with respiration (RAP 10-15 mmHg) There is no pericardial effusion. No definite vegetations noted but if clinical suspicion is high, then consider ARDIANA and multiple blood cultures. MMode/2D Measurements \T\ Calculations RVDd: 2.1 cm LVIDd: 5.2 cm FS: 42.6 % Ao root diam: 2.8 cm IVSd: 0.91 cm LVIDs: 3.0 cm EDV(Teich): 126.8 ml LVPWd: 0.87 cm ESV(Teich): 33.7 ml Ao root area: 6.1 cm2 EF(Teich): 73.4 % LA dimension: 3.4 cm Doppler Measurements \T\ Calculations MV E max mary carmen: MV P1/2t max mary carmen: Ao V2 max: LV V1 max P.6 cm/sec 68.1 cm/sec 108.6 cm/sec 2.9 mmHg MV A max mary carmen: MV P1/2t: 78.0 msec Ao max PG: LV V1 max: 72.6 cm/sec 4.7 mmHg 84.9 cm/sec MV E/A: 0.95 MVA(P1/2t): 2.8 cm2 MV dec slope: 255.7 cm/sec2 MV dec time: 0.27 sec PA V2 max: TR max mary carmen: 79.0 cm/sec 240.5 cm/sec PA max PG: TR max P.1 mmHg 2.5 mmHg Left Ventricle The left ventricle is grossly normal size. There is borderline concentric left ventricular hypertrophy. The left ventricular ejection fraction is normal. Doppler measurements suggest pseudonormalized left ventricular relaxation, which is associated with grade II/IV or mild to moderate diastolic dysfunction. Wall motion cannot be accurately commented on, but no definite regional wall motion abnormalities noted. Right Ventricle The right ventricle is grossly normal size. There is normal right ventricular wall thickness. The right ventricular systolic function is normal. Atria The right atrium is normal in size. Borderline left atrial enlargement. Interarterial septum not well visualized and not well dopplered. Cannot comment on ASD/PFO presence. Mitral Valve The mitral valve is grossly normal. There is no mitral valve stenosis. There is a moderate amount of mitral regurgitation. Aortic Valve The aortic valve is grossly normal. There is no aortic valve stenosis. No aortic regurgitation is present. Tricuspid Valve The tricuspid valve is not well visualized secondary to technical limitations. There is no tricuspid stenosis. There is a trace or physiologic amount of tricuspid regurgitation. Tricuspid regurgitation jet envelope not well defined to measure RV systolic pressure accurately. Pulmonic Valve The pulmonic valve is not well visualized. Great Vessels The aortic root is not well visualized but is probably normal size. The inferior vena cava appeared normal and decreased < 50% with respiration (RAP 10-15 mmHg). Effusions There is no pericardial effusion. Incidental Findings No definite vegetations noted but if clinical suspicion is high, then consider ADRIANA and multiple blood cultures. : SY PAGAN > Estella Abernathy
[2016-10-21] MEDS: ATORVASTATIN CALCIUM 40 MG TABLET PO SCH (21:13)
[2016-10-21] MEDS: QUETIAPINE FUMARATE 25 MG TABLET PO SCH (21:16)
[2016-10-22] MEDS: PIPERACILLIN SODIUM/TAZOBACTAM 3.375 GM in NORMAL SALINE 100 ML IV SCH ×4 (03:54→21:47)
[2016-10-22] MEDS: LEVOTHYROXINE SODIUM 0.15 MG TABLET PO SCH (05:50)
[2016-10-22] MEDS: GLIPIZIDE 5 MG TABLET PO SCH (08:46)
[2016-10-22] MEDS: DOCUSATE SODIUM 100 MG CAPSULE PO SCH ×2 (08:51→17:30)
[2016-10-22] MEDS: SENNOSIDES/DOCUSATE 8.6-50 MG 1 EACH TABLET PO SCH (08:51)
[2016-10-22] MEDS: LACTOBACILLUS ACIDOPHILUS 250 MG TAB PO SCH ×2 (08:51→17:30)
[2016-10-22] MEDS: MEMANTINE HCL 10 MG TABLET PO SCH ×2 (08:51→21:46)
[2016-10-22] MEDS: METOPROLOL TARTRATE 25 MG TABLET PO SCH ×2 (08:52→21:53)
[2016-10-22] MEDS: ISOSORBIDE MONONITRATE 60 MG TAB.ER.24H PO SCH (08:52)
[2016-10-22] MEDS: FAMOTIDINE 20 MG TABLET PO SCH ×2 (08:52→21:46)
[2016-10-22] MEDS: CHOLECALCIFEROL (D3) 1,000 UNIT TABLET PO SCH (08:53)
[2016-10-22] MEDS: HEPARIN SOD (PORCINE) 5,000 UNIT/ML 1 ML SYRINGE SUBCUT SCH ×2 (09:03→21:47)
[2016-10-22] MEDS: MULTIVITAMIN TABLET PO SCH (09:07)
[2016-10-22] MEDS: RISPERIDONE 1 MG TABLET PO SCH ×2 (09:07→21:47)
[2016-10-22] MEDS: QUETIAPINE FUMARATE 25 MG TABLET PO SCH (21:46)
[2016-10-22] MEDS: ATORVASTATIN CALCIUM 40 MG TABLET PO SCH (21:47)
[2016-10-23] MEDS: PIPERACILLIN SODIUM/TAZOBACTAM 3.375 GM in NORMAL SALINE 100 ML IV SCH ×4 (03:00→21:00)
[2016-10-23] MEDS: LEVOTHYROXINE SODIUM 0.15 MG TABLET PO SCH (05:34)
--- NOTE | 2016-10-23 07:50 | PDOC PROGRESS REPORT ---
Subjective Progress Note for:: 10/22/16 Subjective:: Patient seen on morning rounds. She is resting quietly in bed. She is confused to place, time and situation. She does recognize her when he is in the room. She denies any pain at the present time. She denies any shortness of breath or dyspnea. She denies any nausea, vomiting or abdominal pain. is not present in the room at this time. Nursing denies any issues overnight. Physical Exam Vital Signs: Temp Pulse Resp BP Pulse Ox 98.7 F 80 15 167/66 H 99 10/23/16 07:11 10/23/16 07:11 10/23/16 07:11 10/23/16 07:11 10/23/16 07:11 Intake & Output 10/22/16 10/23/16 10/24/16 06:59 06:59 06:59 Intake Total 1050 991 Output Total 2 Balance 1048 991 Weight 59.7 kg General appearance: PRESENT: no acute distress, thin, well-developed, other - pale Head exam: PRESENT: atraumatic, normocephalic Eye exam: PRESENT: conjunctiva pink, EOMI, PERRLA. ABSENT: scleral icterus Ear exam: PRESENT: normal external ear exam Mouth exam: PRESENT: moist, tongue midline Neck exam: ABSENT: carotid bruit, JVD, lymphadenopathy, thyromegaly Respiratory exam: PRESENT: clear to auscultation george. ABSENT: rales, rhonchi, wheezes Cardiovascular exam: PRESENT: RRR. ABSENT: diastolic murmur, rubs, systolic murmur Pulses: PRESENT: normal dorsalis pedis pul Vascular exam: PRESENT: normal capillary refill GI/Abdominal exam: PRESENT: normal bowel sounds, soft. ABSENT: distended, guarding, mass, organolmegaly, rebound, tenderness Rectal exam: PRESENT: deferred Extremities exam: PRESENT: full ROM. ABSENT: calf tenderness, clubbing, pedal edema Musculoskeletal exam: PRESENT: tenderness - left hip incision Neurological exam: PRESENT: alert, altered, oriented to person, CN II-XII grossly intact Psychiatric exam: PRESENT: flat affect Skin exam: PRESENT: dry, intact, pallor - left hip dressing intact, warm, other. ABSENT: cyanosis, rash Results Laboratory Results: 10/21/16 04:00 10/21/16 04:00 Impressions: Chest X-Ray 10/16/16 22:11 IMPRESSION: NO ACUTE RADIOGRAPHIC FINDING IN THE CHEST. Assessment & Plan - Diagnosis (1) Postoperative wound infection of left hip Qualifiers: Encounter type: initial encounter Qualified Code(s): T81.4XXA - Infection following a procedure, initial encounter; B99.9 - Unspecified infectious disease Is this a current diagnosis for this admission?: YesPlan: Patient had wash out of left hip on 10/19. Incision is still draining moderate amount yellow drainage. Wound culture positive for staph, and pseudomonas. Spoke to Kareem Hidalgo who recommends of hardware is infectious disease, left in patient will need 6 weeks of IV antibiotic coverage for MSSA. She recommends Zosyn, and they would need suppressive therapy afterwards. Hardware is removed she will need 2 weeks of IV antibiotic coverage for MSSA bacteremia. (2) Bacteremia Is this a current diagnosis for this admission?: YesPlan: Second set of blood cultures show no growth at 48hrs. Plan for PICC line insertion on Monday for 6 weeks of antibiotics (3) Diabetes mellitus type 2 in nonobese Is this a current diagnosis for this admission?: YesPlan: Continue current medications and sliding scale coverage (4) Fever Qualifiers: Fever type: unspecified Qualified Code(s): R50.9 - Fever, unspecified Is this a current diagnosis for this admission?: YesPlan: Resolved - Time Time Spent with patient: 25-34 minutes Critical Time spent with patient: 15-24 minutes Medications reviewed and adjusted accordingly: Yes Anticipated discharge: SNF
[2016-10-23] MEDS: GLIPIZIDE 5 MG TABLET PO SCH (08:02)
[2016-10-23] MEDS: RISPERIDONE 1 MG TABLET PO SCH ×2 (09:21→21:46)
[2016-10-23] MEDS: DOCUSATE SODIUM 100 MG CAPSULE PO SCH ×2 (09:21→17:07)
[2016-10-23] MEDS: SENNOSIDES/DOCUSATE 8.6-50 MG 1 EACH TABLET PO SCH (09:21)
[2016-10-23] MEDS: METOPROLOL TARTRATE 25 MG TABLET PO SCH ×2 (09:22→21:46)
[2016-10-23] MEDS: CLOPIDOGREL BISULFATE 75 MG TABLET PO SCH (09:22)
[2016-10-23] MEDS: FAMOTIDINE 20 MG TABLET PO SCH ×2 (09:23→21:46)
[2016-10-23] MEDS: ISOSORBIDE MONONITRATE 60 MG TAB.ER.24H PO SCH (09:24)
[2016-10-23] MEDS: CHOLECALCIFEROL (D3) 1,000 UNIT TABLET PO SCH (09:24)
[2016-10-23] MEDS: MEMANTINE HCL 10 MG TABLET PO SCH ×2 (09:24→21:46)
[2016-10-23] MEDS: LACTOBACILLUS ACIDOPHILUS 250 MG TAB PO SCH ×2 (09:24→17:07)
[2016-10-23] MEDS: MULTIVITAMIN TABLET PO SCH (09:24)
[2016-10-23] MEDS: TRAMADOL HCL 50 MG TABLET PO PRN ×2 (09:28→22:21)
[2016-10-23] MEDS: INSULIN LISPRO 100 UNIT/ML 3 ML VIAL SUBCUT PRN (16:26)
[2016-10-23] MEDS: ATORVASTATIN CALCIUM 40 MG TABLET PO SCH (21:46)
[2016-10-23] MEDS: QUETIAPINE FUMARATE 25 MG TABLET PO SCH (21:46)
[2016-10-24] MEDS: PIPERACILLIN SODIUM/TAZOBACTAM 3.375 GM in NORMAL SALINE 100 ML IV SCH ×4 (02:05→21:10)
[2016-10-24 04:49] LABS: ABSOLUTE BASOPHILS # (AUTO) 0.1 10^3/uL (0.0-0.2); ABSOLUTE EOSINOPHILS # (AUTO) 0.3 10^3/uL (0.0-0.6); ABSOLUTE LYMPHOCYTES (AUTO) 1.2 10^3/uL (0.5-4.7); ABSOLUTE MONOCYTES (AUTO) 0.5 10^3/uL (0.1-1.4); ABSOLUTE NEUT (AUTO) 5.2 10^3/uL (1.7-8.2); BASOPHILS % (AUTO) 0.8 % (0-2); EOSINOPHILS % (AUTO) 3.5 % (0-6); HEMATOCRIT 24.6 % (36.0-47.0); HEMOGLOBIN 8.2 g/dL (12.0-15.5); LYMPHOCYTES % (AUTO) 16.1 % (13-45); MEAN CORPUSCULAR HEMOGLOBIN 28.7 pg (27.0-33.4); MEAN CORPUSCULAR HGB CONC 33.2 g/dL (32.0-36.0); MEAN CORPUSCULAR VOLUME 87 fl (80-97); MONOCYTES % (AUTO) 7.6 % (3-13); RED BLOOD COUNT 2.85 10^6/uL (3.72-5.28); RED CELL DISTRIBUTION WIDTH 14.1 % (11.5-14.0); WHITE BLOOD COUNT 7.2 10^3/uL (4.0-10.5)
[2016-10-24 04:56] LABS: ANION GAP 9 (5-19); BLOOD UREA NITROGEN 14 mg/dL (7-20); CALCIUM 8.3 mg/dL (8.4-10.2); CARBON DIOXIDE 26 mmol/L (22-30); CHLORIDE 105 mmol/L (98-107); CREATININE RESULT 1.03 mg/dL (0.52-1.25); GLUCOSE 138 mg/dL (75-110); POTASSIUM 3.8 mmol/L (3.6-5.0); SODIUM 139.6 mmol/L (137-145)
[2016-10-24] MEDS: LEVOTHYROXINE SODIUM 0.15 MG TABLET PO SCH (05:32)
[2016-10-24] MEDS: RISPERIDONE 1 MG TABLET PO SCH ×2 (09:08→21:10)
[2016-10-24] MEDS: GLIPIZIDE 5 MG TABLET PO SCH (09:08)
[2016-10-24] MEDS: METOPROLOL TARTRATE 25 MG TABLET PO SCH ×2 (09:09→21:10)
[2016-10-24] MEDS: ISOSORBIDE MONONITRATE 60 MG TAB.ER.24H PO SCH (09:09)
[2016-10-24] MEDS: SENNOSIDES/DOCUSATE 8.6-50 MG 1 EACH TABLET PO SCH (09:10)
[2016-10-24] MEDS: LACTOBACILLUS ACIDOPHILUS 250 MG TAB PO SCH ×2 (09:10→16:55)
[2016-10-24] MEDS: FAMOTIDINE 20 MG TABLET PO SCH ×2 (09:10→21:09)
[2016-10-24] MEDS: DOCUSATE SODIUM 100 MG CAPSULE PO SCH ×2 (09:11→16:55)
[2016-10-24] MEDS: MULTIVITAMIN TABLET PO SCH (09:11)
[2016-10-24] MEDS: MEMANTINE HCL 10 MG TABLET PO SCH ×2 (09:11→21:10)
[2016-10-24] MEDS: CHOLECALCIFEROL (D3) 1,000 UNIT TABLET PO SCH (09:11)
--- NOTE | 2016-10-24 11:28 | PDOC PROGRESS REPORT ---
Subjective Progress Note for:: 10/24/16 Subjective:: Patient seen on morning rounds. She is resting quietly in bed. She is confused to place, time and situation. She does recognize her when he is in the room. She denies any pain at the present time. She denies any shortness of breath or dyspnea. She denies any nausea, vomiting or abdominal pain. is not present in the room at this time. Nursing denies any issues overnight. Physical Exam Vital Signs: Temp Pulse Resp BP Pulse Ox 98.8 F 79 20 140/57 H 98 10/24/16 07:47 10/24/16 07:47 10/24/16 07:47 10/24/16 07:47 10/24/16 07:47 Intake & Output 10/23/16 10/24/16 10/25/16 06:59 06:59 06:59 Intake Total 991 1090 Balance 991 1090 Weight 59.7 kg General appearance: PRESENT: no acute distress, thin, well-developed, other - pale Head exam: PRESENT: atraumatic, normocephalic Eye exam: PRESENT: conjunctiva pale Ear exam: PRESENT: normal external ear exam Mouth exam: PRESENT: moist, tongue midline Neck exam: ABSENT: carotid bruit, JVD, lymphadenopathy, thyromegaly Respiratory exam: PRESENT: clear to auscultation george. ABSENT: rales, rhonchi, wheezes Cardiovascular exam: PRESENT: RRR. ABSENT: diastolic murmur, rubs, systolic murmur Pulses: PRESENT: normal dorsalis pedis pul Vascular exam: PRESENT: normal capillary refill GI/Abdominal exam: PRESENT: normal bowel sounds, soft. ABSENT: distended, guarding, mass, organolmegaly, rebound, tenderness Rectal exam: PRESENT: deferred Extremities exam: PRESENT: full ROM. ABSENT: calf tenderness, clubbing, pedal edema Musculoskeletal exam: PRESENT: full ROM - left hip, tenderness Neurological exam: PRESENT: alert, altered, oriented to person, CN II-XII grossly intact Psychiatric exam: PRESENT: flat affect Skin exam: PRESENT: dry, intact, warm, other - left hip dressing intact. ABSENT : cyanosis, rash Results Laboratory Results: 10/24/16 03:33 10/24/16 03:33 10/24/16 10/24/16 03:33 03:33 WBC 7.2 RBC 2.85 L Hgb 8.2 L Hct 24.6 L MCV 87 MCH 28.7 MCHC 33.2 RDW 14.1 H Plt Count 488 H Seg Neutrophils % 72.0 Lymphocytes % 16.1 Monocytes % 7.6 Eosinophils % 3.5 Basophils % 0.8 Absolute Neutrophils 5.2 Absolute Lymphocytes 1.2 Absolute Monocytes 0.5 Absolute Eosinophils 0.3 Absolute Basophils 0.1 Sodium 139.6 Potassium 3.8 Chloride 105 Carbon Dioxide 26 Anion Gap 9 BUN 14 Creatinine 1.03 Est GFR ( Amer) > 60 Est GFR (Non-Af Amer) 51 L Glucose 138 H Calcium 8.3 L 10/19/16 17:12 Hip - Left Gram Stain - Final 10/19/16 17:12 Hip - Left Wound Culture - Final Staphylococcus Aureus Pseudomonas Aeruginosa No Anaerobic Organisms Impressions: Chest X-Ray 10/16/16 22:11 IMPRESSION: NO ACUTE RADIOGRAPHIC FINDING IN THE CHEST. Assessment & Plan - Diagnosis (1) Postoperative wound infection of left hip Qualifiers: Encounter type: initial encounter Qualified Code(s): T81.4XXA - Infection following a procedure, initial encounter; B99.9 - Unspecified infectious disease Is this a current diagnosis for this admission?: YesPlan: Patient had wash out of left hip on 10/19. Incision is still draining moderate amount yellow drainage. Wound culture positive for staph, and pseudomonas. Spoke to Kareem Hidalgo who recommends of hardware is infectious disease, left in patient will need 6 weeks of IV antibiotic coverage for MSSA. She recommends Zosyn, and they would need suppressive therapy afterwards. Hardware is removed she will need 2 weeks of IV antibiotic coverage for MSSA bacteremia. (2) Bacteremia Is this a current diagnosis for this admission?: YesPlan: Second set of blood cultures show no growth at 48hrs. Plan for PICC line insertion on Monday for 6 weeks of antibiotics (3) Diabetes mellitus type 2 in nonobese Is this a current diagnosis for this admission?: YesPlan: Continue current medications and sliding scale coverage (4) Fever Qualifiers: Fever type: unspecified Qualified Code(s): R50.9 - Fever, unspecified Is this a current diagnosis for this admission?: YesPlan: Resolved (5) Acute blood loss as cause of postoperative anemia Is this a current diagnosis for this admission?: YesPlan: Patient has been transfused one unit of PRBCs (6) Hypothyroid Qualifiers: Hypothyroidism type: unspecified Qualified Code(s): E03.9 - Hypothyroidism, unspecified Is this a current diagnosis for this admission?: YesPlan: Continue synthroid - Time Time Spent with patient: 25-34 minutes Critical Time spent with patient: 15-24 minutes Medications reviewed and adjusted accordingly: Yes Anticipated discharge: SNF
[2016-10-24] MEDS: INSULIN LISPRO 100 UNIT/ML 3 ML VIAL SUBCUT PRN (16:53)
[2016-10-24] MEDS: ATORVASTATIN CALCIUM 40 MG TABLET PO SCH (21:10)
[2016-10-24] MEDS: QUETIAPINE FUMARATE 25 MG TABLET PO SCH (21:10)
[2016-10-25] MEDS: PIPERACILLIN SODIUM/TAZOBACTAM 3.375 GM in NORMAL SALINE 100 ML IV SCH ×4 (04:48→21:17)
[2016-10-25] MEDS: LEVOTHYROXINE SODIUM 0.15 MG TABLET PO SCH (05:29)
[2016-10-25] MEDS: GLIPIZIDE 5 MG TABLET PO SCH (07:55)
[2016-10-25] MEDS: FAMOTIDINE 20 MG TABLET PO SCH ×2 (09:02→21:17)
[2016-10-25] MEDS: SENNOSIDES/DOCUSATE 8.6-50 MG 1 EACH TABLET PO SCH (09:02)
[2016-10-25] MEDS: MEMANTINE HCL 10 MG TABLET PO SCH ×2 (09:02→21:17)
[2016-10-25] MEDS: CHOLECALCIFEROL (D3) 1,000 UNIT TABLET PO SCH (09:02)
[2016-10-25] MEDS: LACTOBACILLUS ACIDOPHILUS 250 MG TAB PO SCH ×2 (09:02→17:42)
[2016-10-25] MEDS: ISOSORBIDE MONONITRATE 60 MG TAB.ER.24H PO SCH (09:02)
[2016-10-25] MEDS: CLOPIDOGREL BISULFATE 75 MG TABLET PO SCH (09:03)
[2016-10-25] MEDS: DOCUSATE SODIUM 100 MG CAPSULE PO SCH ×2 (09:03→17:42)
[2016-10-25] MEDS: RISPERIDONE 1 MG TABLET PO SCH ×2 (09:03→21:17)
[2016-10-25] MEDS: MULTIVITAMIN TABLET PO SCH (09:03)
[2016-10-25] MEDS: METOPROLOL TARTRATE 25 MG TABLET PO SCH ×2 (09:04→21:16)
[2016-10-25] MEDS: INSULIN LISPRO 100 UNIT/ML 3 ML VIAL SUBCUT PRN (12:46)
--- NOTE | 2016-10-25 13:10 | RADIOLOGY REPORT (SQ) ---
EXAM DESCRIPTION: PICC INSERTION; FLUORO/CV PLACEMENT; U/S GUIDE FOR VASCULAR ACCESS COMPLETED DATE/TIME: 10/25/2016 12:11 pm REASON FOR STUDY: 6 weeks IV antibiotics; 6 WEEKS IV ABX; IV ACCESS COMPARISON: AP chest 10/16/2016 FLUOROSCOPY TIME: 28 seconds 1 ultrasound and 1 digital radiographic chest images saved to PACS. TECHNIQUE: Fluoroscopic and ultrasound guided PICC placement. LIMITATIONS: None. PROCEDURE: After written consent and assessment were obtained, the patient was brought into the fluo roscopy room and place supine on the table. Ultrasound was used on the patient's right arm for PICC access. The right arm was prepped and draped in a sterile fashion along with the ultrasound probe. Th e entry site was anesthetized with 2 mL of 1% lidocaine. A 21 gauge 7 cm needle was advanced through the skin and into the right basilic vein under live ultrasound guidance. An ultrasound image was salty ed to PACS confirming access site. A .018 guide wire was then inserted through the needle and into t he venous system. The needle was the removed and an 11 blade scalpel was used to make a 1cm skin inci dima. A 5 fr peel-away sheath was advanced over the wire and into the venous system. A measurement w as then made using the existing wire and live fluoroscopic guidance. The wire was then removed and th e trimmed. The PICC was advanced through the peel-away sheath and into the venous system. The peel-aw ay sheath was removed and the catheter was adhered to the patients arm with a stat lock. The catheter was then aspirated and flushed and a sterile bandage was placed over the access site. A fluoroscopi c spot image was saved to PACS confirming the catheter tip within the superior vena cava. IMPRESSION: SUCCESSFUL PLACEMENT OF A 5 FR DUAL LUMEN 34 CM PICC IN THE right basilic VEIN. COMMENT: Patient medication list reviewed: Yes- Quality ID# [id number]:Eligible professional attests to doc umenting in the medical record they obtained, updated, or reviewed the patient's current medications. . Quality ID 145: Final reports for procedures using fluoroscopy that document radiation exposure nicolas jimy, or exposure time and number of fluorographic images (if radiation exposure indices are not avail able) Quality ID #[id number]: The patient was prepped and draped using maximum sterile barrier technique including cap, mask, sterile gown, sterile gloves, a large sterile sheet, hand hygiene, and 2% Chlorhexidine fo r cutaneous antisepsis. When ultrasound is used, sterile ultrasound techniques are followed requiring sterile gel and sterile probes. TECHNICAL DOCUMENTATION: JOB ID: [id number] [employer]- All Rights Reserved
[2016-10-25] MEDS ORDERED: NORMAL SALINE 10 ML SDV (AFTER EACH USE) IV PRN (14:37)
--- NOTE | 2016-10-25 17:43 | PROGRESS NOTE E ---
Progress Note NAME: MINESH TROTTER : 1930 AGE: 86Y DATE: 10/25/2016 ROOM: 529 SUBJECTIVE: The patient is lying in bed. She is to have a PICC placement. The patient is not very responsive to me which this is not far from the patient's baseline. The patient's is present at bedside, active in the patient's care. The patient has had no reported episodes of vomiting nor diarrhea. The patient is not able to voice any concerns at this time. REVIEW OF SYSTEMS: Rest of review of systems cannot be obtained given the patient's mental status. MEDICATIONS: Medications have been reviewed. OBJECTIVE: GENERAL: The patient is an 86-year-old female who is awake, alert but is minimally responsive. Does not appear to be in any acute distress. VITAL SIGNS: Temperature is 97.2, pulse 69, respirations 13, blood pressure 135/63, oxygen saturation is 100% on room air. SKIN: Warm and dry. No rashes. Not diaphoretic. HEENT: Pupils equal, round and reactive to light and accommodation. Conjunctivae is pale. There is no JVD. CARDIOVASCULAR: Heart is regular. There is no murmur or rub. CHEST: Clear, symmetrical, unlabored. ABDOMEN: Soft, nontender, nondistended. BACK: No CVA tenderness or sacral edema. EXTREMITIES: No clubbing, cyanosis or edema. PSYCHIATRIC: Unable to fully assess. DIAGNOSTICS: Lab values are as follows: Hematology obtained on 10/24/2016: WBC's 7.2, hemoglobin 8.9, hematocrit 24.6, and platelet count is 488,000. Chemistry obtained on 10/24/2016: Sodium 139, potassium 3.9, chloride is 105, carbon dioxide 26, BUN 14, creatinine is 1.03, glucose 138, calcium 8.3. Microbiology: Blood culture obtained on 10/20/2016 revealed no growth. IMPRESSION AND PLAN: 1. POSTOPERATIVE WOUND INFECTION ON THE LEFT HIP. The patient had a washout on 10/19/2016. Incision is still draining. Wound culture positive for Staph pseudomonas. The case has been discussed with Dr. Foster at [facility] who recommends if hardware is left in place the patient will need 6 weeks of IV antibiotic coverage for MRSA. She recommends Zosyn and would need suppressive therapy after hardware is removed. She will need 2 weeks of antibiotic therapy for MSSA bacteremia. 2. BACTEREMIA. Second set of blood cultures read no growth at 48 hours. Patient is to have PICC line today. 3. DIABETES MELLITUS TYPE 2. Continue sliding scale coverage. 4. FEVER. This has resolved. 5. ACUTE BLOOD LOSS OF POSTOPERATIVE ANEMIA. Patient has been transfused 1 unit of packed red blood cells. 6. HYPERTHYROIDISM. Will continue Synthroid. 7. DEMENTIA. The patient is at baseline. DISPOSITION: THE PATIENT IS A DO NOT RESUSCITATE DO NOT INTUBATE. Pending the patient's symptomatology and diagnostic findings, the patient most likely can go to rehab in the a.m. Time spent on this followup, including assessment/plan, physical examination, attempted patient education, is 20 minutes. DICTATING PHYSICIAN: SORAIDA LONGORIA NP [id number] PHY#: [id number] ID: [id number] JOB#: [id number] ACCT: [id number] cc: > MTDD
[2016-10-25] MEDS: NORMAL SALINE 10 ML SDV (SCHEDULED) IV SCH (21:16)
[2016-10-25] MEDS: QUETIAPINE FUMARATE 25 MG TABLET PO SCH (21:17)
[2016-10-25] MEDS: ATORVASTATIN CALCIUM 40 MG TABLET PO SCH (21:17)
[2016-10-26] MEDS: PIPERACILLIN SODIUM/TAZOBACTAM 3.375 GM in NORMAL SALINE 100 ML IV SCH ×2 (03:28→08:32)
[2016-10-26] MEDS: LEVOTHYROXINE SODIUM 0.15 MG TABLET PO SCH (05:23)
--- NOTE | 2016-10-26 06:48 | TRANSFER SUMMARY E ---
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 OPERATIVE ORTHOPEDIST: Aldo Felipe MD, Ph.D. PRIMARY CARE PROVIDER: Main Philippe MD DISCHARGE DIAGNOSES: 1. Postoperative wound infection of the left hip of Pseudomonas and MSSA. 2. MSSA bacteremia secondary to #1. 3. Diabetes mellitus type 2. 4. Postoperative anemia/acute blood loss anemia. 5. Hypothyroidism. 6. Dementia. 7. General debility. TRANSFER MEDICATIONS: 1. Zosyn 3.375 g IV every 6 hours for a total of 6 weeks, start date was 10/21/2016. 2. Lipitor 40 mg p.o. nightly. 3. Multivitamin 1 tablet p.o. daily. 4. Vitamin D3, 1000 units p.o. daily. 5. Plavix 75 mg p.o. every 48 hours. 6. Glucotrol 5 mg p.o. every morning. 7. Humalog sliding scale coverage a.c. and hours of sleep. 8. Imdur 60 mg p.o. daily. 9. Synthroid 0.15 mg p.o. daily. 10. Namenda 10 mg p.o. every 12 hours. 11. Lopressor 12.5 mg p.o. every 12 hours. 12. Seroquel 25 mg p.o. nightly. 13. Zantac 75 mg p.o. b.i.d. 14. Risperdal 1 mg p.o. every 12 hours. 15. Senna Plus 8.6/50 mg 1 tablet p.o. daily. DIET: Regular diet with mechanical soft ground meats and regular liquids. ACTIVITY: As per rehab standard. HISTORY OF PRESENT ILLNESS: The patient is an 86-year-old female with a past medical history of dementia and recent hip fracture. The patient presented to the emergency department via EMS from [facility] with a chief complaint of fever. The patient was status post surgical repair of her left femoral neck fracture on 10/02/2016. The patient underwent operative repair and was discharged to [facility]. However, upon presentation the patient was found to have a temperature of 103.3, but no other symptoms. No evidence of vomiting nor diarrhea. No shortness of breath, cough or sputum production. The patient was also noted to be slightly dehydrated and was given IV fluids. The patient was cultured and was referred to the hospitalists for admission and management. HOSPITAL COURSE: The patient was admitted to continuous telemetry unit. The patient was seen and evaluated by orthopedics and given the patient's drainage of her wound site, it was felt that she did have an infection of her left hip wound. The patient had increasing purulent drainage and on 10/19/2016, the patient underwent wash out in the OR. The patient's blood culture did reveal an MSSA staph which was consistent with the patient's hip wound as well as the hip wound was also growing Pseudomonas. The case was discussed with [facility], Dr. Watson and recommendations were made for a total of 6 weeks of IV antibiotic therapy with Zosyn. The patient underwent a PIC line placement on 10/25/2016 without issue and the patient will be returned to rehab. DIAGNOSTICS: 1. Lab values are as follows: a. Hematology obtained on 10/24/2016: WBC 7.2, hemoglobin 10.2, hematocrit 24.6, platelet count 488,000. b. Chemistry obtained on 10/24/2016: Sodium 139, potassium 4.8, chloride 105, carbon dioxide 26, BUN 14, creatinine 1.03, glucose 137, calcium 8.3. c. Microbiology: Blood cultures obtained on 10/16/2016 reveal Staph aureus d. Wound culture obtained on 10/16/2016 reveals Pseudomonas and Staph aureus. e. Blood culture obtained on 10/20/2016 reveal no growth. 2. Chest x-ray obtained on 10/16/2016 reveals no acute radiographic finding of the chest. PHYSICAL EXAMINATION: GENERAL: On examination, the patient is a frail, chronically ill-appearing, 86-year-old female who will awaken, but is demented. Does not appear to be in any acute distress. VITAL SIGNS: As follows: Temperature is 98.2, pulse 67, respirations 16, blood pressure 156/65, oxygen saturation 97% on room air. SKIN: Pale and dry. No rash. Not diaphoretic. HEENT: Pupils are equal, round and reactive to light and accommodation. Conjunctivae are pale. There is no JVD. CARDIOVASCULAR: Heart is regular without murmur or rub. CHEST: Clear, symmetrical, unlabored. ABDOMEN: Soft, nontender, nondistended. BACK: No CVA tenderness or sacral edema. EXTREMITIES: No clubbing or cyanosis. No pitting edema. Pedal pulses +1 noted bilaterally. Extremities appropriately warm to the touch. PSYCHIATRIC: Unable to fully assess. NEUROLOGICAL: Unable to cooperate for examination. DISCHARGE PLANNING: The patient is advised to follow up with orthopedics within 7 to 10 days for hospital followup. TIME SPENT: Time spent on this transfer including assessment, plan, physical examination, attempted patient education and resource alignment was 35 minutes. DICTATING PHYSICIAN: MAIN LONGORIA NP [id number] PHY#: [id number] ID: [id number] JOB#: [id number] ACCT: [id number] cc:MAIN LONGORIA NP >
[2016-10-26] MEDS: GLIPIZIDE 5 MG TABLET PO SCH (08:32)
[2016-10-26] MEDS: MULTIVITAMIN TABLET PO SCH (10:14)
[2016-10-26] MEDS: SENNOSIDES/DOCUSATE 8.6-50 MG 1 EACH TABLET PO SCH (10:14)
[2016-10-26] MEDS: RISPERIDONE 1 MG TABLET PO SCH (10:15)
[2016-10-26] MEDS: MEMANTINE HCL 10 MG TABLET PO SCH (10:15)
[2016-10-26] MEDS: ISOSORBIDE MONONITRATE 60 MG TAB.ER.24H PO SCH (10:15)
[2016-10-26] MEDS: LACTOBACILLUS ACIDOPHILUS 250 MG TAB PO SCH (10:15)
[2016-10-26] MEDS: FAMOTIDINE 20 MG TABLET PO SCH (10:15)
[2016-10-26] MEDS: METOPROLOL TARTRATE 25 MG TABLET PO SCH (10:15)
[2016-10-26] MEDS: CHOLECALCIFEROL (D3) 1,000 UNIT TABLET PO SCH (10:15)
[2016-10-26] MEDS: DOCUSATE SODIUM 100 MG CAPSULE PO SCH (10:15)
[2016-10-26] MEDS: NORMAL SALINE 10 ML SDV (SCHEDULED) IV SCH (10:16)
[2016-10-26 11:41] VITALS: BP 139/63
== END 2016-10-26 14:20 | DRG 857 ==
LOC: ER 21:38 → EH 10-17 00:33 → UNDOADMIN 10-17 00:33 → EH 10-17 01:47 → 5 10-17 03:03
PROVIDERS: ADMIT Family Medicine; ATTEND Family Medicine
PROC: 0JDM3ZZ Extraction of Left Upper Leg Subcutaneous Tissue and Fascia, Percutaneous Approach (ICD-10-PCS; principal; 2016-10-19 16:00)
PROC: 02HV33Z Insertion of Infusion Device into Superior Vena Cava, Percutaneous Approach (ICD-10-PCS; 2016-10-25)
PROC: B5181ZA Fluoroscopy of Superior Vena Cava using Low Osmolar Contrast, Guidance (ICD-10-PCS; 2016-10-25)
PROC: B548ZZA Ultrasonography of Superior Vena Cava, Guidance (ICD-10-PCS; 2016-10-25)
DX: T81.4XXA Infection following a procedure, initial encounter (principal); R78.81 Bacteremia; D62 Acute posthemorrhagic anemia; N17.9 Acute kidney failure, unspecified; B96.5 Pseudomonas (aeruginosa) (mallei) (pseudomallei) as the cause of diseases classified elsewhere; B95.61 Methicillin susceptible Staphylococcus aureus infection as the cause of diseases classified elsewhere; I50.9 Heart failure, unspecified; E03.9 Hypothyroidism, unspecified; E11.9 Type 2 diabetes mellitus without complications; F03.90 Unspecified dementia, unspecified severity, without behavioral disturbance, psychotic disturbance, mood disturbance, and anxiety; I25.10 Atherosclerotic heart disease of native coronary artery without angina pectoris; M19.90 Unspecified osteoarthritis, unspecified site; K21.9 Gastro-esophageal reflux disease without esophagitis; K44.9 Diaphragmatic hernia without obstruction or gangrene; Z79.4 Long term (current) use of insulin; Z79.899 Other long term (current) drug therapy; Z66 Do not resuscitate; Z85.828 Personal history of other malignant neoplasm of skin; Z95.5 Presence of coronary angioplasty implant and graft; Z88.6 Allergy status to analgesic agent; Z88.8 Allergy status to other drugs, medicaments and biological substances; Z91.013 Allergy to seafood
CPT/HCPCS: 00400; 36415; 36430; 36569; 51701; 71010; 76937; 77001; 80048; 80053; 80202; 81001; 82565; 82803; 82962; 83605; 83735; 85025; 85652; 86140; 86850; 86870; 86900; 86901; 86920; 86922; 87040; 87070; 87075; 87077; 87086; 87186; 87205; 93306; 96365; 99285; G8978-GP; G8979-GP; J0690; J1642; J1644; J1815; J1956; J2543; J2704; J3370; J3490; J7030; J7060; J7120; P9016

== ENCOUNTER 2016-10-28 02:47 | Emergency (ER) | payer MEDICARE ==
[2016-10-28] MEDS ORDERED: BACITRACIN ZINC OINTMENT 15 GM TP ONE (04:49)
--- NOTE | 2016-10-28 04:50 | ER Document Report ---
ED General - General Chief Complaint: pulled picc line out Stated Complaint: PULLED PIC LINE OUT Time Seen by Provider: 10/28/16 04:33 Mode of Arrival: Carried Cannot obtain history due to: Dementia TRAVEL OUTSIDE OF THE [place]. IN LAST 30 DAYS: No - HPI Notes: Patient is a 86-year-old female comes from local [facility], [place], with report that she was started on Zosyn for a postoperative left hip infection that grew MSSA and Pseudomonas and was started on antibiotics on 10/21/16 for a [address] of a PICC line. The patient removed her PICC line earlier this evening from the right arm. She denies any chest pain or numbness or paresthesia or other injury. She presents for assessment of the PICC line site and for replacement of PICC line or other access. - Related Data Allergies/Adverse Reactions: adhesive tape [Adhesive Tape] Allergy (Verified 09/30/16 23:24) alatrofloxacin mesylate [From Trovan] Allergy (Verified 09/30/16 23:24) aspirin [Aspirin] Allergy (Verified 09/30/16 23:24) codeine [Codeine] Allergy (Verified 09/30/16 23:24) diazepam [From Valium] Allergy (Verified 09/30/16 23:24) morphine [Morphine] Allergy (Verified 09/30/16 23:24) oxycodone [Oxycodone] Allergy (Verified 09/30/16 23:24) Shellfish * [Shellfish] Allergy (Verified 09/30/16 23:24) trovafloxacin mesylate [From Trovan] Allergy (Verified 09/30/16 23:24) darvel Allergy (Uncoded 09/30/16 23:24) dust Allergy (Uncoded 09/30/16 23:24) mold Allergy (Uncoded 09/30/16 23:24) steroids Allergy (Uncoded 09/30/16 23:24) Past Medical History - General Information source: Patient, Emergency Med Personnel, Outside Facility Records Cannot obtain history due to: Dementia - Social History Smoking Status: Never Smoker Frequency of alcohol use: None Drug Abuse: None Lives with: Shelter Family History: Reviewed & Not Pertinent, Malignancy - Past Medical History Cardiac Medical History: Reports: Hx Congestive Heart Failure, Hx Coronary Artery Disease, Hx Hypercholesterolemia, Hx Hypertension Denies: Hx DVT, Hx Heart Attack, Hx Pulmonary Embolism Pulmonary Medical History: Denies: Hx Asthma, Hx COPD, Hx Sleep Apnea Neurological Medical History: Denies: Hx Seizures Endocrine Medical History: Reports: Hx Diabetes Mellitus Type 2, Hx Hypothyroidism. Denies: Hx Hyperthyroidism Renal/ Medical History: Denies: Hx Peritoneal Dialysis Malignancy Medical History: Reports: Hx Skin Cancer - Excised from forehead. GI Medical History: Reports: Hx Gastroesophageal Reflux Disease, Hx Hiatal Hernia. Denies: Hx Cirrhosis, Hx Hepatitis Musculoskeltal Medical History: Reports Hx Arthritis Psychiatric Medical History: Reports: Hx Dementia, Hx Depression - History of Infectious Medical History: Denies: Hx Hepatitis Past Surgical History: Reports: Hx Appendectomy, Hx Cardiac Surgery - Cardiac stent placed, Hx Section, Hx Coronary Stent, Hx Orthopedic Surgery - Left hip fracture repair, October 02, 2016. Denies: Hx Cholecystectomy - Immunizations Hx Diphtheria, Pertussis, Tetanus Vaccination: Yes Hx Pneumococcal Vaccination: 02/27/16 Review of Systems - Review of Systems Notes: REVIEW OF SYSTEMS: CONSTITUTIONAL : Denies fever, chills, or sweats. Denies recent illness. EENT: Denies eye, ear, throat, or mouth pain or symptoms. Denies nasal or sinus congestion or discharge. Denies throat, tongue, or mouth swelling or difficulty swallowing. CARDIOVASCULAR: Denies chest pain. Denies palpitations or racing or irregular heart beat. Denies ankle edema. RESPIRATORY: Denies cough, cold, or chest congestion. Denies shortness of breath, difficulty breathing, or wheezing. GASTROINTESTINAL: Denies abdominal pain or distention. Denies nausea, vomiting , or diarrhea. Denies blood in vomitus, stools, or per rectum. Denies black, tarry stools. Denies constipation. GENITOURINARY: Denies difficulty urinating, painful urination, burning, frequency, blood in urine, or discharge. FEMALE GENITOURINARY: Denies vaginal bleeding, heavy or abnormal periods, irregular periods. Denies vaginal discharge or odor. MUSCULOSKELETAL: Denies back or neck pain or stiffness. Denies joint pain or swelling. SKIN: Denies rash or sores. HEMATOLOGIC : Denies easy bruising or bleeding. LYMPHATIC: Denies swollen, enlarged glands. NEUROLOGICAL: Denies confusion or altered mental status. Denies passing out or loss of consciousness. Denies dizziness or lightheadedness. Denies headache. Denies weakness or paralysis or loss of use of either side. Denies problems with gait or speech. Denies sensory loss, numbness, or tingling. Denies seizures. PSYCHIATRIC: Denies anxiety or stress. Denies depression, suicidal ideation, or homicidal ideation. ALL OTHER SYSTEMS REVIEWED AND NEGATIVE. Dictation was performed using [employer] voice recognition software Physical Exam - Vital signs Vitals: Pulse Resp BP Pulse Ox 84 16 139/55 H 96 10/28/16 02:52 10/28/16 02:52 10/28/16 02:52 10/28/16 02:52 - Notes Notes: PHYSICAL EXAMINATION: GENERAL: Well-appearing, well-nourished and in no acute distress. HEAD: Atraumatic, normocephalic. EYES: Pupils equal round and reactive to light, extraocular movements intact, conjunctiva are normal. ENT: Nares patent, oropharynx clear without exudates. Moist mucous membranes. NECK: Normal range of motion, supple without lymphadenopathy LUNGS: Breath sounds clear to auscultation bilaterally and equal. No wheezes rales or rhonchi. HEART: Regular rate and rhythm without murmurs ABDOMEN: Soft, nontender, nondistended abdomen. No guarding, no rebound. No masses appreciated. Female : deferred Musculoskeletal: Normal range of motion, no pitting or edema. No cyanosis. NEUROLOGICAL: Cranial nerves grossly intact. Normal sensory, motor exams. Patient is alert to person only, but this is her baseline. PSYCH: Normal mood, normal affect. SKIN: Warm, Dry, normal turgor, no rashes or lesions noted. Insertion site from the previous PICC line appears clear in the right upper medial arm. No evidence for cellulitis and only minimal bruising noted. No discharge noted. Distally she is neurovascularly intact. Course - Re-evaluation Re-evalutation: 10/28/16 05:25 Given that the patient was supposed to have 6 weeks of Zosyn therapy, order for replacement of PICC line was made. Plan for discharge after PICC line placement. Antibiotic ointment applied to the previous PICC line insertion site. 10/28/16 05:25 - Vital Signs Vital signs: Temp Pulse Resp BP Pulse Ox 98.6 F 84 16 139/55 H 96 10/28/16 02:58 10/28/16 02:52 10/28/16 02:52 10/28/16 02:52 10/28/16 02:52 Discharge - Discharge Clinical Impression: Peripherally inserted central catheter in place Condition: Stable Disposition: SNF
--- NOTE | 2016-10-28 10:51 | RADIOLOGY REPORT (SQ) ---
EXAM DESCRIPTION: PICC INSERTION; FLUORO/CV PLACEMENT; U/S GUIDE FOR VASCULAR ACCESS COMPLETED DATE/TIME: 10/28/2016 10:31 am REASON FOR STUDY: PICC line placement; IV ACCESS COMPARISON: None. FLUOROSCOPY TIME: 1 minutes 6 seconds 2 images saved to PACS. TECHNIQUE: Fluoroscopic and ultrasound guided PICC placement. LIMITATIONS: None. PROCEDURE: After written consent and assessment were obtained, the patient was brought into the fluo roscopy room and place supine on the table. Ultrasound was used on the patient's right arm for PICC access. The right arm was prepped and draped in a sterile fashion along with the ultrasound probe. Th e entry site was anesthetized with 1% lidocaine. A 21 gauge 7 cm needle was advanced through the skin and into the basilic vein under live ultrasound guidance. An ultrasound image was saved to PACS con firming access site. A .018 guide wire was then inserted through the needle and into the venous syst em. The needle was the removed and an 11 blade scalpel was used to make a 1cm skin incision. A 5 fr peel-away sheath was advanced over the wire and into the venous system. A measurement was then made u sing the existing wire and live fluoroscopic guidance. The wire was then removed and the trimmed. The PICC was advanced through the peel-away sheath and into the venous system. The peel-away sheath was removed and the catheter was adhered to the patients arm with a stat lock. The catheter was then aspi rated and flushed and a sterile bandage was placed over the access site. A fluoroscopic spot image w as saved to PACS confirming the catheter tip within the SVC. IMPRESSION: SUCCESSFUL PLACEMENT OF A 5 FR DUAL LUMEN 33 CM PICC IN THE right basilic VEIN. COMMENT: Patient medication list reviewed: Yes- Quality ID# [id number]:Eligible professional attests to doc umenting in the medical record they obtained, updated, or reviewed the patient's current medications. . Quality ID 145: Final reports for procedures using fluoroscopy that document radiation exposure nicolas jimy, or exposure time and number of fluorographic images (if radiation exposure indices are not avail able) Quality ID #76: The patient was prepped and draped using maximum sterile barrier technique including cap, mask, sterile gown, sterile gloves, a large sterile sheet, hand hygiene, and 2% Chlorhexidine fo r cutaneous antisepsis. When ultrasound is used, sterile ultrasound techniques are followed requiring sterile gel and sterile probes. TECHNICAL DOCUMENTATION: JOB ID: [id number] [employer]- All Rights Reserved
[2016-10-28 12:58] VITALS: BP 156/62
== END 2016-10-28 12:58 ==
LOC: ER 02:47
PROC: 05HY33Z Insertion of Infusion Device into Upper Vein, Percutaneous Approach (ICD-10-PCS; principal; 2016-10-28)
DX: T82.9XXA Unspecified complication of cardiac and vascular prosthetic device, implant and graft, initial encounter (principal)
CPT/HCPCS: 99284; 82962; 36569 ×2; 77001; 76937; J3490; J1642

== ENCOUNTER 2016-10-30 12:43 | Emergency (ER) | payer MEDICARE ==
--- NOTE | 2016-10-30 12:58 | ER Document Report ---
ED General - General Stated Complaint: PULLED OUT PIC LINE Time Seen by Provider: 10/30/16 12:56 TRAVEL OUTSIDE OF THE [place] IN LAST 30 DAYS: No - HPI Patient complains to provider of: In need of IV Notes: Sent from local intermediate after pulling out her PICC line for IV antibiotics. Otherwise patient has no other complaints history of dementia - Related Data Allergies/Adverse Reactions: adhesive tape [Adhesive Tape] Allergy (Verified 09/30/16 23:24) alatrofloxacin mesylate [From Trovan] Allergy (Verified 09/30/16 23:24) aspirin [Aspirin] Allergy (Verified 09/30/16 23:24) codeine [Codeine] Allergy (Verified 09/30/16 23:24) diazepam [From Valium] Allergy (Verified 09/30/16 23:24) morphine [Morphine] Allergy (Verified 09/30/16 23:24) oxycodone [Oxycodone] Allergy (Verified 09/30/16 23:24) Shellfish * [Shellfish] Allergy (Verified 09/30/16 23:24) trovafloxacin mesylate [From Trovan] Allergy (Verified 09/30/16 23:24) darvel Allergy (Uncoded 09/30/16 23:24) dust Allergy (Uncoded 09/30/16 23:24) mold Allergy (Uncoded 09/30/16 23:24) steroids Allergy (Uncoded 09/30/16 23:24) Past Medical History - Social History Smoking Status: Unknown if Ever Smoked Family History: Reviewed & Not Pertinent, Malignancy - Past Medical History Cardiac Medical History: Reports: Hx Congestive Heart Failure, Hx Coronary Artery Disease, Hx Hypercholesterolemia, Hx Hypertension Denies: Hx DVT, Hx Heart Attack, Hx Pulmonary Embolism Pulmonary Medical History: Denies: Hx Asthma, Hx COPD, Hx Sleep Apnea Neurological Medical History: Denies: Hx Seizures Endocrine Medical History: Reports: Hx Diabetes Mellitus Type 2, Hx Hypothyroidism. Denies: Hx Hyperthyroidism Renal/ Medical History: Denies: Hx Peritoneal Dialysis Malignancy Medical History: Reports: Hx Skin Cancer - Excised from forehead. GI Medical History: Reports: Hx Gastroesophageal Reflux Disease, Hx Hiatal Hernia. Denies: Hx Cirrhosis, Hx Hepatitis Musculoskeltal Medical History: Reports Hx Arthritis Psychiatric Medical History: Reports: Hx Dementia, Hx Depression - History of Infectious Medical History: Denies: Hx Hepatitis Past Surgical History: Reports: Hx Appendectomy, Hx Cardiac Surgery - Cardiac stent placed, Hx Section, Hx Coronary Stent, Hx Orthopedic Surgery - Left hip fracture repair, October 02, 2016. Denies: Hx Cholecystectomy - Immunizations Hx Diphtheria, Pertussis, Tetanus Vaccination: Yes Hx Pneumococcal Vaccination: 02/27/16 Review of Systems - Review of Systems -: Yes ROS unobtainable due to patient's medical condition - Dementia Physical Exam - Vital signs Vitals: Temp Pulse Resp BP Pulse Ox 99.0 F 79 16 126/56 H 96 10/30/16 12:56 10/30/16 12:56 10/30/16 12:56 10/30/16 12:56 10/30/16 12:56 Interpretation: Normal - General General appearance: Appears well, Alert - HEENT Head: Normocephalic, Atraumatic Eyes: Normal Pupils: PERRL - Respiratory Respiratory status: No respiratory distress Chest status: Nontender Breath sounds: Normal Chest palpation: Normal - Cardiovascular Rhythm: Regular Heart sounds: Normal auscultation Murmur: No - Abdominal Inspection: Normal Distension: No distension Bowel sounds: Normal Tenderness: Nontender Organomegaly: No organomegaly - Back Back: Normal, Nontender - Extremities General upper extremity: Normal inspection, Nontender, Normal color, Normal ROM , Normal temperature, Other - No signs of PICC line infection General lower extremity: Normal inspection, Nontender, Normal color, Normal ROM , Normal temperature, Normal weight bearing. No: Rossy's sign - Neurological Neuro grossly intact: Yes - Skin Skin Temperature: Warm Skin Moisture: Dry Skin Color: Normal Course - Re-evaluation Re-evalutation: 10/30/16 15:42 An IV was established in the patient's left arm by our nursing staff. The PICC line was accounted for there is no discrepancy in the length from when it was present here in the hospital from the PICC line that was removed. I suspect there is no retained PICC line in the patient's system therefore we will discharge the patient back to the intermediate where she can have her IV antibiotics through the IV. Recommend patient follow-up tomorrow for outpatient PICC line - Vital Signs Vital signs: Temp Pulse Resp BP Pulse Ox 99.0 F 79 16 126/56 H 96 10/30/16 12:56 10/30/16 12:56 10/30/16 12:56 10/30/16 12:56 10/30/16 12:56 Discharge - Discharge Clinical Impression: Encounter for intravenous line placement Condition: Good Disposition: HOME, SELF-CARE Additional Instructions: Patient's PICC line site shows no signs of infection. Patient has a IV established in the left arm. This should be sufficient for IV antibiotics. Please continue IV antibiotics as scheduled at your facility. I would highly recommend that the physician schedule tomorrow for outpatient PICC line placement by our radiology team in the radiology suite. Patient can be discharged from the ER Referrals: LONA GALEAS MD [ACTIVE STAFF] - Follow up as needed
[2016-10-30 13:13] VITALS: BP 126/56
== END 2016-10-30 13:47 | disposition home or self-care (01) ==
LOC: ER 12:43
DX: Z76.89 Persons encountering health services in other specified circumstances (principal); I50.9 Heart failure, unspecified; I25.10 Atherosclerotic heart disease of native coronary artery without angina pectoris; E78.00 Pure hypercholesterolemia, unspecified; I11.0 Hypertensive heart disease with heart failure; E03.9 Hypothyroidism, unspecified; E11.9 Type 2 diabetes mellitus without complications; Z91.013 Allergy to seafood; Z88.6 Allergy status to analgesic agent; Z85.828 Personal history of other malignant neoplasm of skin
CPT/HCPCS: 99284

== ENCOUNTER → 2016-11-03 | Outpatient (CLI) | payer MEDICARE, OTHER ==
[2016-11-04 12:03] LABS: BLOOD UREA NITROGEN 15 mg/dL (7-20); CALCIUM 8.1 mg/dL (8.4-10.2); CREATININE RESULT 0.83 mg/dL (0.52-1.25); GLUCOSE 63 mg/dL (75-110)
[2016-11-04 12:05] LABS: ANION GAP 7 (5-19); CARBON DIOXIDE 23 mmol/L (22-30); CHLORIDE 112 mmol/L (98-107); SODIUM 142.3 mmol/L (137-145)
[2016-11-04 12:06] LABS: ALANINE AMINOTRANSFERASE 19 U/L (9-52); ALKALINE PHOSPHATASE 73 U/L (38-126); ASPARTATE AMINO TRANSFERASE 20 U/L (14-36); BILIRUBIN,TOTAL 0.3 mg/dL (0.2-1.3); CHOLESTEROL 88.76 mg/dL (0-200); DIRECT LDL 46 mg/dL (<100); Direct HDL 26 mg/dL (>40); TOTAL PROTEIN 4.8 g/dL (6.3-8.2); TRIGLYCERIDES 41 mg/dL (<150); VLDL CHOLESTEROL 8.2 mg/dL (10-31)
[2016-11-04 12:07] LABS: BILIRUBIN,DIRECT 0.2 mg/dL (0.0-0.4)
== END ==
LOC: LAB 12:37
PROVIDERS: ATTEND Internal Medicine
DX: E87.6 Hypokalemia (principal); E11.9 Type 2 diabetes mellitus without complications; E03.9 Hypothyroidism, unspecified; I10 Essential (primary) hypertension
CPT/HCPCS: 36415; 80048; 80053; 80061; 80076; 83036; 84443

== ENCOUNTER 2016-11-07 21:02 | Emergency (ER) | payer MEDICARE ==
--- NOTE | 2016-11-07 21:36 | ER Document Report ---
ED General - General Chief Complaint: Other Stated Complaint: PIC LINE ISSUES Time Seen by Provider: 11/07/16 21:32 Notes: The patient is an 86-year-old female, past medical history Alzheimer's, presents from [facility] after her PICC line fell out today. She is receiving IV antibiotics, but there are no notes from the residential to explain for what. Patient is confused and unable to answer any questions. TRAVEL OUTSIDE OF THE [place] IN LAST 30 DAYS: No - Related Data Allergies/Adverse Reactions: adhesive tape [Adhesive Tape] Allergy (Verified 09/30/16 23:24) alatrofloxacin mesylate [From Trovan] Allergy (Verified 09/30/16 23:24) aspirin [Aspirin] Allergy (Verified 09/30/16 23:24) codeine [Codeine] Allergy (Verified 09/30/16 23:24) diazepam [From Valium] Allergy (Verified 09/30/16 23:24) morphine [Morphine] Allergy (Verified 09/30/16 23:24) oxycodone [Oxycodone] Allergy (Verified 09/30/16 23:24) Shellfish * [Shellfish] Allergy (Verified 09/30/16 23:24) trovafloxacin mesylate [From Trovan] Allergy (Verified 09/30/16 23:24) darvel Allergy (Uncoded 09/30/16 23:24) dust Allergy (Uncoded 09/30/16 23:24) mold Allergy (Uncoded 09/30/16 23:24) steroids Allergy (Uncoded 09/30/16 23:24) Past Medical History - General Information source: Emergency Med Personnel - Social History Smoking Status: Unknown if Ever Smoked Family History: Reviewed & Not Pertinent, Malignancy Patient has suicidal ideation: No Patient has homicidal ideation: No - Past Medical History Cardiac Medical History: Reports: Hx Congestive Heart Failure, Hx Coronary Artery Disease, Hx Hypercholesterolemia, Hx Hypertension Denies: Hx DVT, Hx Heart Attack, Hx Pulmonary Embolism Pulmonary Medical History: Denies: Hx Asthma, Hx COPD, Hx Sleep Apnea Neurological Medical History: Denies: Hx Seizures Endocrine Medical History: Reports: Hx Diabetes Mellitus Type 2, Hx Hypothyroidism. Denies: Hx Hyperthyroidism Renal/ Medical History: Denies: Hx Peritoneal Dialysis Malignancy Medical History: Reports: Hx Skin Cancer - Excised from forehead. GI Medical History: Reports: Hx Gastroesophageal Reflux Disease, Hx Hiatal Hernia. Denies: Hx Cirrhosis, Hx Hepatitis Musculoskeltal Medical History: Reports Hx Arthritis Psychiatric Medical History: Reports: Hx Dementia, Hx Depression - History of Infectious Medical History: Denies: Hx Hepatitis Past Surgical History: Reports: Hx Appendectomy, Hx Cardiac Surgery - Cardiac stent placed, Hx Section, Hx Coronary Stent, Hx Orthopedic Surgery - Left hip fracture repair, October 02, 2016. Denies: Hx Cholecystectomy - Immunizations Hx Diphtheria, Pertussis, Tetanus Vaccination: Yes Hx Pneumococcal Vaccination: 02/27/16 Review of Systems - Review of Systems -: Yes ROS unobtainable due to patient's medical condition - Dementia Physical Exam - Vital signs Vitals: Temp Pulse Resp BP Pulse Ox 98.6 F 85 16 180/85 H 100 11/07/16 21:05 11/07/16 21:05 11/07/16 21:05 11/07/16 21:05 11/07/16 21:05 - Notes Notes: PHYSICAL EXAMINATION: GENERAL: Well-appearing, in no acute distress. HEAD: Atraumatic, normocephalic. EYES: Pupils equal round and reactive to light, extraocular movements intact, sclera anicteric, conjunctiva are normal. ENT: nares patent, oropharynx clear without exudates. Moist mucous membranes. NECK: Normal range of motion, supple without lymphadenopathy LUNGS: Breath sounds clear to auscultation bilaterally and equal. No wheezes rales or rhonchi. HEART: Regular rate and rhythm without murmurs ABDOMEN: Soft, nontender, normoactive bowel sounds. No guarding, no rebound. No masses appreciated. EXTREMITIES: RUE with dried blood where PICC line used to be, no swelling, strong distal pulses, normal range of motion, no pitting or edema. No cyanosis. NEUROLOGICAL: Cranial nerves grossly intact. Normal sensory and motor exams. SKIN: Warm, Dry, normal turgor, no rashes or lesions noted. Course - Re-evaluation Re-evalutation: Unable to obtain PICC line at night. IV placed and patient sent back to [facility] with instructions to obtain an outpatient PICC line. - Vital Signs Vital signs: Temp Pulse Resp BP Pulse Ox 98.6 F 74 16 159/70 H 99 11/07/16 21:05 11/07/16 22:08 11/07/16 22:08 11/07/16 22:08 11/07/16 22:08 Discharge - Discharge Clinical Impression: PIC line (peripherally inserted central catheter) removal Condition: Stable Disposition: HOME-ASSISTED LIVING Additional Instructions: Patient's PICC line site shows no signs of infection. Patient has a IV established in the left arm. This should be sufficient for IV antibiotics. Please continue IV antibiotics as scheduled at your facility. I would highly recommend that the physician schedule tomorrow for outpatient PICC line placement by our radiology team in the radiology suite. Patient can be discharged from the ER.
[2016-11-07 22:09] VITALS: BP 159/70
== END 2016-11-07 22:21 | disposition home health service (06) ==
LOC: ER 21:02
DX: Z45.2 Encounter for adjustment and management of vascular access device (principal); G30.9 Alzheimer's disease, unspecified; F02.80 Dementia in other diseases classified elsewhere, unspecified severity, without behavioral disturbance, psychotic disturbance, mood disturbance, and anxiety; I25.10 Atherosclerotic heart disease of native coronary artery without angina pectoris; I10 Essential (primary) hypertension; E11.9 Type 2 diabetes mellitus without complications; Z91.048 Other nonmedicinal substance allergy status; Z88.6 Allergy status to analgesic agent; Z88.5 Allergy status to narcotic agent; Z88.8 Allergy status to other drugs, medicaments and biological substances; Z91.013 Allergy to seafood; Z88.1 Allergy status to other antibiotic agents; Z85.828 Personal history of other malignant neoplasm of skin; Z98.61 Coronary angioplasty status
CPT/HCPCS: 99284

== ENCOUNTER 2017-01-03 23:41 | Emergency (ER) | payer MEDICARE ==
[2017-01-03 23:57] VITALS: BP 154/63
--- NOTE | 2017-01-03 23:57 | ER Document Report ---
ED General - General Chief Complaint: Fall Stated Complaint: LEFT HIP PAIN Time Seen by Provider: 01/03/17 23:51 Notes: Patient is a 86-year-old female who has a history of dementia. She has pain in her hips. Pain is worse in her left hip. She does not know why. She does not remember fall. [facility] does not repeat report a fall. She denies abdominal pain. No back pain. No neck pain. No chest pain. She denies any other pain whatsoever. No other complaints at this time. TRAVEL OUTSIDE OF THE [place] IN LAST 30 DAYS: No - Related Data Allergies/Adverse Reactions: adhesive tape [Adhesive Tape] Allergy (Verified 09/30/16 23:24) alatrofloxacin mesylate [From Trovan] Allergy (Verified 09/30/16 23:24) aspirin [Aspirin] Allergy (Verified 09/30/16 23:24) codeine [Codeine] Allergy (Verified 09/30/16 23:24) diazepam [From Valium] Allergy (Verified 09/30/16 23:24) morphine [Morphine] Allergy (Verified 09/30/16 23:24) oxycodone [Oxycodone] Allergy (Verified 09/30/16 23:24) Shellfish * [Shellfish] Allergy (Verified 09/30/16 23:24) trovafloxacin mesylate [From Trovan] Allergy (Verified 09/30/16 23:24) darvel Allergy (Uncoded 09/30/16 23:24) dust Allergy (Uncoded 09/30/16 23:24) mold Allergy (Uncoded 09/30/16 23:24) steroids Allergy (Uncoded 09/30/16 23:24) Past Medical History - Social History Smoking Status: Never Smoker Frequency of alcohol use: None Drug Abuse: None Family History: Reviewed & Not Pertinent, Malignancy - Past Medical History Cardiac Medical History: Reports: Hx Congestive Heart Failure, Hx Coronary Artery Disease, Hx Hypercholesterolemia, Hx Hypertension Denies: Hx DVT, Hx Heart Attack, Hx Pulmonary Embolism Pulmonary Medical History: Denies: Hx Asthma, Hx COPD, Hx Sleep Apnea Neurological Medical History: Denies: Hx Seizures Endocrine Medical History: Reports: Hx Diabetes Mellitus Type 2, Hx Hypothyroidism. Denies: Hx Hyperthyroidism Renal/ Medical History: Denies: Hx Peritoneal Dialysis Malignancy Medical History: Reports: Hx Skin Cancer - Excised from forehead. GI Medical History: Reports: Hx Gastroesophageal Reflux Disease, Hx Hiatal Hernia. Denies: Hx Cirrhosis, Hx Hepatitis Musculoskeltal Medical History: Reports Hx Arthritis Psychiatric Medical History: Reports: Hx Dementia, Hx Depression - History of Infectious Medical History: Denies: Hx Hepatitis Past Surgical History: Reports: Hx Appendectomy, Hx Cardiac Surgery - Cardiac stent placed, Hx Section, Hx Coronary Stent, Hx Orthopedic Surgery - Left hip fracture repair, October 02, 2016. Denies: Hx Cholecystectomy - Immunizations Hx Diphtheria, Pertussis, Tetanus Vaccination: Yes Hx Pneumococcal Vaccination: 02/27/16 Review of Systems - Review of Systems Notes: My Normal Review Basic REVIEW OF SYSTEMS: CONSTITUTIONAL : Denies fever, chills, or sweats. Denies recent illness. RESPIRATORY: Denies cough, cold, or chest congestion. Denies shortness of breath, difficulty breathing, or wheezing. GASTROINTESTINAL: Denies abdominal pain. Denies nausea, vomiting, or diarrhea. MUSCULOSKELETAL: Left hip pain. SKIN: Denies rash or skin lesions. NEUROLOGICAL: Denies altered mental status or loss of consciousness. Denies headache. Denies weakness or paralysis or loss of use of either side. Denies problems with gait or speech. Denies sensory or motor loss. ALL OTHER SYSTEMS REVIEWED AND NEGATIVE. Physical Exam - Vital signs Vitals: Temp Pulse Resp BP Pulse Ox 98.5 F 74 16 154/63 H 100 01/03/17 23:45 01/03/17 23:45 01/03/17 23:45 01/03/17 23:45 01/03/17 23:45 - Notes Notes: General Appearance: Well nourished, alert, cooperative, no acute distress, no obvious discomfort. Well appearing. Vitals: reviewed, See vital signs table. Head: no swelling or tenderness to the head Eyes: PERRL, EOMI, Conjuctiva clear Mouth: No decreasd moisture Neck: Supple, no neck tenderness, no step-offs or deformities Back: No thoracic or lumbar tenderness to palpation. No step-offs or deformities. Lungs: No wheezing, No rales, No rhonci, No accessory muscle use, good air exchange bilaterally. Heart: Normal rate, Regular rythm, No murmur, no rub Abdomen: Normal BS, soft, No rigidity, No abdominal tenderness, No guarding, no rebound, no abdominal masses, no organomegaly Extremities: strength 5/5 in all extremities, good pulses in all extremities, pain with range of motion or palpation of the left hip. Patient also has some pain over the right hip with range of motion and palpation. Remainder of extremities are nontender. Skin: warm, dry, appropriate color, no rash Neuro: speech clear, oriented x 1, normal affect, responds appropriately to questions. Good distal sensation in all extremities. Cranial nerves II through XII are intact. Course - Re-evaluation Re-evalutation: 01/04/17 01:59 Patient's x-rays were negative. She looks well. She has dementia but otherwise has no signs of distress. Patient will be discharged home. Dictation of this chart was performed using voice recognition software; therefore, there may be some unintended grammatical errors. - Vital Signs Vital signs: Temp Pulse Resp BP Pulse Ox 98.5 F 74 16 154/63 H 100 01/03/17 23:45 01/03/17 23:45 01/03/17 23:45 01/03/17 23:45 01/03/17 23:45 Discharge - Discharge Clinical Impression: No problem, feared complaint unfounded Condition: Good Disposition: HOME, SELF-CARE Additional Instructions: Please return to the ER if she has worsening pain, fevers, or appears unwell.
--- NOTE | 2017-01-04 01:49 | RADIOLOGY REPORT (SQ) ---
EXAM DESCRIPTION: HIP BILATERAL COMPLETED DATE/TIME: 01/04/2017 1:00 am REASON FOR STUDY: pain COMPARISON: 10/01/2016. NUMBER OF VIEWS: Two views. TECHNIQUE: AP pelvis and additional frog-leg view of the left hip. LIMITATIONS: None. FINDINGS: MINERALIZATION: Osteopenia. PRIMARY HIP: No fracture or dislocation. No worrisome bone lesions. OPPOSITE HIP: Left total hip arthroplasty. Chronic ossifications/ fragmentation at the lesser trocha nter of the proximal left femur. PUBIS AND ISCHIUM: No fracture. PELVIS: No fracture. SACRUM: No fracture or dislocation. No worrisome bone lesions. LOWER LUMBAR SPINE: Moderate disc desiccation. The the SOFT TISSUES: No findings. OTHER: No other significant finding. IMPRESSION: No acute findings. Left total hip arthroplasty. TECHNICAL DOCUMENTATION: JOB ID: [id number] [employer]- All Rights Reserved
== END 2017-01-04 04:10 | disposition home or self-care (01) ==
LOC: ER 23:41
DX: Z71.1 Person with feared health complaint in whom no diagnosis is made (principal); F03.90 Unspecified dementia, unspecified severity, without behavioral disturbance, psychotic disturbance, mood disturbance, and anxiety; I50.9 Heart failure, unspecified; I25.10 Atherosclerotic heart disease of native coronary artery without angina pectoris; E78.00 Pure hypercholesterolemia, unspecified; I11.0 Hypertensive heart disease with heart failure; E11.9 Type 2 diabetes mellitus without complications; E03.9 Hypothyroidism, unspecified; Z88.6 Allergy status to analgesic agent; Z91.013 Allergy to seafood; Z85.828 Personal history of other malignant neoplasm of skin
CPT/HCPCS: 73522; 99284

== ENCOUNTER → 2017-03-10 | Outpatient (CLI) | payer MEDICARE, OTHER | LOC: OD 13:51 | PROVIDERS: ATTEND Internal Medicine | DX: E11.9 Type 2 diabetes mellitus without complications (principal) | CPT/HCPCS: 36415; 83036 ==

== ENCOUNTER 2017-05-17 19:45 | Emergency (ER) | payer MEDICARE ==
[2017-05-17] MEDS ORDERED: LIDOCAINE 1%/EPINEPHRINE INJ 20 ML VIAL INJ ONE (20:28)
--- NOTE | 2017-05-17 20:29 | ER Document Report ---
ED Fall - General Chief Complaint: Head Injury without LOC Stated Complaint: FALL, HEAD INJURY Time Seen by Provider: 05/17/17 20:14 Notes: Patient is an 86-year-old female that comes emergency department from [facility] by EMS for chief complaint of a fall. Patient reportedly fell out of bed and hit her head and side on a chair. Patient has a laceration to the right side of her scalp, abrasions to her right elbow. Patient has dementia, she is normally nonverbal. Patient reported to not be on a blood thinner but on review of her medications she has Plavix listed. TRAVEL OUTSIDE OF THE [place] IN LAST 30 DAYS: No - Related data Allergies/Adverse Reactions: adhesive tape [Adhesive Tape] Allergy (Verified 09/30/16 23:24) alatrofloxacin mesylate [From Trovan] Allergy (Verified 09/30/16 23:24) aspirin [Aspirin] Allergy (Verified 09/30/16 23:24) codeine [Codeine] Allergy (Verified 09/30/16 23:24) diazepam [From Valium] Allergy (Verified 09/30/16 23:24) morphine [Morphine] Allergy (Verified 09/30/16 23:24) oxycodone [Oxycodone] Allergy (Verified 09/30/16 23:24) Shellfish * [Shellfish] Allergy (Verified 09/30/16 23:24) trovafloxacin mesylate [From Trovan] Allergy (Verified 09/30/16 23:24) darvel Allergy (Uncoded 09/30/16 23:24) dust Allergy (Uncoded 09/30/16 23:24) mold Allergy (Uncoded 09/30/16 23:24) steroids Allergy (Uncoded 09/30/16 23:24) Past Medical History - General Information source: Patient - Social History Smoking Status: Never Smoker Frequency of alcohol use: None Drug Abuse: None Lives with: Family, Custodial Family History: Reviewed & Not Pertinent, Malignancy Patient has suicidal ideation: No Patient has homicidal ideation: No - Past Medical History Cardiac Medical History: Reports: Hx Congestive Heart Failure, Hx Coronary Artery Disease, Hx Hypercholesterolemia, Hx Hypertension Denies: Hx DVT, Hx Heart Attack, Hx Pulmonary Embolism Pulmonary Medical History: Denies: Hx Asthma, Hx COPD, Hx Sleep Apnea Neurological Medical History: Denies: Hx Seizures Endocrine Medical History: Reports: Hx Diabetes Mellitus Type 2, Hx Hypothyroidism. Denies: Hx Hyperthyroidism Renal/ Medical History: Denies: Hx Peritoneal Dialysis Malignancy Medical History: Reports: Hx Skin Cancer - Excised from forehead. GI Medical History: Reports: Hx Gastroesophageal Reflux Disease, Hx Hiatal Hernia. Denies: Hx Cirrhosis, Hx Hepatitis Musculoskeltal Medical History: Reports Hx Arthritis Psychiatric Medical History: Reports: Hx Dementia, Hx Depression - History of Infectious Medical History: Denies: Hx Hepatitis Past Surgical History: Reports: Hx Appendectomy, Hx Cardiac Surgery - Cardiac stent placed, Hx Section, Hx Coronary Stent, Hx Orthopedic Surgery - Left hip fracture repair, October 02, 2016. Denies: Hx Cholecystectomy - Immunizations Hx Diphtheria, Pertussis, Tetanus Vaccination: Yes Hx Pneumococcal Vaccination: 02/27/16 Review of Systems - Review of Systems Constitutional: No symptoms reported EENT: No symptoms reported Cardiovascular: No symptoms reported Respiratory: No symptoms reported Gastrointestinal: No symptoms reported Genitourinary: No symptoms reported Female Genitourinary: No symptoms reported Musculoskeletal: No symptoms reported Skin: See HPI Hematologic/Lymphatic: No symptoms reported Neurological/Psychological: See HPI Physical Exam - Vital signs Vitals: Temp Pulse Resp BP Pulse Ox 98.0 F 78 15 145/58 H 96 05/17/17 19:56 05/17/17 19:56 05/17/17 19:56 05/17/17 19:56 05/17/17 19:56 Interpretation: Normal - General General appearance: Alert In distress: None - HEENT Head: Normocephalic. No: Atraumatic - 2 cm horizontal open wound over the right parietal scalp, otherwise unremarkable examination Eyes: Normal Conjunctiva: Normal Extraocular movements intact: Yes Eyelashes: Normal Pupils: PERRL Ears: Normal External canal: Normal Tympanic membrane: Normal Sinus: Normal Nasal: Normal Mouth/Lips: Normal Mucous membranes: Normal Pharynx: Normal Neck: Normal - Respiratory Respiratory status: No respiratory distress Chest status: Nontender Breath sounds: Normal. No: Decreased air movement, Wheezing Chest palpation: Normal - Cardiovascular Rhythm: Regular. No: Tachycardia Heart sounds: Normal auscultation, S1 appreciated, S2 appreciated Murmur: No - Abdominal Inspection: Normal Distension: No distension Bowel sounds: Normal Tenderness: Nontender. No: Tender, Guarding Organomegaly: No organomegaly - Back Back: Normal, Nontender. No: Tender, Vertebra tenderness - Extremities General upper extremity: Other - Skin abrasions over the lateral aspect of the right elbow. Mild generalized tenderness, full range of motion, normal wrist, hand, shoulder exam. General lower extremity: Normal inspection, Nontender, Normal ROM, Normal strength. No: Tender - Neurological Neuro grossly intact: Yes Cognition: Normal Orientation: AAOx4 [place] Coma Scale Eye Opening: Spontaneous [place] Coma Scale Verbal: Oriented [place] Coma Scale Motor: Obeys Commands [place] Coma Scale Total: 15 Speech: Normal Motor strength normal: LUE, RUE, LLE, RLE Sensory: Normal - Psychological Associated symptoms: Normal affect, Normal mood - Skin Skin Temperature: Warm Skin Moisture: Dry Skin Color: Normal Course - Re-evaluation Re-evalutation: Open wound on the head repaired after cleaning thoroughly. CAT scan of the head unremarkable. Right elbow skin abrasions cleaned and dressed, x-ray is unremarkable. Patient at baseline per , states she is actually slightly better than baseline including being more talkative and alert. Patient discharged with head injury precautions and return precautions. These were discussed with at bedside. He states understanding and agreement. - Vital Signs Vital signs: Temp Pulse Resp BP Pulse Ox 98.5 F 78 16 152/72 H 94 05/18/17 00:41 05/18/17 01:31 05/18/17 01:31 05/18/17 00:41 05/18/17 01:31 Procedures - Laceration/Wound Repair Right parietal scalp Wound length (cm): 3 - Wound noted to be longer after cleaning Wound's Depth, Shape: Irregular Laceration pre-procedure: Sterile PPE donned, StephanieClesurya applied - Surgical cleanser Anesthetic type: 1% Lidocaine w/epi Volume Anesthetic (mLs): 4 Wound explored: Clean, No foreign body removed Wound Debrided: Minimal Wound Repaired With: Jagruti Number of Sutures: 6 - [place] Layer Closure?: No Post-procedure NV exam normal: Yes Complications: No Discharge - Discharge Clinical Impression: Head injury Qualifiers: Encounter type: initial encounter Qualified Code(s): S09.90XA - Unspecified injury of head, initial encounter Fall Qualifiers: Encounter type: initial encounter Qualified Code(s): W19.XXXA - Unspecified fall, initial encounter Scalp laceration Qualifiers: Encounter type: initial encounter Qualified Code(s): S01.01XA - Laceration without foreign body of scalp, initial encounter Abrasion of right elbow Qualifiers: Encounter type: initial encounter Qualified Code(s): S50.311A - Abrasion of right elbow, initial encounter Condition: Stable Disposition: HOME, SELF-CARE Instructions: Head Injury Precautions ([facility]) Additional Instructions: CAT scan of the head and x-ray of the elbow do not show any concerning abnormalities. Jagruti need to come out in about 1 week. Keep area clean, clean gently with soap and water. Keep elbow abrasion dressed, dressed with topical antibiotic and clean dressing, change and clean daily. Follow-up with primary care. Return for any concerning symptoms, see head injury precautions listed below. Referrals: LONA GALEAS MD [Primary Care Provider] - Follow up as needed
--- NOTE | 2017-05-17 21:13 | RADIOLOGY REPORT (SQ) ---
EXAM DESCRIPTION: CT HEAD WITHOUT COMPLETED DATE/TIME: 05/17/2017 8:35 pm REASON FOR STUDY: head injury COMPARISON: 10/01/2016 TECHNIQUE: Axial images acquired through the brain without intravenous contrast. Images reviewed wi th bone, brain and subdural windows. Images stored on PACS. All CT scanners at this facility use dose modulation, iterative reconstruction, and/or weight based d osing when appropriate to reduce radiation dose to as low as reasonably achievable (ALARA). [facility]: Dose Right [facility]: CareDose [facility]: Dose Right [facility]: Teradose 4D [facility]: [employer] RADIATION DOSE: CT Rad equipment meets quality standard of care and radiation dose reduction techniq ues were employed. CTDIvol: 29.1 mGy. DLP: 629 mGy-cm. mGy. LIMITATIONS: None. FINDINGS: VENTRICLES: Normal size and contour. CEREBRUM: No masses. No hemorrhage. No midline shift. No evidence for acute infarction. Normal gra y/white matter differentiation. No areas of low density in the white matter. CEREBELLUM: No masses. No hemorrhage. No alteration of density. No evidence for acute infarction. EXTRAAXIAL SPACES: No fluid collections. No masses. ORBITS AND GLOBE: No intra- or extraconal masses. Normal contour of globe without masses. CALVARIUM: No fracture. PARANASAL SINUSES: No fluid or mucosal thickening. SOFT TISSUES: No mass or hematoma. OTHER: No other significant finding. IMPRESSION: No acute intracranial findings. EVIDENCE OF ACUTE STROKE: NO. COMMENT: Quality ID # [id number]: Final reports with documentation of one or more dose reduction techniques (e.g., Automated exposure control, adjustment of the mA and/or kV according to patient size, use of iterative reconstruction technique) TECHNICAL DOCUMENTATION: JOB ID: [id number] [place]-72 2010 [employer]- All Rights Reserved
--- NOTE | 2017-05-17 21:19 | RADIOLOGY REPORT (SQ) ---
EXAM DESCRIPTION: ELBOW RIGHT OVER 2 VIEWS COMPLETED DATE/TIME: 05/17/2017 8:32 pm REASON FOR STUDY: fall, wounds, pain COMPARISON: None. NUMBER OF VIEWS: Four views. TECHNIQUE: AP, lateral, and both oblique radiographic images acquired of the right elbow. LIMITATIONS: None. FINDINGS: MINERALIZATION: Normal. BONES: No acute fracture or dislocation. No worrisome bone lesions. JOINT: No effusion. SOFT TISSUES: Mild soft tissue swelling. No radiopaque foreign body. OTHER: No other significant finding. IMPRESSION: No fracture. TECHNICAL DOCUMENTATION: JOB ID: [id number] [employer]- All Rights Reserved
[2017-05-17] MEDS ORDERED: QUETIAPINE FUMARATE 25 MG TABLET PO ONE (22:51)
[2017-05-17] MEDS ORDERED: LORAZEPAM 0.5 MG TABLET PO ONE (22:51)
[2017-05-17] MEDS ORDERED: LORAZEPAM INJ 2 MG/1 ML VIAL IM ONE (23:22)
[2017-05-18 00:42] VITALS: BP 152/72
== END 2017-05-18 01:10 | disposition home or self-care (01) ==
LOC: ER 19:45
DX: S01.01XA Laceration without foreign body of scalp, initial encounter (principal); S50.311A Abrasion of right elbow, initial encounter; W06.XXXA Fall from bed, initial encounter; Y92.193 Bedroom in other specified residential institution as the place of occurrence of the external cause; F03.90 Unspecified dementia, unspecified severity, without behavioral disturbance, psychotic disturbance, mood disturbance, and anxiety; I25.10 Atherosclerotic heart disease of native coronary artery without angina pectoris; I10 Essential (primary) hypertension; E11.9 Type 2 diabetes mellitus without complications; Z85.828 Personal history of other malignant neoplasm of skin; Z79.02 Long term (current) use of antithrombotics/antiplatelets; Z91.048 Other nonmedicinal substance allergy status; Z88.6 Allergy status to analgesic agent; Z88.5 Allergy status to narcotic agent; Z88.8 Allergy status to other drugs, medicaments and biological substances; Z91.013 Allergy to seafood; Z88.1 Allergy status to other antibiotic agents; Z95.5 Presence of coronary angioplasty implant and graft
CPT/HCPCS: 99285; 73080; 70450; 12002; A9270 ×2; J3490; J2060

== ENCOUNTER 2017-05-26 16:26 | Emergency (ER) | payer MEDICARE ==
--- NOTE | 2017-05-26 16:40 | ER Document Report ---
ED General - General Chief Complaint: Fall Stated Complaint: HEAD INJURY/POSSIBLE SEIZURE Time Seen by Provider: 05/26/17 16:33 Notes: 86-year-old female presents with dementia from facility after a witnessed fall. Questionable seizure activity after the fall. Unknown loss of consciousness other than seizure. Here recently for a fall. Baseline demented but apparently she is at her normal baseline per facility. Open wound to left restoration per EMS. No other information available. TRAVEL OUTSIDE OF THE [place] IN LAST 30 DAYS: No - Related Data Allergies/Adverse Reactions: adhesive tape [Adhesive Tape] Allergy (Verified 09/30/16 23:24) alatrofloxacin mesylate [From Trovan] Allergy (Verified 09/30/16 23:24) aspirin [Aspirin] Allergy (Verified 09/30/16 23:24) codeine [Codeine] Allergy (Verified 09/30/16 23:24) diazepam [From Valium] Allergy (Verified 09/30/16 23:24) morphine [Morphine] Allergy (Verified 09/30/16 23:24) oxycodone [Oxycodone] Allergy (Verified 09/30/16 23:24) Shellfish * [Shellfish] Allergy (Verified 09/30/16 23:24) trovafloxacin mesylate [From Trovan] Allergy (Verified 09/30/16 23:24) darvel Allergy (Uncoded 09/30/16 23:24) dust Allergy (Uncoded 09/30/16 23:24) mold Allergy (Uncoded 09/30/16 23:24) steroids Allergy (Uncoded 09/30/16 23:24) Past Medical History - General Information source: Emergency Med Personnel - Social History Smoking Status: Unknown if Ever Smoked Family History: Reviewed & Not Pertinent, Malignancy - Past Medical History Cardiac Medical History: Reports: Hx Congestive Heart Failure, Hx Coronary Artery Disease, Hx Hypercholesterolemia, Hx Hypertension Denies: Hx DVT, Hx Heart Attack, Hx Pulmonary Embolism Pulmonary Medical History: Denies: Hx Asthma, Hx COPD, Hx Sleep Apnea Neurological Medical History: Denies: Hx Seizures Endocrine Medical History: Reports: Hx Diabetes Mellitus Type 2, Hx Hypothyroidism. Denies: Hx Hyperthyroidism Renal/ Medical History: Denies: Hx Peritoneal Dialysis Malignancy Medical History: Reports: Hx Skin Cancer - Excised from forehead. GI Medical History: Reports: Hx Gastroesophageal Reflux Disease, Hx Hiatal Hernia. Denies: Hx Cirrhosis, Hx Hepatitis Musculoskeltal Medical History: Reports Hx Arthritis Psychiatric Medical History: Reports: Hx Dementia, Hx Depression - History of Infectious Medical History: Denies: Hx Hepatitis Past Surgical History: Reports: Hx Appendectomy, Hx Cardiac Surgery - Cardiac stent placed, Hx Section, Hx Coronary Stent, Hx Orthopedic Surgery - Left hip fracture repair, October 02, 2016. Denies: Hx Cholecystectomy - Immunizations Hx Diphtheria, Pertussis, Tetanus Vaccination: Yes Hx Pneumococcal Vaccination: 02/27/16 Review of Systems - Review of Systems Notes: PHYSICAL EXAMINATION General: No acute distress, well-nourished Head: Healed laceration with scar tissue to the right parietal scalp with staple in place. New vertical laceration 4 cm lateral to the left orbit on the restoration area, normocephalic ENT: Mouth normal, oropharynx moist, no exudates or tonsillar enlargement Eyes: Conjunctiva normal, pupils equal, lids normal Neck: No JVD, supple, no guarding CVS: Normal rate, regular rhythm, no murmurs Resp: No resp distress, equal and normal breath sounds bilaterally GI: Nondistended, soft, no tenderness to palpation, no rebound or guarding Ext: No deformities, no edema, normal range of motion in upper and lower ext Back: No CVA or midline TTP Skin: Abrasions skin tears already treated over the right elbow. Laceration to left restoration. Lymphatic: No lymphadeopathy noted Neuro: Awake, alert. Nonverbal. Moves all extremity's. Does not follow commands. -: Yes ROS unobtainable due to patient's medical condition Physical Exam - Vital signs Vitals: Temp 97.9 F 05/26/17 16:38 Course - Re-evaluation Re-evalutation: 05/26/17 17:22 Fall with questionable seizures of dementia patient. Mental status is at baseline. Vital signs are normal. Differential includes ictal seizure versus seizure causing fall. We will check basic labs to rule out hypoglycemia hyponatremia and check CT to rule out bleed and fracture. Will repair laceration. Patient reassessed at 5:20 PM. Still at her neurologic baseline. is at bedside and think she is at her baseline as well. - Vital Signs Vital signs: Temp Pulse Resp BP Pulse Ox 97.9 F 05/26/17 16:38 - Laboratory Result Diagrams: 05/26/17 17:11 05/26/17 17:11 Laboratory results interpreted by me: 05/26/17 05/26/17 17:11 17:11 RBC 3.37 L Hgb 10.0 L Hct 29.5 L RDW 16.0 H BUN 29 H Glucose 143 H - Diagnostic Test Radiology reviewed: Image reviewed, Reports reviewed Procedures - Laceration/Wound Repair Left Upper Face Time completed: 18:05 Wound length (cm): 8 Wound's Depth, Shape: Superficial, Into muscle Laceration pre-procedure: Sterile PPE yvonnenedMelba applied Anesthetic type: 1% Lidocaine Volume Anesthetic (mLs): 5 Wound explored: Clean Irrigated w/ Saline (mLs): 50 Wound Debrided: Minimal Wound Repaired With: Sutures Suture Size/Type: 6:0 Number of Sutures: 10 Layer Closure?: No Deep Layer Suture Size/Type: 6:0 Post-procedure wound care: Other - Bacitracin Discharge - Discharge Clinical Impression: Fall from standing Qualifiers: Encounter type: initial encounter Qualified Code(s): W19.XXXA - Unspecified fall, initial encounter Condition: Good Disposition: HOME, SELF-CARE Instructions: Concussion ([facility]), Facial Laceration ([facility]) Additional Instructions: Please return to your primary care doctor in 5 days to get your stitches removed.
--- NOTE | 2017-05-26 17:06 | RADIOLOGY REPORT (SQ) ---
EXAM DESCRIPTION: CT HEAD WITHOUT COMPLETED DATE/TIME: 05/26/2017 4:52 pm REASON FOR STUDY: fall l head trauma COMPARISON: CT brain 05/17/2017, 10/01/2016 TECHNIQUE: Axial images acquired through the brain without intravenous contrast. Images reviewed wi th bone, brain and subdural windows. Images stored on PACS. All CT scanners at this facility use dose modulation, iterative reconstruction, and/or weight based d osing when appropriate to reduce radiation dose to as low as reasonably achievable (ALARA). [facility]: Dose Right [facility]: CareDose [facility]: Dose Right [facility]: Teradose 4D [facility]: [employer] RADIATION DOSE: CT Rad equipment meets quality standard of care and radiation dose reduction techniq ues were employed. CTDIvol: 29.1 mGy. DLP: 629 mGy-cm. mGy. LIMITATIONS: None. FINDINGS: VENTRICLES: Normal size and contour for age. CEREBRUM: No masses. No hemorrhage. No midline shift. No evidence for acute infarction. Mild age-a ppropriate bifrontal and biparietal white matter low attenuation from chronic small vessel disease CEREBELLUM: No masses. No hemorrhage. No alteration of density. No evidence for acute infarction. EXTRAAXIAL SPACES: No fluid collections. No masses. ORBITS AND GLOBE: No intra- or extraconal masses. Normal contour of globe without masses. CALVARIUM: No fracture. Diffuse hyperostosis frontalis interna PARANASAL SINUSES: No fluid or mucosal thickening. SOFT TISSUES: No mass or hematoma. OTHER: No other significant finding. IMPRESSION: No acute findings EVIDENCE OF ACUTE STROKE: NO. COMMENT: Quality ID # [id number]: Final reports with documentation of one or more dose reduction techniques (e.g., Automated exposure control, adjustment of the mA and/or kV according to patient size, use of iterative reconstruction technique) TECHNICAL DOCUMENTATION: JOB ID: [id number] All Rights Reserved
[2017-05-26 17:31] LABS: ABSOLUTE BASOPHILS # (AUTO) 0.1 10^3/uL (0.0-0.2); ABSOLUTE EOSINOPHILS # (AUTO) 0.3 10^3/uL (0.0-0.6); ABSOLUTE LYMPHOCYTES (AUTO) 1.3 10^3/uL (0.5-4.7); ABSOLUTE MONOCYTES (AUTO) 0.5 10^3/uL (0.1-1.4); ABSOLUTE NEUT (AUTO) 4.2 10^3/uL (1.7-8.2); BASOPHILS % (AUTO) 1.2 % (0-2); HEMATOCRIT 29.5 % (36.0-47.0); LYMPHOCYTES % (AUTO) 20.6 % (13-45); MEAN CORPUSCULAR HEMOGLOBIN 29.7 pg (27.0-33.4); MEAN CORPUSCULAR VOLUME 88 fl (80-97); MONOCYTES % (AUTO) 7.2 % (3-13); PLATELET COUNT 351 10^3/uL (150-450); RED BLOOD COUNT 3.37 10^6/uL (3.72-5.28); TOTAL CELLS COUNTED % (AUTO) 100 %; WHITE BLOOD COUNT 6.3 10^3/uL (4.0-10.5)
[2017-05-26] MEDS ORDERED: LIDOCAINE 1% INJ-PF (10 MG/ML) 30 ML SDV INFIL ONE (17:48)
[2017-05-26 17:52] LABS: ANION GAP 9 (5-19); BLOOD UREA NITROGEN 29 mg/dL (7-20); CALCIUM 9.5 mg/dL (8.4-10.2); CARBON DIOXIDE 28 mmol/L (22-30); CHLORIDE 104 mmol/L (98-107); GLUCOSE 143 mg/dL (75-110); POTASSIUM 4.3 mmol/L (3.6-5.0); SODIUM 140.9 mmol/L (137-145)
[2017-05-26 18:20] VITALS: BP 152/58
== END 2017-05-26 21:38 | disposition home or self-care (01) ==
LOC: ER 16:26
PROC: 0HQ1XZZ Repair Face Skin, External Approach (ICD-10-PCS; principal; 2017-05-26)
DX: S01.81XA Laceration without foreign body of other part of head, initial encounter (principal); W19.XXXA Unspecified fall, initial encounter
CPT/HCPCS: 99284; 36415; 85025; 80048; 70450; 12015; J3490

== ENCOUNTER 2017-08-06 19:47 | Emergency (ER) | payer MEDICARE, MEDICAID ==
[2017-08-06] MEDS ORDERED: LORAZEPAM INJ 2 MG/1 ML VIAL IM ONE (20:18)
--- NOTE | 2017-08-06 20:20 | ER Document Report ---
ED Fall - General Stated Complaint: FALL Time Seen by Provider: 08/06/17 20:09 Notes: Patient is an 87-year-old female comes emergency department for chief complaint of fall, she comes by EMS from [facility]. Patient was heard to fall from the other room, when staff came into the room patient was sitting on the bed. Patient does have an abrasion to the left side of her head/ shinto which appears to be new. She has an old abrasion to her right forearm. Patient is demented at baseline, reported to be baseline with staff. TRAVEL OUTSIDE OF THE [place] IN LAST 30 DAYS: No - Related data Allergies/Adverse Reactions: adhesive tape [Adhesive Tape] Allergy (Verified 09/30/16 23:24) alatrofloxacin mesylate [From Trovan] Allergy (Verified 09/30/16 23:24) aspirin [Aspirin] Allergy (Verified 09/30/16 23:24) codeine [Codeine] Allergy (Verified 09/30/16 23:24) diazepam [From Valium] Allergy (Verified 09/30/16 23:24) morphine [Morphine] Allergy (Verified 09/30/16 23:24) oxycodone [Oxycodone] Allergy (Verified 09/30/16 23:24) Shellfish * [Shellfish] Allergy (Verified 09/30/16 23:24) trovafloxacin mesylate [From Trovan] Allergy (Verified 09/30/16 23:24) darvel Allergy (Uncoded 09/30/16 23:24) dust Allergy (Uncoded 09/30/16 23:24) mold Allergy (Uncoded 09/30/16 23:24) steroids Allergy (Uncoded 09/30/16 23:24) Past Medical History - General Information source: Transfer Record, Emergency Med Personnel - Social History Smoking Status: Never Smoker Frequency of alcohol use: None Drug Abuse: None Lives with: Longterm Family History: Reviewed & Not Pertinent, Malignancy - Past Medical History Cardiac Medical History: Reports: Hx Congestive Heart Failure, Hx Coronary Artery Disease, Hx Hypercholesterolemia, Hx Hypertension Denies: Hx DVT, Hx Heart Attack, Hx Pulmonary Embolism Pulmonary Medical History: Denies: Hx Asthma, Hx COPD, Hx Sleep Apnea Neurological Medical History: Denies: Hx Seizures Endocrine Medical History: Reports: Hx Diabetes Mellitus Type 2, Hx Hypothyroidism. Denies: Hx Hyperthyroidism Renal/ Medical History: Denies: Hx Peritoneal Dialysis Malignancy Medical History: Reports: Hx Skin Cancer - Excised from forehead. GI Medical History: Reports: Hx Gastroesophageal Reflux Disease, Hx Hiatal Hernia. Denies: Hx Cirrhosis, Hx Hepatitis Musculoskeltal Medical History: Reports Hx Arthritis Psychiatric Medical History: Reports: Hx Dementia, Hx Depression - History of Infectious Medical History: Denies: Hx Hepatitis Past Surgical History: Reports: Hx Appendectomy, Hx Cardiac Surgery - Cardiac stent placed, Hx Section, Hx Coronary Stent, Hx Orthopedic Surgery - Left hip fracture repair, October 02, 2016. Denies: Hx Cholecystectomy - Immunizations Hx Diphtheria, Pertussis, Tetanus Vaccination: Yes Hx Pneumococcal Vaccination: 02/27/16 Review of Systems - Review of Systems Constitutional: No symptoms reported EENT: No symptoms reported Cardiovascular: No symptoms reported Respiratory: No symptoms reported Gastrointestinal: No symptoms reported Genitourinary: No symptoms reported Female Genitourinary: No symptoms reported Musculoskeletal: See HPI Skin: See HPI Hematologic/Lymphatic: No symptoms reported Neurological/Psychological: See HPI Physical Exam - Vital signs Vitals: Temp Pulse Resp BP Pulse Ox 97.4 F 71 20 124/55 L 98 08/06/17 22:17 08/06/17 22:17 08/06/17 22:17 08/06/17 22:17 08/06/17 22:17 Interpretation: Normal - General General appearance: Appears well In distress: None - HEENT Head: Normocephalic. No: Atraumatic - There is a small, less than 0.5 cm abrasion over the left lateral eyebrow area, no open wounds, no other traumatic findings of the head Eyes: Normal Conjunctiva: Normal Extraocular movements intact: Yes Eyelashes: Normal Pupils: PERRL Ears: Normal Sinus: Normal Nasal: Normal Mouth/Lips: Normal Mucous membranes: Normal Pharynx: Normal Neck: Normal - Respiratory Respiratory status: No respiratory distress Chest status: Nontender Breath sounds: Normal. No: Decreased air movement, Wheezing Chest palpation: Normal - Cardiovascular Rhythm: Regular. No: Tachycardia Heart sounds: Normal auscultation, S1 appreciated, S2 appreciated Murmur: No - Abdominal Inspection: Normal Distension: No distension Bowel sounds: Normal Tenderness: Nontender. No: Tender, Guarding Organomegaly: No organomegaly - Back Back: Normal, Nontender. No: Tender - Extremities General upper extremity: Nontender, Normal strength, Normal temperature. No: Normal inspection - There is an old abrasion over the right extensor forearm distally, no surrounding tenderness or ecchymosis, normal upper extremity exam otherwise General lower extremity: Normal inspection, Nontender, Normal strength, Normal temperature. No: Edema - Neurological Neuro grossly intact: Yes Cognition: Confused Orientation: Disoriented to place, Disoriented to time, Disoriented to events. No: Disoriented to person Yaneth Coma Scale Eye Opening: Spontaneous Yaneth Coma Scale Verbal: Confused Yaneth Coma Scale Motor: Obeys Commands [place] Coma Scale Total: 14 Speech: Normal Cranial nerves: Normal. 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 No tenderness over the hips, back, chest, abdomen, extremities except for an old abrasion over the right forearm. Patient is confused but she does cooperate. She did become agitated later, she was given Ativan, she takes this at home already for anxiety. After arrived patient became very calm. He states she is still at her baseline which is confused. CAT scan of the head and neck unremarkable. No other signs of trauma. Unremarkable vital signs. Patient will be discharged back to long-term care facility with head injury precautions. Discussed this with , he states understanding and agreement. - Vital Signs Vital signs: Temp Pulse Resp BP Pulse Ox 97.4 F 71 20 124/55 L 98 08/06/17 22:30 08/06/17 22:17 08/06/17 22:30 08/06/17 22:17 08/06/17 22:30 Discharge - Discharge Clinical Impression: Fall Qualifiers: Encounter type: initial encounter Qualified Code(s): W19.XXXA - Unspecified fall, initial encounter Head injury Qualifiers: Encounter type: initial encounter Qualified Code(s): S09.90XA - Unspecified injury of head, initial encounter Scalp abrasion Qualifiers: Encounter type: initial encounter Qualified Code(s): S00.01XA - Abrasion of scalp, initial encounter Condition: Stable Disposition: HOME, SELF-CARE Additional Instructions: Her evaluation and CAT scan imaging did not show any concerning abnormalities. Keep clean the abrasion on the scalp in the right forearm. Follow-up with primary care. Return to emergency department for any concerning symptoms, see additional instructions below. Head Injury Precautions At this point, there is no evidence that your head injury is serious. Observation is necessary, however. Take only clear liquids for the first few hours, unless told otherwise by the doctor. If no pain medication was prescribed, you may take acetaminophen according to the directions on the bottle. Do not take any medication that may alter your level of alertness (unless you've discussed it with the doctor first) . Limit activity for the first 24 hours. Bed rest is best. During the first 24 hours, check to see approximately every two to three hours that the patient is easily arousable, responds normally, and can perform common tasks such as walking without difficulty. Contact your doctor or go to the hospital if any of the following things occur: Persistent vomiting, difficulty in arousing the patient, worsening or continued headache, or failure to improve as expected. Head injuries can cause symptoms that persist for a few days or even a few weeks.
--- NOTE | 2017-08-06 21:25 | RADIOLOGY REPORT (SQ) ---
EXAM DESCRIPTION: CT HEAD WITHOUT COMPLETED DATE/TIME: 08/06/2017 9:02 pm REASON FOR STUDY: fall, head injury COMPARISON: 2017. TECHNIQUE: Axial images acquired through the brain without intravenous contrast. Images reviewed wi th bone, brain and subdural windows. Images stored on PACS. All CT scanners at this facility use dose modulation, iterative reconstruction, and/or weight based d osing when appropriate to reduce radiation dose to as low as reasonably achievable (ALARA). [facility]: Dose Right [facility]: CareDose [facility]: Dose Right [facility]: Teradose 4D [facility]: [employer] RADIATION DOSE: CT Rad equipment meets quality standard of care and radiation dose reduction techniq ues were employed. CTDIvol: 64.6 mGy. DLP: 1267 mGy-cm.mGy. LIMITATIONS: None. FINDINGS: VENTRICLES: Prominent. CEREBRUM: No masses. No hemorrhage. No midline shift. Areas of low density in the white matter mos t likely due to chronic micro-vascular ischemic change. No evidence for acute infarction. CEREBELLUM: No masses. No hemorrhage. No alteration of density. No evidence for acute infarction. EXTRAAXIAL SPACES: Age-related involutional change. No fluid collections. No masses. ORBITS AND GLOBE: No intra- or extraconal masses. Normal contour of globe without masses. CALVARIUM: No fracture. PARANASAL SINUSES: No fluid or mucosal thickening. SOFT TISSUES: No mass or hematoma. OTHER: No other significant finding. IMPRESSION: CHRONIC CHANGES OF ATROPHY AND MICROVASCULAR ISCHEMIA. NO ACUTE PROCESS. EVIDENCE OF ACUTE STROKE: NO. TECHNICAL DOCUMENTATION: JOB ID: [id number] Quality ID # [id number]: Final reports with documentation of one or more dose reduction techniques (e.g., Au tomated exposure control, adjustment of the mA and/or kV according to patient size, use of iterative reconstruction technique) 2010 [employer] - [employer]- All Rights Reserved Reading location - IP/workstation name: [email or web address]
--- NOTE | 2017-08-06 21:45 | RADIOLOGY REPORT (SQ) ---
EXAM DESCRIPTION: CT CERVICAL SPINE WITHOUT COMPLETED DATE/TIME: 08/06/2017 9:06 pm REASON FOR STUDY: fall, head injury COMPARISON: None. TECHNIQUE: Axial images acquired through the cervical spine without intravenous contrast. Images re viewed with lung, soft tissue and bone windows. Reconstructed coronal and sagittal MPR images review ed. Images stored on PACS. All CT scanners at this facility use dose modulation, iterative reconstruction, and/or weight based d osing when appropriate to reduce radiation dose to as low as reasonably achievable (ALARA). [facility]: Dose Right [facility]: CareDose [facility]: Dose Right [facility]: Teradose 4D [facility]: [employer] RADIATION DOSE: CT Rad equipment meets quality standard of care and radiation dose reduction techniq ues were employed. CTDIvol: 11.8 mGy. DLP: 267 mGy-cm. mGy. LIMITATIONS: None. FINDINGS: ALIGNMENT: Anatomic. MINERALIZATION: Normal. VERTEBRAL BODIES: No fractures or dislocation. DISCS: Multilevel disc space narrowing with osteophytes. FACETS, LATERAL MASSES, POSTERIOR ELEMENTS: Facet arthropathy. No fractures. No dislocation. No ac samish findings. HARDWARE: None in the spine. VISUALIZED RIBS: No fractures. LUNG APICES AND SOFT TISSUES: No significant or acute findings. OTHER: No other significant finding. IMPRESSION: CHRONIC DEGENERATIVE CHANGES. NO ACUTE FINDINGS. TECHNICAL DOCUMENTATION: JOB ID: [id number] Quality ID # [id number]: Final reports with documentation of one or more dose reduction techniques (e.g., Au tomated exposure control, adjustment of the mA and/or kV according to patient size, use of iterative reconstruction technique) 2010 [employer]- All Rights Reserved Reading location - IP/workstation name: [email or web address]
[2017-08-06 22:19] VITALS: BP 124/55
== END 2017-08-06 23:59 | disposition home or self-care (01) ==
LOC: ER 19:47
DX: S09.90XA Unspecified injury of head, initial encounter (principal); S00.01XA Abrasion of scalp, initial encounter; W19.XXXA Unspecified fall, initial encounter; E78.00 Pure hypercholesterolemia, unspecified; I11.0 Hypertensive heart disease with heart failure; I50.9 Heart failure, unspecified; E11.9 Type 2 diabetes mellitus without complications; E03.9 Hypothyroidism, unspecified; Z88.6 Allergy status to analgesic agent; Z91.09 Other allergy status, other than to drugs and biological substances
CPT/HCPCS: 99284; 96372; 70450; 72125; J2060

== ENCOUNTER 2017-09-08 04:25 | Emergency (ER) | payer MEDICARE, MEDICAID ==
[2017-09-08 04:32] VITALS: BP 161/57
[2017-09-08] MEDS ORDERED: ACETAMINOPHEN 325 MG TABLET PO ONE (06:19)
[2017-09-08] MEDS ORDERED: LIDOCAINE 1% INJ-PF (10 MG/ML) 30 ML SDV INJ ONE (06:21)
[2017-09-08] MEDS ORDERED: DIPHENHYDRAMINE HCL 50 MG CAPSULE PO ONE (06:29)
--- NOTE | 2017-09-08 06:40 | ER Document Report ---
ED General - General Chief Complaint: Fall Injury Stated Complaint: FALL Time Seen by Provider: 09/08/17 06:16 Mode of Arrival: Medic Information source: Patient, Relative, Emergency Med Personnel Cannot obtain history due to: Dementia Notes: 87 yr old female hx of dementia on plavix presents with complaints of fall and head injury just prior to arrival. Son notes patient has fallen 4x now in the past, similar laceration. Pt acting at baseline per son. TRAVEL OUTSIDE OF THE [place] IN LAST 30 DAYS: No - HPI Onset: Just prior to arrival Onset/Duration: Sudden Quality of pain: Achy Severity: Mild Pain Level: 1 Associated symptoms: Headache Exacerbated by: Denies Relieved by: Denies Similar symptoms previously: Yes Recently seen / treated by doctor: Yes - Related Data Allergies/Adverse Reactions: adhesive tape [Adhesive Tape] Allergy (Verified 09/30/16 23:24) alatrofloxacin mesylate [From Trovan] Allergy (Verified 09/30/16 23:24) aspirin [Aspirin] Allergy (Verified 09/30/16 23:24) codeine [Codeine] Allergy (Verified 09/30/16 23:24) diazepam [From Valium] Allergy (Verified 09/30/16 23:24) morphine [Morphine] Allergy (Verified 09/30/16 23:24) oxycodone [Oxycodone] Allergy (Verified 09/30/16 23:24) Shellfish * [Shellfish] Allergy (Verified 09/30/16 23:24) trovafloxacin mesylate [From Trovan] Allergy (Verified 09/30/16 23:24) darvel Allergy (Uncoded 09/30/16 23:24) dust Allergy (Uncoded 09/30/16 23:24) mold Allergy (Uncoded 09/30/16 23:24) steroids Allergy (Uncoded 09/30/16 23:24) Past Medical History - Social History Smoking Status: Never Smoker Cigarette use (# per day): No Chew tobacco use (# tins/day): No Smoking Education Provided: No Frequency of alcohol use: None Drug Abuse: None Family History: Reviewed & Not Pertinent, Malignancy Patient has suicidal ideation: No Patient has homicidal ideation: No - Past Medical History Cardiac Medical History: Reports: Hx Congestive Heart Failure, Hx Coronary Artery Disease, Hx Hypercholesterolemia, Hx Hypertension Denies: Hx DVT, Hx Heart Attack, Hx Pulmonary Embolism Pulmonary Medical History: Denies: Hx Asthma, Hx COPD, Hx Sleep Apnea Neurological Medical History: Denies: Hx Seizures Endocrine Medical History: Reports: Hx Diabetes Mellitus Type 2, Hx Hypothyroidism. Denies: Hx Hyperthyroidism Renal/ Medical History: Denies: Hx Peritoneal Dialysis Malignancy Medical History: Reports: Hx Skin Cancer - Excised from forehead. GI Medical History: Reports: Hx Gastroesophageal Reflux Disease, Hx Hiatal Hernia. Denies: Hx Cirrhosis, Hx Hepatitis Musculoskeltal Medical History: Reports Hx Arthritis Psychiatric Medical History: Reports: Hx Dementia, Hx Depression - History of Infectious Medical History: Denies: Hx Hepatitis Past Surgical History: Reports: Hx Appendectomy, Hx Cardiac Surgery - Cardiac stent placed, Hx Section, Hx Coronary Stent, Hx Orthopedic Surgery - Left hip fracture repair, October 02, 2016. Denies: Hx Cholecystectomy - Immunizations Hx Diphtheria, Pertussis, Tetanus Vaccination: Yes Hx Pneumococcal Vaccination: 02/27/16 Review of Systems - Review of Systems Notes: REVIEW OF SYSTEMS: CONSTITUTIONAL : Denies fever, chills, or sweats. Denies recent illness. EENT: Denies eye, ear, throat, or mouth pain or symptoms. Denies nasal or sinus congestion or discharge. Denies throat, tongue, or mouth swelling or difficulty swallowing. CARDIOVASCULAR: Denies chest pain. Denies palpitations or racing or irregular heart beat. Denies ankle edema. RESPIRATORY: Denies cough, cold, or chest congestion. Denies shortness of breath, difficulty breathing, or wheezing. GASTROINTESTINAL: Denies abdominal pain or distention. Denies nausea, vomiting , or diarrhea. Denies blood in vomitus, stools, or per rectum. Denies black, tarry stools. Denies constipation. GENITOURINARY: Denies difficulty urinating, painful urination, burning, frequency, blood in urine, or discharge. FEMALE GENITOURINARY: Denies vaginal bleeding, heavy or abnormal periods, irregular periods. Denies vaginal discharge or odor. MUSCULOSKELETAL: Denies back or neck pain or stiffness. Denies joint pain or swelling. SKIN: Admits laceration left forehead HEMATOLOGIC : Denies easy bruising or bleeding. LYMPHATIC: Denies swollen, enlarged glands. NEUROLOGICAL: Denies confusion or altered mental status. Denies passing out or loss of consciousness. Denies dizziness or lightheadedness. Denies headache. Denies weakness or paralysis or loss of use of either side. Denies problems with gait or speech. Denies sensory loss, numbness, or tingling. Denies seizures. PSYCHIATRIC: Denies anxiety or stress. Denies depression, suicidal ideation, or homicidal ideation. ALL OTHER SYSTEMS REVIEWED AND NEGATIVE. PHYSICAL EXAMINATION: GENERAL: Well-appearing, well-nourished and in no acute distress. HEAD: Left frontal hematoma measuring 3 x 3 cm with laceration measuring 5 cm EYES: Pupils equal round and reactive to light, extraocular movements intact, conjunctiva are normal. ENT: Nares patent, oropharynx clear without exudates. Moist mucous membranes. NECK: Normal range of motion, supple without lymphadenopathy LUNGS: Breath sounds clear to auscultation bilaterally and equal. No wheezes rales or rhonchi. HEART: Regular rate and rhythm without murmurs ABDOMEN: Soft, nontender, nondistended abdomen. No guarding, no rebound. No masses appreciated. Female : deferred Musculoskeletal: Normal range of motion, no pitting or edema. No cyanosis. NEUROLOGICAL: Cranial nerves grossly intact. Normal speech, normal gait. Normal sensory, motor exams PSYCH: Normal mood, normal affect. SKIN: Left frontal hematoma laceration d. Dictation was performed using [employer] voice recognition software Physical Exam - Vital signs Vitals: Temp Pulse Resp BP Pulse Ox 97.8 F 64 18 161/57 H 96 09/08/17 04:30 09/08/17 04:30 09/08/17 04:30 09/08/17 04:30 09/08/17 04:30 Course - Re-evaluation Re-evalutation: 09/08/17 06:40 Area was cleansed, a hematoma was noted that will require dressing, CT of the head has been emergently ordered, laceration repair will be performed 09/08/17 08:16 CT head noted only scalp hematoma, 8 sutures placed, pt had no complications and is stable for discharge After performing a Medical Screening Examination, I estimate there is LOW risk for OPEN FRACTURE, COMPARTMENT SYNDROME, TENDON RUPTURE, ACUTE NEUROVASCULAR INJURY, or RETAINED FOREIGN BODY, thus I consider the discharge disposition reasonable. Also, there is no evidence or peritonitis, sepsis, or toxicity. I have reevaluated this patient multiple times and no significant life threatening changes are noted. The patients son and I have discussed the diagnosis and risks, and we agree with discharging home with close follow-up with the understanding that symptoms and presentations can change. We also discussed returning to the Emergency Department immediately if new or worsening symptoms occur. We have discussed the symptoms which are most concerning (e.g., changing or worsening pain, fever, numbness, weakness, cool or painful digits) that necessitate immediate return. - Vital Signs Vital signs: Temp Pulse Resp BP Pulse Ox 97.8 F 64 18 161/57 H 96 09/08/17 04:30 09/08/17 04:30 09/08/17 04:30 09/08/17 04:30 09/08/17 04:30 - Diagnostic Test Radiology reviewed: Image reviewed - CT head without contrast notes scalp hematoma, Reports reviewed Discharge - Discharge Clinical Impression: Forehead laceration Qualifiers: Encounter type: initial encounter Qualified Code(s): S01.81XA - Laceration without foreign body of other part of head, initial encounter Scalp hematoma Qualifiers: Encounter type: initial encounter Qualified Code(s): S00.03XA - Contusion of scalp, initial encounter Dementia Qualifiers: Dementia type: Alzheimer's disease Alzheimer's disease onset: late-onset Dementia behavioral disturbance: with behavioral disturbance Qualified Code(s): G30.1 - Alzheimer's disease with late onset; F02.81 - Dementia in other diseases classified elsewhere with behavioral disturbance; F02.81 - Dementia in other diseases classified elsewhere with behavioral disturbance; F02.81 - Dementia in other diseases classified elsewhere with behavioral disturbance Condition: Stable Disposition: HOME, SELF-CARE Instructions: Laceration Care ([facility]) Additional Instructions: Follow-up in 3-5 days for removal of sutures or immediately if there are any signs of infection or any other concerns
[2017-09-08] MEDS ORDERED: LORAZEPAM 0.5 MG TABLET PO ONE (06:54)
--- NOTE | 2017-09-08 07:21 | RADIOLOGY REPORT (SQ) ---
EXAM DESCRIPTION: CT HEAD WITHOUT CLINICAL HISTORY: 87 years Female, fall, hit head COMPARISON: 3.04.15 TECHNIQUE: No contrast. Coronal and sagittal reformat. This exam was performed according to our departmental dose-optimization program, which includes automated exposure control, adjustment of the mA and/or kV according to patient size and/or use of iterative reconstruction technique. FINDINGS: No hemorrhage or infarct. No mass, mass effect, or midline shift. Small left frontotemporal scalp swelling. Atherosclerosis. Mild calvarial bossing. Mild white matter microangiopathy.Brain and extra-axial structures appear otherwise intact. IMPRESSION: Small scalp swelling.
--- NOTE | 2017-09-08 08:44 | RADIOLOGY REPORT (SQ) ---
EXAM DESCRIPTION: SHOULDER LEFT 2 OR MORE VIEWS COMPLETED DATE/TIME: 09/08/2017 7:25 am REASON FOR STUDY: fall COMPARISON: Chest film 10/16/2016 NUMBER OF VIEWS: Three views. TECHNIQUE: Internal rotation and Y-view images acquired of the left shoulder. LIMITATIONS: Portable technique, no external rotation view FINDINGS: Limited study, portable technique, osteoporotic patient. No gross glenohumeral dislocation. 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 AC joint intact. Left upper ribs clavicle, scapula, proximal humerus grossly intact. IMPRESSION: Limited study. No acute fracture or malalignment TECHNICAL DOCUMENTATION: JOB ID: [id number] 1530 [employer]- All Rights Reserved Reading location - IP/workstation name: [email or web address]
== END 2017-09-08 09:30 | disposition home or self-care (01) ==
LOC: ER 04:25
PROC: 0HQ1XZZ Repair Face Skin, External Approach (ICD-10-PCS; principal; 2017-09-08)
DX: S01.81XA Laceration without foreign body of other part of head, initial encounter (principal); G30.1 Alzheimer's disease with late onset; F02.81 Dementia in other diseases classified elsewhere, unspecified severity, with behavioral disturbance; R51 Headache; W19.XXXA Unspecified fall, initial encounter; Z91.81 History of falling; Z79.02 Long term (current) use of antithrombotics/antiplatelets; I25.10 Atherosclerotic heart disease of native coronary artery without angina pectoris; I10 Essential (primary) hypertension; E11.9 Type 2 diabetes mellitus without complications
CPT/HCPCS: 99285; 73030; 70450; 12011; A9270 ×3; J3490

== ENCOUNTER 2017-11-02 14:40 | Emergency (ER) | payer MEDICARE, MEDICAID ==
[2017-11-02] MEDS ORDERED: LIDOCAINE 1% INJ-PF (10 MG/ML) 30 ML SDV INJ ONE (15:10)
--- NOTE | 2017-11-02 15:17 | ER Document Report ---
ED General - General Chief Complaint: Finger Injury Stated Complaint: FINGER INJURY Time Seen by Provider: 11/02/17 15:07 TRAVEL OUTSIDE OF THE [place] IN LAST 30 DAYS: No - HPI Notes: Patient is an 87-year-old female with a history of dementia and diabetes, type II, who presents to the ED complaining of right distal third digit of the hand injury and laceration prior to arrival. Patient presents from the care home. We are told that she got her finger caught in a door and her distal finger/nail is almost completely degloved. Patient received Dilaudid by EMS. She is otherwise at baseline for her mentation, behavior. She has otherwise been eating and drinking without difficulties. He had no other concerns or complaints at this time. --pt with dementia, take rest of ROS with grain of salt--denies any headache, fever, chest pain, palpitations, syncope, cough, shortness of breath, wheeze, dyspnea, abdominal pain, nausea/vomiting/diarrhea, muscle paralysis/weakness, or rash. - Related Data Allergies/Adverse Reactions: adhesive tape [Adhesive Tape] Allergy (Verified 11/02/17 15:01) alatrofloxacin mesylate [From Trovan] Allergy (Verified 11/02/17 15:01) aspirin [Aspirin] Allergy (Verified 11/02/17 15:01) codeine [Codeine] Allergy (Verified 11/02/17 15:01) diazepam [From Valium] Allergy (Verified 11/02/17 15:01) morphine [Morphine] Allergy (Verified 11/02/17 15:01) oxycodone [Oxycodone] Allergy (Verified 11/02/17 15:01) Shellfish * [Shellfish] Allergy (Verified 11/02/17 15:01) trovafloxacin mesylate [From Trovan] Allergy (Verified 11/02/17 15:01) darvel Allergy (Uncoded 11/02/17 15:01) dust Allergy (Uncoded 11/02/17 15:01) mold Allergy (Uncoded 11/02/17 15:01) steroids Allergy (Uncoded 11/02/17 15:01) Past Medical History - General Cannot obtain history due to: Dementia - Social History Smoking Status: Unknown if Ever Smoked Family History: Reviewed & Not Pertinent, Malignancy - Past Medical History Cardiac Medical History: Reports: Hx Congestive Heart Failure, Hx Coronary Artery Disease, Hx Hypercholesterolemia, Hx Hypertension Denies: Hx DVT, Hx Heart Attack, Hx Pulmonary Embolism Pulmonary Medical History: Denies: Hx Asthma, Hx COPD, Hx Sleep Apnea Neurological Medical History: Denies: Hx Seizures Endocrine Medical History: Reports: Hx Diabetes Mellitus Type 2, Hx Hypothyroidism. Denies: Hx Hyperthyroidism Renal/ Medical History: Denies: Hx Peritoneal Dialysis Malignancy Medical History: Reports: Hx Skin Cancer - Excised from forehead. GI Medical History: Reports: Hx Gastroesophageal Reflux Disease, Hx Hiatal Hernia. Denies: Hx Cirrhosis, Hx Hepatitis Musculoskeltal Medical History: Reports Hx Arthritis Psychiatric Medical History: Reports: Hx Dementia, Hx Depression - History of Infectious Medical History: Denies: Hx Hepatitis Past Surgical History: Reports: Hx Appendectomy, Hx Cardiac Surgery - Cardiac stent placed, Hx Section, Hx Coronary Stent, Hx Orthopedic Surgery - Left hip fracture repair, October 02, 2016. Denies: Hx Cholecystectomy - Immunizations Hx Diphtheria, Pertussis, Tetanus Vaccination: Yes Hx Pneumococcal Vaccination: 02/27/16 Review of Systems - Review of Systems -: Yes ROS unobtainable due to patient's medical condition Physical Exam - Vital signs Vitals: Temp Pulse Resp BP Pulse Ox 98.1 F 96 18 123/68 96 11/02/17 15:00 11/02/17 15:00 11/02/17 15:00 11/02/17 15:00 11/02/17 15:00 - Notes Notes: PHYSICAL EXAMINATION: GENERAL: Well-appearing, well-nourished and in no acute distress. LUNGS: Breath sounds clear to auscultation bilaterally and equal. No wheezes rales or rhonchi. HEART: Regular rate and rhythm without murmurs, rubs, gallops. Musculoskeletal: Rt 3rd digit of hand: There is a 2.5-3 cm laceration wrapping around her distal finger with the base of her nail above the nail fold. The skin of the finger is still attached anteriorly. FROM at the DIP joint. N/V intact distal. Strength 5+/5. During start of procedure: Pt starting hitting her finger off of the tray table (dementia) and caused the wound to open further with an almost complete amputation and was hanging by the anterior tissue that was still connected. Extremities: No cyanosis, clubbing, or edema b/l. Peripheral pulses 2+. Capillary refill very poor to distal finger. NEUROLOGICAL: pt at baseline with her behavior/mentation. Normal sensory, motor exams PSYCH: Normal mood, normal affect. SKIN: see above. otherwise, Warm, Dry, normal turgor, no rashes or lesions noted. Course - Re-evaluation Re-evalutation: 11/02/17 16:18 Patient is an afebrile, well-hydrated, 87-year-old female who presents to the ED with an open fracture to the third distal finger with complete tuft fracture and almost complete amputation laceration. Vitals are acceptable. She has no significant tachycardia, tachypnea, or hypoxia. She is tolerating p.o. without difficulties and is nontoxic-appearing. See physical exam findings which worsened after the patient hit her finger off of the tray table and we are trying to repair. Wound was thoroughly irrigated and cleansed. See x-ray result. Wound edges were approximated appropriately utilizing 8 simple interrupted sutures although capillary refill continues to remain poor. I did speak with Dr. Felipe who advised 2 g of Rocephin IV and follow-up in the office with Dr. Regan tomorrow morning. Splint was also placed thereafter. I will send her home with Keflex and Bactrim. Conservative measures otherwise for symptoms. Recheck with your PCM in 3-5 days as well. Return to the ED with any worsening/ concerning symptoms otherwise as reviewed discharge. Patient will be discharged after completion of the Rocephin. 11/02/17 18:22 Pt has no new concerns or complaints. She did warrant 2mg haldol and 25mg benadryl IV due to behavior issues when the digital block wore off. I reviewed with Dr. Pinzon who was in agreement with the medical regimen. Vitals acceptable. Pt stable for discharge home. - Vital Signs Vital signs: Temp Pulse Resp BP Pulse Ox 98.1 F 96 18 123/68 96 11/02/17 16:58 11/02/17 15:00 11/02/17 16:58 11/02/17 15:00 11/02/17 16:58 Procedures - Laceration/Wound Repair Right Finger 3rd digit Time completed: 16:15 Wound length (cm): 2.5 Wound's Depth, Shape: Nail-avulsed, Other - Distal finger 80% amputated aside from the anterior connected tissue Laceration pre-procedure: Sterile PPE donned, Sterile drapes applied, Other - chlorhexadine/saline Anesthetic type: 1% Lidocaine Volume Anesthetic (mLs): 10 Wound explored: Clean - for the most part clean., No foreign body removed Irrigated w/ Saline (mLs): 200 Wound Debrided: Minimal Wound Repaired With: Sutures Suture Size/Type: 5:0, 4:0, Nylon Number of Sutures: 8 Layer Closure?: No Post-procedure wound care: Sterile dressing applied, Splint applied Post-procedure NV exam normal: No - Capillary refill at baseline from start, very poor. Complications: Yes - due to patient noncompliance. Multiple people trying to hold patient still Discharge - Discharge Clinical Impression: Open finger fracture Qualifiers: Encounter type: initial encounter Finger: middle finger Phalanx: distal Fracture alignment: nondisplaced Laterality: right Qualified Code(s): S62.662B - Nondisplaced fracture of distal phalanx of right middle finger, initial encounter for open fracture Condition: Stable Disposition: HOME, SELF-CARE Instructions: Laceration Care ([facility]), Tuft Fracture of the Finger ([facility]) Additional Instructions: Rest, Compression, Elevation Use splint as directed Tylenol/ibuprofen as needed F/u with your PCP in 3-5 days for a recheck You are to follow-up with orthopedics, Dr. Regan, tomorrow as directed by Dr. Felipe Return to the ED with any worsening symptoms and/or development of fever, headache, chest pain, palpitations, syncope, shortness of breath, trouble breathing, abdominal pain, n/v/d, muscle weakness/paralysis, numbness/tingling, swelling, redness, or other worsening symptoms that are concerning to you. Prescriptions: Cephalexin Monohydrate [Keflex 500 mg Capsule] 500 mg PO BID #20 capsule Sulfamethoxazole/Trimethoprim [Bactrim Ds Tablet] 1 each PO BID #20 tablet Referrals: LONA GALEAS MD [Primary Care Provider] - Follow up in 3-5 days [facility] [Provider Group] - Follow up tomorrow (Dr. Regan as told by Dr. Felipe for open tuft fracture )
[2017-11-02 15:21] VITALS: BP 123/68
--- NOTE | 2017-11-02 15:37 | RADIOLOGY REPORT (SQ) ---
EXAM DESCRIPTION: FINGER RIGHT COMPLETED DATE/TIME: 11/02/2017 3:28 pm REASON FOR STUDY: 3rd digit laceration, distal s/p injury COMPARISON: None. NUMBER OF VIEWS: Three views. TECHNIQUE: AP, lateral, and oblique images acquired of the right third finger. LIMITATIONS: None. FINDINGS: MINERALIZATION: Normal. BONES: Fracture of the tuft. 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 SOFT TISSUES: Soft tissue deformity of the distal finger. No radiopaque foreign body. Calcification s adjacent to the PIP joint. OTHER: No other significant finding. IMPRESSION: FRACTURE OF THE TUFT OF THE 3RD FINGER WITH ASSOCIATED SOFT TISSUE INJURY. CHRONIC DEGE NERATIVE CHANGES. COMMENT: SITE OF TRAUMA/COMPLAINT MARKED/STAMP COMPLETED: YES. TECHNICAL DOCUMENTATION: JOB ID: [id number] [employer]- All Rights Reserved Reading location - IP/workstation name: [email or web address]
[2017-11-02] MEDS ORDERED: CEFTRIAXONE 1 GM/D5W RTU 50 ML IV ONE ×2 (16:15→16:16)
[2017-11-02] MEDS ORDERED: CEFTRIAXONE 2 GM/D5W RTU 2 GM/50 ML RTUPB IV ONE (16:17)
[2017-11-02] MEDS ORDERED: ACETAMINOPHEN 325 MG TABLET PO ONE (17:11)
[2017-11-02] MEDS ORDERED: HYDROMORPHONE HCL INJ/PF 2 MG/ML AMPULE IV ONE (17:11)
[2017-11-02] MEDS ORDERED: DIPHENHYDRAMINE HCL 50 MG/ML VIAL IV ONE (17:30)
[2017-11-02] MEDS ORDERED: HALOPERIDOL LACTATE INJ 5 MG/1 ML VIAL IV ONE (17:30)
== END 2017-11-02 18:38 | disposition home or self-care (01) ==
LOC: ER 14:40
PROC: 0HQFXZZ Repair Right Hand Skin, External Approach (ICD-10-PCS; principal; 2017-11-02)
DX: S62.662B Nondisplaced fracture of distal phalanx of right middle finger, initial encounter for open fracture (principal); W23.0XXA Caught, crushed, jammed, or pinched between moving objects, initial encounter; Y92.129 Unspecified place in nursing home as the place of occurrence of the external cause; E11.9 Type 2 diabetes mellitus without complications; F03.90 Unspecified dementia, unspecified severity, without behavioral disturbance, psychotic disturbance, mood disturbance, and anxiety; I25.10 Atherosclerotic heart disease of native coronary artery without angina pectoris; I10 Essential (primary) hypertension
CPT/HCPCS: 99284; 96375; 96365; 73140; 12001; J1200; J1630; J3490; J1170; J0696

== ENCOUNTER → 2018-02-15 | Outpatient (CLI) | payer MEDICARE, MEDICAID ==
--- NOTE | 2018-02-15 15:04 | RADIOLOGY REPORT (SQ) ---
EXAM DESCRIPTION: FINGER LEFT COMPLETED DATE/TIME: 02/15/2018 2:54 pm REASON FOR STUDY: PAIN AND GURADING OF ARM left hand pain, no known injury COMPARISON: None. NUMBER OF VIEWS: Three views. TECHNIQUE: AP, lateral, and oblique images acquired of the left hand and fingers LIMITATIONS: None. FINDINGS: MINERALIZATION: Osteopenic BONES: No acute fracture or dislocation. No worrisome bone lesions. SOFT TISSUES: No soft tissue swelling. No foreign body. OTHER: Diffuse changes of age-appropriate osteoarthritis most pronounced at the 1st carpometacarpal j oint and interphalangeal joints of the fingers IMPRESSION: NO RADIOGRAPHIC EVIDENCE OF ACUTE INJURY. COMMENT: SITE OF TRAUMA/COMPLAINT MARKED/STAMP COMPLETED: None TECHNICAL DOCUMENTATION: JOB ID: [id number] [employer]- All Rights Reserved Reading location - IP/workstation name: [email or web address]
--- NOTE | 2018-02-15 15:05 | RADIOLOGY REPORT (SQ) ---
EXAM DESCRIPTION: FOREARM LEFT COMPLETED DATE/TIME: 02/15/2018 2:54 pm REASON FOR STUDY: PAIN AND GURADING OF ARM , no known injury COMPARISON: None. NUMBER OF VIEWS: Two views. TECHNIQUE: Two radiographic images acquired of the left forearm, including elbow and wrist in at jake st one projection. LIMITATIONS: Nonstandard radiographic positioning FINDINGS: MINERALIZATION: Osteopenic BONES: No acute fracture. No worrisome bone lesions. SOFT TISSUES: No obvious swelling or foreign body. OTHER: No other significant finding. IMPRESSION: NEGATIVE STUDY OF THE LEFT FOREARM. NO RADIOGRAPHIC EVIDENCE OF ACUTE INJURY. TECHNICAL DOCUMENTATION: JOB ID: [id number] [employer]- All Rights Reserved Reading location - IP/workstation name: [email or web address]
--- NOTE | 2018-02-15 15:07 | RADIOLOGY REPORT (SQ) ---
EXAM DESCRIPTION: HUMERUS LEFT COMPLETED DATE/TIME: 02/15/2018 2:54 pm REASON FOR STUDY: PAIN AND GURADING OF ARM COMPARISON: None. NUMBER OF VIEWS: Two views. TECHNIQUE: Two radiographic images were acquired of the left humerus to include elbow and shoulder i n at least one projection. LIMITATIONS: None. FINDINGS: MINERALIZATION: Osteopenic BONES: 1 cm lytic lesion left proximal humeral diaphysis could indicate myeloma/plasmacytoma. No fra cture. SOFT TISSUES: No obvious swelling or foreign body. OTHER: Advanced osteoarthritis at the left glenohumeral joint with [id number] appearance and bulky bony spurring IMPRESSION: Advanced osteoarthritis left shoulder 1 cm lytic lesion proximal left humerus could indicate a plasmacytoma or myeloma TECHNICAL DOCUMENTATION: JOB ID: [id number] [employer]- All Rights Reserved Reading location - IP/workstation name: [email or web address]
--- NOTE | 2018-02-15 15:09 | RADIOLOGY REPORT (SQ) ---
EXAM DESCRIPTION: WRIST LEFT 3 VIEWS COMPLETED DATE/TIME: 02/15/2018 2:54 pm REASON FOR STUDY: PAIN AND GURADING OF ARM no known trauma COMPARISON: None. NUMBER OF VIEWS: Three views. TECHNIQUE: AP, lateral, and oblique radiographic images acquired of the left wrist. LIMITATIONS: None. FINDINGS: MINERALIZATION: Osteopenic BONES: No acute fracture or dislocation. No worrisome bone lesions. Normal alignment. SOFT TISSUES: No soft tissue swelling. No foreign body. OTHER: There is advanced osteoarthritis at the 1st carpometacarpal joint IMPRESSION: No acute fracture or malalignment TECHNICAL DOCUMENTATION: JOB ID: [id number] [employer]- All Rights Reserved Reading location - IP/workstation name: [email or web address]
== END ==
LOC: RAD 13:44
PROVIDERS: ATTEND Internal Medicine
DX: M25.532 Pain in left wrist (principal)
CPT/HCPCS: 81001; 87086; 87088; 87186